=== PATIENT | male | born 1960 | race African-American/Black ===

== ENCOUNTER 2023-02-03 11:19 | Inpatient (IN) | payer OTHER ==
[~2023-02-03] VITALS: Ht 180.3 cm; Wt 87.8 kg
[2023-02-03] MEDS ORDERED: HYDROGEN PEROXIDE 118 ML SOLUTION ONE (12:04)
[2023-02-03] MEDS ORDERED: BACITRACIN 0.9 GM PACKET OINTMENT TP ONE (13:30)
[2023-02-03 13:56] LABS: COVID AG,FIA SOURCE NASOPHARYNGEAL
[2023-02-03 14:04] LABS: ALANINE AMINOTRANSFERASE 19 U/L (12-78); ALBUMIN 1.8 g/dL (3.4-5.0); ALKALINE PHOSPHATASE 166 U/L (46-116); ANION GAP 6 mmol/L (8-16); ASPARTATE AMINOTRANSFERASE 19 U/L (15-37); BILIRUBIN,TOTAL 0.6 mg/dL (0.1-1.0); CALCIUM, TOTAL 8.7 mg/dL (8.8-10.5); CARBON DIOXIDE 26 mmol/L (22-29); CHLORIDE 106 mmol/L (98-107); CREATININE 1.07 mg/dL (0.60-1.30); GLOMERULAR FILTR. RATE CALC > 60 mL/min (>60); GLUCOSE,RANDOM 155 mg/dL (70-110); LIPASE 35 U/L (73-393); SODIUM SERUM 138 mmol/L (136-145); TOTAL PROTEIN, SERUM 8.8 g/dL (6.4-8.2); UREA NITROGEN, BLOOD 13 mg/dL (7-18)
[2023-02-03 14:07] LABS: LACTIC ACID 0.9 mmol/L (0.4-2.0)
[2023-02-03] MEDS ORDERED: BACITRACIN 28 GM OINTMENT TP ONE (14:15)
[2023-02-03] MEDS ORDERED: POTASSIUM CHLORIDE 10% 40 MEQ/30 ML LIQUID UDCUP PO ONE (14:30)
[2023-02-03] MEDS ORDERED: CefTRIAXone 1 GM/DEXTROSE 50 ML IV ONE (14:30)
[2023-02-03 14:46] LABS: BASOPHILS % (AUTO) 0.2 % (0.0-2.0); EOSINOPHILS % (AUTO) 0.7 % (1.0-6.0); HEMATOCRIT 25.9 % (41-53); HEMOGLOBIN 7.6 g/dL (13.5-17.5); LYMPHOCYTES # (AUTO) 0.4 K/uL (1.0-4.8); MEAN CORPUSCULAR HEMOGLOBIN 21.1 pg (26.0-34.0); MEAN CORPUSCULAR HGB CONC 29.4 G/dL (31.0-37.0); MEAN CORPUSCULAR VOLUME 72 fL (80-100); MONOCYTES # (AUTO) 0.5 K/uL (0.1-1.0); MONOCYTES % (AUTO) 6.6 % (2.0-9.0); NEUTROPHILS # (AUTO) 6.4 K/uL (1.8-7.7); PLATELET COUNT (AUTO) 413 K/uL (150-450); RED BLOOD CELL COUNT(AUTO) 3.61 MIL/uL (4.50-5.90); RED CELL DISTRIBUTION WIDTH 18.1 % (11.5-14.5)
[2023-02-03 14:47] LABS: NEUTROPHILS % (AUTO) 86.5 % (40.0-70.0)
[2023-02-03 15:13] LABS: INFLUENZA TYPE A NEGATIVE FOR TYPE A (NEGATIVE); INFLUENZA TYPE B NEGATIVE FOR TYPE B (NEGATIVE)
[2023-02-03] MEDS ORDERED: *CLINICAL-LEVOFLOXACIN IVPB DOSING CLINICAL ONE (15:30)
[2023-02-03] MEDS ORDERED: ZOLPIDEM TARTRATE 5 MG TABLET PO PRN (15:30)
[2023-02-03] MEDS ORDERED: MAGNESIUM HYDROXIDE SUSPENSION 30 ML UDCUP PO PRN (15:30)
[2023-02-03] MEDS ORDERED: ACETAMINOPHEN 325 MG TABLET PO PRN (15:30)
[2023-02-03] MEDS ORDERED: BISACODYL 10 MG RECTAL RECTAL SUPPOSITORY PR PRN (15:30)
[2023-02-03] MEDS ORDERED: ONDANSETRON HCL 4 MG/2 ML VIAL IVP PRN (15:30)
[2023-02-03] MEDS ORDERED: MORPHINE SULFATE 2 MG/ML SYRINGE IVP PRN (15:30)
[2023-02-03] MEDS: LEVOFLOXACIN 750 MG/D5% WATER 150 ML IV SCH (16:25)
[2023-02-03] MEDS: HEPARIN SODIUM,PORCINE 5,000 UNITS/ML VIAL SQ SCH ×2 (16:30→23:05)
[2023-02-03] MEDS ORDERED: DIPHENOXYLATE/ATROP 2.5-0.025 MG TABLET PO ONE (18:15)
[2023-02-03] MEDS: DOCUSATE SODIUM 100 MG CAPSULE PO SCH (20:08)
[2023-02-03 21:43] LABS: BASOPHILS % (AUTO) 0.5 % (0.0-2.0); HEMOGLOBIN 7.7 g/dL (13.5-17.5); LYMPHOCYTES # (AUTO) 0.4 K/uL (1.0-4.8); LYMPHOCYTES % (AUTO) 5.5 % (22.0-44.0); MEAN CORPUSCULAR HEMOGLOBIN 21.3 pg (26.0-34.0); MEAN CORPUSCULAR HGB CONC 29.6 G/dL (31.0-37.0); MEAN CORPUSCULAR VOLUME 72 fL (80-100); MONOCYTES # (AUTO) 0.6 K/uL (0.1-1.0); MONOCYTES % (AUTO) 7.6 % (2.0-9.0); NEUTROPHILS # (AUTO) 6.6 K/uL (1.8-7.7); NEUTROPHILS % (AUTO) 85.4 % (40.0-70.0); PLATELET COUNT (AUTO) 398 K/uL (150-450); RED BLOOD CELL COUNT(AUTO) 3.61 MIL/uL (4.50-5.90); RED CELL DISTRIBUTION WIDTH 17.8 % (11.5-14.5)
[2023-02-04] VITALS (14 sets, daily range): BP systolic 128–151; BP diastolic 78–112
[2023-02-04] MEDS: HEPARIN SODIUM,PORCINE 5,000 UNITS/ML VIAL SQ SCH ×2 (07:13→16:21)
[2023-02-04 08:00] LABS: BASOPHILS % (AUTO) 0.7 % (0.0-2.0); EOSINOPHILS % (AUTO) 1.7 % (1.0-6.0); HEMATOCRIT 21.8 % (41-53); LYMPHOCYTES # (AUTO) 0.6 K/uL (1.0-4.8); LYMPHOCYTES % (AUTO) 10.8 % (22.0-44.0); MEAN CORPUSCULAR HEMOGLOBIN 21.6 pg (26.0-34.0); MEAN CORPUSCULAR HGB CONC 30.2 G/dL (31.0-37.0); MEAN CORPUSCULAR VOLUME 72 fL (80-100); MONOCYTES # (AUTO) 0.6 K/uL (0.1-1.0); MONOCYTES % (AUTO) 10.3 % (2.0-9.0); NEUTROPHILS # (AUTO) 4.4 K/uL (1.8-7.7); NEUTROPHILS % (AUTO) 76.5 % (40.0-70.0); PLATELET COUNT (AUTO) 318 K/uL (150-450); RED BLOOD CELL COUNT(AUTO) 3.05 MIL/uL (4.50-5.90); RED CELL DISTRIBUTION WIDTH 18.2 % (11.5-14.5)
[2023-02-04 08:06] LABS: HIV 1-2 SCREEN 4TH GEN W/RFLX Non Reactive (Non Reactive)
[2023-02-04 08:18] LABS: HEMOGLOBIN 6.6 g/dL (13.5-17.5)
[2023-02-04 08:24] LABS: ANION GAP 6 mmol/L (8-16); CALCIUM, TOTAL 8.5 mg/dL (8.8-10.5); CARBON DIOXIDE 24 mmol/L (22-29); CHLORIDE 107 mmol/L (98-107); CREATININE 1.12 mg/dL (0.60-1.30); GLOMERULAR FILTR. RATE CALC > 60 mL/min (>60); GLUCOSE,RANDOM 89 mg/dL (70-110); POTASSIUM 3.6 mmol/L (3.5-5.1); SODIUM SERUM 137 mmol/L (136-145); UREA NITROGEN, BLOOD 12 mg/dL (7-18)
[2023-02-04] MEDS: DOCUSATE SODIUM 100 MG CAPSULE PO SCH ×2 (09:00→21:00)
[2023-02-04] MEDS ORDERED: PANTOPRAZOLE SODIUM 40 MG DR TABLET PO SCH (09:00)
[2023-02-04 16:04] LABS: C.DIFF GDH ANTIGEN, Stool Negative (Negative); C.DIFF TOXINS A&B, Stool Negative (Negative)
[2023-02-04] MEDS: LEVOFLOXACIN 750 MG/D5% WATER 150 ML IV SCH (16:38)
[2023-02-04 16:49] LABS: HEMATOCRIT 24.4 % (41-53); HEMOGLOBIN 7.4 g/dL (13.5-17.5)
[2023-02-04] MEDS: HYDROCODONE/ACETAMINOPHEN 5-325 MG TABLET PO PRN (21:06)
[2023-02-04] MEDS ORDERED: HALOPERIDOL LACTATE 5 MG/ML VIAL IM ONE (22:30)
[2023-02-04] MEDS ORDERED: DiphenhydrAMINE HCL 50 MG/ML VIAL IM ONE (22:30)
[2023-02-04] MEDS ORDERED: LORazepam 2 MG/ML VIAL IM ONE (22:30)
[2023-02-05] VITALS (11 sets, daily range): BP systolic 142–157; BP diastolic 77–100
[2023-02-05 06:58] LABS: BASOPHILS % (AUTO) 0.6 % (0.0-2.0); EOSINOPHILS % (AUTO) 2.1 % (1.0-6.0); HEMATOCRIT 21.1 % (41-53); LYMPHOCYTES # (AUTO) 0.7 K/uL (1.0-4.8); LYMPHOCYTES % (AUTO) 14.7 % (22.0-44.0); MEAN CORPUSCULAR HEMOGLOBIN 22.6 pg (26.0-34.0); MEAN CORPUSCULAR HGB CONC 31.2 G/dL (31.0-37.0); MEAN CORPUSCULAR VOLUME 73 fL (80-100); MONOCYTES # (AUTO) 0.6 K/uL (0.1-1.0); MONOCYTES % (AUTO) 12.6 % (2.0-9.0); NEUTROPHILS # (AUTO) 3.3 K/uL (1.8-7.7); PLATELET COUNT (AUTO) 261 K/uL (150-450); RED BLOOD CELL COUNT(AUTO) 2.91 MIL/uL (4.50-5.90); RED CELL DISTRIBUTION WIDTH 19.6 % (11.5-14.5)
[2023-02-05 07:13] LABS: ANION GAP 7 mmol/L (8-16); CALCIUM, TOTAL 8.5 mg/dL (8.8-10.5); CARBON DIOXIDE 23 mmol/L (22-29); CHLORIDE 105 mmol/L (98-107); CREATININE 1.17 mg/dL (0.60-1.30); GLOMERULAR FILTR. RATE CALC > 60 mL/min (>60); GLUCOSE,RANDOM 108 mg/dL (70-110); POTASSIUM 3.5 mmol/L (3.5-5.1); SODIUM SERUM 135 mmol/L (136-145); UREA NITROGEN, BLOOD 11 mg/dL (7-18)
[2023-02-05 07:15] LABS: HEMOGLOBIN 6.6 g/dL (13.5-17.5)
[2023-02-05] MEDS: HEPARIN SODIUM,PORCINE 5,000 UNITS/ML VIAL SQ SCH ×3 (08:00→16:00)
[2023-02-05] MEDS: DOCUSATE SODIUM 100 MG CAPSULE PO SCH ×2 (08:17→20:49)
[2023-02-05] MEDS ORDERED: SODIUM CHLORIDE 0.9% 500 ML IV ONE (08:31)
[2023-02-05 13:13] LABS: FERRITIN 68 ng/mL (26-388)
[2023-02-05] MEDS: PANTOPRAZOLE SODIUM 40 MG/VIAL IVP SCH ×2 (13:15→20:45)
[2023-02-05] MEDS: LEVOFLOXACIN 750 MG/D5% WATER 150 ML IV SCH (16:36)
[2023-02-05] MEDS: HYDROCODONE/ACETAMINOPHEN 5-325 MG TABLET PO PRN (20:46)
[2023-02-05 22:38] LABS: APPEARANCE,URINE HAZY (CLEAR); BILIRUBIN,URINE NEGATIVE (NEGATIVE); GLUCOSE, URINE (UA) NEGATIVE (NEGATIVE); KETONES,URINE NEGATIVE (NEGATIVE); LEUKOCYTE ESTERASE ,URINE NEGATIVE (NEGATIVE); NITRATE,URINE NEGATIVE (NEGATIVE); OCCULT BLOOD,URINE SMALL (NEGATIVE); PROTEIN,URINE 100-200,SEE CONFIRM mg/dL (NEGATIVE); SPECIFIC GRAVITIY, URINE 1.021 (1.003-1.030)
[2023-02-05 22:45] LABS: AMPHET/METH SCREEN,URINE NEGATIVE (NEGATIVE); BARBITURATE SCREEN, URINE NEGATIVE (NEGATIVE); BENZODIAZEPINES SCREEN,URINE NEGATIVE (NEGATIVE); CANNABINOID SCREEN,URINE NEGATIVE (NEGATIVE); COCAINE SCREEN,URINE NEGATIVE (NEGATIVE); METHADONE SCREEN, URINE NEGATIVE (NEGATIVE); OPIATE SCREEN,URINE POSITIVE (NEGATIVE); PHENCYCLIDINE SCREEN,URINE NEGATIVE (NEGATIVE)
[2023-02-05 22:47] LABS: SULFOSALICYLIC ACID,URINE 2+ (Negative)
[2023-02-05 22:48] LABS: BACTERIA,URINE Few /HPF (None Seen); RBC,URINE 0-2 /HPF (0-2); SQUAMOUS EPITHELIAL CELL,UR Few /LPF (None Seen); WBC,URINE None Seen /HPF (0-5)
[2023-02-06 04:49] VITALS: BP 151/94
[2023-02-06] MEDS: HEPARIN SODIUM,PORCINE 5,000 UNITS/ML VIAL SQ SCH ×3 (08:18→16:12)
[2023-02-06 08:21] VITALS: BP 144/88
[2023-02-06] MEDS: PANTOPRAZOLE SODIUM 40 MG/VIAL IVP SCH ×2 (08:21→20:30)
[2023-02-06] MEDS: DOCUSATE SODIUM 100 MG CAPSULE PO SCH ×2 (08:26→20:30)
[2023-02-06 09:03] LABS: BASOPHILS % (AUTO) 0.7 % (0.0-2.0); EOSINOPHILS % (AUTO) 0.8 % (1.0-6.0); HEMATOCRIT 26.5 % (41-53); HEMOGLOBIN 8.2 g/dL (13.5-17.5); LYMPHOCYTES # (AUTO) 0.9 K/uL (1.0-4.8); LYMPHOCYTES % (AUTO) 17.7 % (22.0-44.0); MEAN CORPUSCULAR HEMOGLOBIN 22.6 pg (26.0-34.0); MEAN CORPUSCULAR VOLUME 73 fL (80-100); MONOCYTES # (AUTO) 0.5 K/uL (0.1-1.0); MONOCYTES % (AUTO) 10.5 % (2.0-9.0); NEUTROPHILS # (AUTO) 3.6 K/uL (1.8-7.7); NEUTROPHILS % (AUTO) 70.3 % (40.0-70.0); PLATELET COUNT (AUTO) 295 K/uL (150-450); RED BLOOD CELL COUNT(AUTO) 3.64 MIL/uL (4.50-5.90); RED CELL DISTRIBUTION WIDTH 19.5 % (11.5-14.5)
[2023-02-06 09:06] LABS: ANION GAP 7 mmol/L (8-16); CALCIUM, TOTAL 8.6 mg/dL (8.8-10.5); CARBON DIOXIDE 24 mmol/L (22-29); CHLORIDE 101 mmol/L (98-107); CREATININE 1.26 mg/dL (0.60-1.30); GLOMERULAR FILTR. RATE CALC > 60 mL/min (>60); GLUCOSE,RANDOM 160 mg/dL (70-110); POTASSIUM 4.4 mmol/L (3.5-5.1); SODIUM SERUM 132 mmol/L (136-145); UREA NITROGEN, BLOOD 12 mg/dL (7-18)
[2023-02-06 09:20] LABS: % IRON SATURATION 15.3 % (30-44)
[2023-02-06] MEDS ORDERED: LOPERAMIDE HCL 2 MG CAPSULE PO PRN (09:45)
[2023-02-06] MEDS: MICONAZOLE NITRATE 2% 142 GM CREAM [BAZA] TP SCH (12:22)
[2023-02-06] MEDS: FERROUS SULFATE 325 MG EC TABLET PO SCH ×2 (12:42→18:17)
[2023-02-06 16:04] VITALS: BP 148/94
[2023-02-06] MEDS: LEVOFLOXACIN 750 MG/D5% WATER 150 ML IV SCH (16:13)
[2023-02-06 19:32] VITALS: BP 135/84
[2023-02-06 23:30] VITALS: BP 137/80
[2023-02-07 04:19] VITALS: BP 141/87
[2023-02-07] MEDS: HEPARIN SODIUM,PORCINE 5,000 UNITS/ML VIAL SQ SCH ×5 (08:00→23:40)
[2023-02-07 08:09] VITALS: BP 148/91
[2023-02-07] MEDS: FERROUS SULFATE 325 MG EC TABLET PO SCH ×3 (08:27→16:13)
[2023-02-07] MEDS: PANTOPRAZOLE SODIUM 40 MG/VIAL IVP SCH ×3 (09:00→20:02)
[2023-02-07] MEDS: DOCUSATE SODIUM 100 MG CAPSULE PO SCH ×2 (09:54→19:59)
[2023-02-07] MEDS: MICONAZOLE NITRATE 2% 142 GM CREAM [BAZA] TP SCH (09:54)
[2023-02-07 13:47] LABS: COVID AG,FIA SOURCE NASAL SWAB
[2023-02-07 15:36] VITALS: BP 142/99
[2023-02-07] MEDS: LEVOFLOXACIN 750 MG/D5% WATER 150 ML IV SCH (16:00)
[2023-02-07 19:24] VITALS: BP 149/97
== END 2023-02-07 23:42 | DRG 193 ==
LOC: EMS 11:25 → 6N 02-04 06:34
PROVIDERS: ADMIT Internal Medicine; ATTEND Internal Medicine
PROC: 30233N1 Transfusion of Nonautologous Red Blood Cells into Peripheral Vein, Percutaneous Approach (ICD-10-PCS; principal; 2023-02-04)
DX: J18.9 Pneumonia, unspecified organism (principal); E43 Unspecified severe protein-calorie malnutrition; G93.41 Metabolic encephalopathy; M86.8X7 Other osteomyelitis, ankle and foot; L03.115 Cellulitis of right lower limb; K56.7 Ileus, unspecified; E87.6 Hypokalemia; F25.9 Schizoaffective disorder, unspecified; B87.89 Myiasis of other sites; Z20.822 Contact with and (suspected) exposure to COVID-19; I87.8 Other specified disorders of veins; L97.519 Non-pressure chronic ulcer of other part of right foot with unspecified severity; L97.529 Non-pressure chronic ulcer of other part of left foot with unspecified severity; D64.9 Anemia, unspecified; Z68.27 Body mass index [BMI] 27.0-27.9, adult
CPT/HCPCS: 70450; 71045; 71250; 72192; 74150; 80048; 80053; 80307; 81001; 81002; 82271; 82728; 83540; 83550; 83605; 83690; 83735; 83880; 84484; 85014; 85018; 85025; 86850; 86900; 86901; 86923; 87040; 87324; 87389; 87449; 87804; 93005; 93925; 99285; C9113; G0480; J0696; J1200; J1630; J1644; J1956; J2060; J2270; J2405; J7040; P9016; 36415-L1; 36415-TC

== ENCOUNTER 2023-02-07 16:37 | Inpatient (IN) | payer MEDICARE, MEDICAID ==
[~2023-02-07] VITALS: Ht 185.4 cm; Wt 96.2 kg
[2023-02-08 00:11] VITALS: BP 150/100; PULSE 89; RESP 18; TEMP 97.7
[2023-02-08] MEDS ORDERED: MAGNESIUM HYDROXIDE SUSPENSION 30 ML UDCUP PO PRN (06:45)
[2023-02-08] MEDS ORDERED: CloNIDine HCL 0.1 MG TABLET PO PRN (06:45)
[2023-02-08] MEDS ORDERED: PETROLATUM,WHITE 28 GM JELLY TP PRN (06:45)
[2023-02-08] MEDS ORDERED: MAG HYDROX/AL HYDROX/SIMETH ES 30 ML SUSPENSION UDCUP PO PRN (06:45)
[2023-02-08] MEDS ORDERED: ALBUTEROL SULFATE HFA 90 MCG/PUFF 8 GM INHALER IH PRN (06:45)
[2023-02-08] MEDS ORDERED: IBUPROFEN 400 MG TABLET PO PRN (06:45)
[2023-02-08] MEDS ORDERED: ONDANSETRON HCL 4 MG TABLET PO PRN (06:45)
[2023-02-08] MEDS ORDERED: ACETAMINOPHEN 325 MG TABLET PO PRN (06:45)
[2023-02-08] MEDS ORDERED: NICOTINE 14 MG/24 HOUR PATCH TD PRN (06:45)
[2023-02-08] MEDS ORDERED: DOCUSATE SODIUM 100 MG CAPSULE PO PRN (06:45)
[2023-02-08] MEDS ORDERED: GuaiFENesin/D-METHORPHAN [SUGAR-FREE] 200-20MG/10 ML SYRUP UDCUP PO PRN (06:45)
[2023-02-08 08:40] VITALS: BP 140/90; PULSE 81; RESP 17; TEMP 97.7
[2023-02-08] MEDS: LEVOFLOXACIN 750 MG TABLET PO SCH (09:13)
[2023-02-08] MEDS: CLINDAMYCIN HCL 300 MG CAPSULE PO SCH ×3 (09:13→23:31)
[2023-02-08 12:28] VITALS: TEMP 98.3
[2023-02-08 16:10] VITALS: BP 130/82; PULSE 81; RESP 17; TEMP 97.8
[2023-02-08 20:22] VITALS: BP 145/89; PULSE 89; RESP 17; TEMP 97.2
[2023-02-08] MEDS: RisperiDONE 0.5 MG TABLET PO SCH (20:35)
[2023-02-09] VITALS (7 sets, daily range): BP systolic 144–156; BP diastolic 91–98; PULSE 84–89; RESP 17–18; TEMP 96.7–97.7
[2023-02-09] MEDS: RisperiDONE 0.5 MG TABLET PO SCH ×2 (08:26→20:35)
[2023-02-09] MEDS: CITALOPRAM HYDROBROMIDE 10 MG TABLET PO SCH (08:26)
[2023-02-09] MEDS: LEVOFLOXACIN 750 MG TABLET PO SCH (08:26)
[2023-02-09] MEDS: CLINDAMYCIN HCL 300 MG CAPSULE PO SCH ×3 (08:26→23:08)
[2023-02-10] MEDS: CITALOPRAM HYDROBROMIDE 10 MG TABLET PO SCH (08:29)
[2023-02-10] MEDS: CLINDAMYCIN HCL 300 MG CAPSULE PO SCH ×3 (08:29→23:34)
[2023-02-10] MEDS: RisperiDONE 0.5 MG TABLET PO SCH ×2 (08:29→20:52)
[2023-02-10] MEDS: LEVOFLOXACIN 750 MG TABLET PO SCH (08:29)
[2023-02-10 08:45] VITALS: BP 129/76; PULSE 79; RESP 18; TEMP 97.8
[2023-02-10 12:00] VITALS: RESP 16; TEMP 97.7
[2023-02-10] MEDS: MUPIROCIN CALCIUM 2% 22 GM OINTMENT NASAL SCH (16:14)
[2023-02-10 17:07] VITALS: BP 157/86; PULSE 84; RESP 18; TEMP 98.1
[2023-02-10 22:00] VITALS: BP 156/94; PULSE 90; RESP 17; TEMP 98.1
[2023-02-11 00:01] VITALS: RESP 18
[2023-02-11 04:14] VITALS: RESP 18
[2023-02-11] MEDS: CITALOPRAM HYDROBROMIDE 10 MG TABLET PO SCH (09:30)
[2023-02-11] MEDS: CLINDAMYCIN HCL 300 MG CAPSULE PO SCH ×2 (09:30→16:36)
[2023-02-11] MEDS: MUPIROCIN CALCIUM 2% 22 GM OINTMENT NASAL SCH ×2 (09:30→16:56)
[2023-02-11] MEDS: LEVOFLOXACIN 750 MG TABLET PO SCH (09:30)
[2023-02-11] MEDS: RisperiDONE 0.5 MG TABLET PO SCH ×2 (09:30→21:05)
[2023-02-11 10:17] VITALS: BP 144/85; PULSE 86; RESP 18; TEMP 97.7
[2023-02-11 12:54] VITALS: RESP 18; TEMP 97.8
[2023-02-11 16:23] VITALS: BP 140/79; PULSE 91; RESP 17; TEMP 97.2
[2023-02-11 20:10] VITALS: BP 132/77; PULSE 68; RESP 18; TEMP 98.1
[2023-02-11] MEDS: ZOLPIDEM TARTRATE 10 MG TABLET PO PRN (21:05)
[2023-02-12 00:16] VITALS: RESP 18
[2023-02-12] MEDS: CLINDAMYCIN HCL 300 MG CAPSULE PO SCH ×4 (00:21→23:26)
[2023-02-12 04:12] VITALS: RESP 18
[2023-02-12 08:48] VITALS: BP 153/87; PULSE 82; RESP 18; TEMP 97.9
[2023-02-12] MEDS: LEVOFLOXACIN 750 MG TABLET PO SCH (10:27)
[2023-02-12] MEDS: RisperiDONE 0.5 MG TABLET PO SCH ×2 (10:27→20:20)
[2023-02-12] MEDS: CITALOPRAM HYDROBROMIDE 10 MG TABLET PO SCH (10:27)
[2023-02-12] MEDS: MUPIROCIN CALCIUM 2% 22 GM OINTMENT NASAL SCH ×2 (10:28→17:00)
[2023-02-12 12:11] VITALS: TEMP 98
[2023-02-12] MEDS: ZINC SULFATE 220 MG CAPSULE PO SCH (16:03)
[2023-02-12] MEDS: MULTIVITAMINS WITH MINERALS, THERAPEUTIC TABLET PO SCH (16:05)
[2023-02-12 16:09] VITALS: BP 131/77; PULSE 98; RESP 17; TEMP 97.8
[2023-02-13 03:01] VITALS: RESP 18
[2023-02-13 07:04] LABS: COVID AG,FIA SOURCE NASAL SWAB
[2023-02-13 07:05] VITALS: RESP 18
[2023-02-13] MEDS: CLINDAMYCIN HCL 300 MG CAPSULE PO SCH ×2 (08:17→16:07)
[2023-02-13] MEDS: MULTIVITAMINS WITH MINERALS, THERAPEUTIC TABLET PO SCH (08:17)
[2023-02-13] MEDS: ZINC SULFATE 220 MG CAPSULE PO SCH (08:18)
[2023-02-13] MEDS: CITALOPRAM HYDROBROMIDE 10 MG TABLET PO SCH (08:18)
[2023-02-13] MEDS: MUPIROCIN CALCIUM 2% 22 GM OINTMENT NASAL SCH ×2 (08:18→16:07)
[2023-02-13] MEDS: LEVOFLOXACIN 750 MG TABLET PO SCH (08:18)
[2023-02-13] MEDS: RisperiDONE 0.5 MG TABLET PO SCH (08:18)
[2023-02-13 12:00] VITALS: RESP 18; TEMP 97.2
[2023-02-13 17:02] VITALS: BP 146/82; PULSE 95; RESP 18; TEMP 98.7
[2023-02-13] MEDS: HALOPERIDOL 5 MG TABLET PO PRN (19:30)
[2023-02-13] MEDS: LORazepam 2 MG TABLET PO PRN (19:30)
[2023-02-13 20:47] VITALS: BP 144/86; PULSE 102; RESP 18; TEMP 98.1
[2023-02-13] MEDS: DONEPEZIL HCL 5 MG TABLET PO SCH (21:40)
[2023-02-13] MEDS: ZOLPIDEM TARTRATE 10 MG TABLET PO PRN (21:40)
[2023-02-13] MEDS: MEMANTINE HCL 5 MG TABLET PO SCH (21:41)
[2023-02-13] MEDS: RisperiDONE 2 MG TABLET PO SCH (21:41)
[2023-02-14 04:17] VITALS: RESP 18
[2023-02-14 08:38] VITALS: BP 146/86; PULSE 77; RESP 18; TEMP 97
[2023-02-14] MEDS: MUPIROCIN CALCIUM 2% 22 GM OINTMENT NASAL SCH ×2 (08:42→16:20)
[2023-02-14] MEDS: CITALOPRAM HYDROBROMIDE 10 MG TABLET PO SCH (08:43)
[2023-02-14] MEDS: LEVOFLOXACIN 750 MG TABLET PO SCH (08:43)
[2023-02-14] MEDS: ZINC SULFATE 220 MG CAPSULE PO SCH (08:43)
[2023-02-14] MEDS: CLINDAMYCIN HCL 300 MG CAPSULE PO SCH ×3 (08:43→16:20)
[2023-02-14] MEDS: RisperiDONE 2 MG TABLET PO SCH ×2 (08:44→21:07)
[2023-02-14] MEDS: MULTIVITAMINS WITH MINERALS, THERAPEUTIC TABLET PO SCH (08:44)
[2023-02-14 12:13] VITALS: TEMP 97.6
[2023-02-14 16:00] VITALS: BP 140/79; PULSE 76; RESP 18; TEMP 98
[2023-02-14] MEDS: DONEPEZIL HCL 5 MG TABLET PO SCH (21:07)
[2023-02-14] MEDS: MEMANTINE HCL 5 MG TABLET PO SCH (21:07)
[2023-02-14 21:49] VITALS: BP 136/90; PULSE 74; RESP 18; TEMP 97.4
[2023-02-15] MEDS: CLINDAMYCIN HCL 300 MG CAPSULE PO SCH ×3 (00:13→16:22)
[2023-02-15 00:23] VITALS: RESP 17
[2023-02-15 04:21] VITALS: RESP 18
[2023-02-15] MEDS: MULTIVITAMINS WITH MINERALS, THERAPEUTIC TABLET PO SCH (08:35)
[2023-02-15] MEDS: CITALOPRAM HYDROBROMIDE 10 MG TABLET PO SCH (08:35)
[2023-02-15] MEDS: ZINC SULFATE 220 MG CAPSULE PO SCH (08:36)
[2023-02-15] MEDS: LEVOFLOXACIN 750 MG TABLET PO SCH (08:36)
[2023-02-15] MEDS: MUPIROCIN CALCIUM 2% 22 GM OINTMENT NASAL SCH ×2 (08:36→16:22)
[2023-02-15] MEDS: RisperiDONE 2 MG TABLET PO SCH (08:36)
[2023-02-15 09:30] VITALS: BP 146/85; PULSE 93; RESP 18; TEMP 98
[2023-02-15 12:09] VITALS: TEMP 97.6
[2023-02-15 16:15] VITALS: BP 145/90; PULSE 83; RESP 16; TEMP 97.9
[2023-02-15 20:25] VITALS: BP 140/90; PULSE 85; RESP 17; TEMP 97.8
[2023-02-15] MEDS: MEMANTINE HCL 5 MG TABLET PO SCH (21:06)
[2023-02-15] MEDS: RisperiDONE 1 MG TABLET PO SCH (21:06)
[2023-02-15] MEDS: DONEPEZIL HCL 5 MG TABLET PO SCH (21:06)
[2023-02-16] MEDS: CLINDAMYCIN HCL 300 MG CAPSULE PO SCH ×3 (00:03→17:36)
[2023-02-16 00:09] VITALS: RESP 18
[2023-02-16 04:53] VITALS: RESP 18
[2023-02-16] MEDS: LEVOFLOXACIN 750 MG TABLET PO SCH (08:24)
[2023-02-16] MEDS: CITALOPRAM HYDROBROMIDE 10 MG TABLET PO SCH (08:24)
[2023-02-16] MEDS: ZINC SULFATE 220 MG CAPSULE PO SCH (08:24)
[2023-02-16] MEDS: MULTIVITAMINS WITH MINERALS, THERAPEUTIC TABLET PO SCH (08:26)
[2023-02-16] MEDS: RisperiDONE 1 MG TABLET PO SCH ×2 (08:26→20:58)
[2023-02-16 08:41] VITALS: BP 155/97; PULSE 101; RESP 17; TEMP 97.2
[2023-02-16 13:16] VITALS: TEMP 97.5
[2023-02-16 16:04] VITALS: BP 158/92; PULSE 102; RESP 18; TEMP 97.7
[2023-02-16] MEDS: MEMANTINE HCL 5 MG TABLET PO SCH (20:58)
[2023-02-16] MEDS: DONEPEZIL HCL 5 MG TABLET PO SCH (20:58)
[2023-02-16 21:57] VITALS: BP 130/80; PULSE 80; RESP 18; TEMP 98
[2023-02-17] MEDS: CLINDAMYCIN HCL 300 MG CAPSULE PO SCH ×4 (00:07→23:40)
[2023-02-17 01:30] VITALS: RESP 18
[2023-02-17 04:38] VITALS: RESP 17
[2023-02-17] MEDS: RisperiDONE 1 MG TABLET PO SCH ×2 (08:24→20:53)
[2023-02-17] MEDS: ZINC SULFATE 220 MG CAPSULE PO SCH (08:24)
[2023-02-17] MEDS: CITALOPRAM HYDROBROMIDE 10 MG TABLET PO SCH (08:24)
[2023-02-17] MEDS: ASCORBIC ACID 500 MG TABLET PO SCH (08:24)
[2023-02-17] MEDS: LEVOFLOXACIN 750 MG TABLET PO SCH (08:24)
[2023-02-17] MEDS: MULTIVITAMINS WITH MINERALS, THERAPEUTIC TABLET PO SCH (08:24)
[2023-02-17 08:44] VITALS: BP 152/93; PULSE 97; RESP 18; TEMP 96.9
[2023-02-17 12:43] VITALS: TEMP 97.1
[2023-02-17 16:28] VITALS: BP 144/91; PULSE 89; RESP 17; TEMP 97.8
[2023-02-17] MEDS: DONEPEZIL HCL 5 MG TABLET PO SCH (20:53)
[2023-02-17] MEDS: MEMANTINE HCL 5 MG TABLET PO SCH (20:53)
[2023-02-17 21:03] VITALS: BP 145/82; PULSE 93; RESP 18; TEMP 97
[2023-02-18] VITALS: RESP 18
[2023-02-18 04:10] VITALS: RESP 18
[2023-02-18] MEDS: ASCORBIC ACID 500 MG TABLET PO SCH (08:17)
[2023-02-18] MEDS: LEVOFLOXACIN 750 MG TABLET PO SCH (08:17)
[2023-02-18] MEDS: CITALOPRAM HYDROBROMIDE 10 MG TABLET PO SCH (08:17)
[2023-02-18] MEDS: ZINC SULFATE 220 MG CAPSULE PO SCH (08:17)
[2023-02-18] MEDS: CLINDAMYCIN HCL 300 MG CAPSULE PO SCH (08:17)
[2023-02-18] MEDS: RisperiDONE 1 MG TABLET PO SCH ×2 (08:19→21:18)
[2023-02-18] MEDS: MULTIVITAMINS WITH MINERALS, THERAPEUTIC TABLET PO SCH (08:19)
[2023-02-18 09:40] VITALS: BP 140/78; PULSE 87; RESP 18; TEMP 97.5
[2023-02-18 12:50] VITALS: RESP 18; TEMP 97.6
[2023-02-18 16:00] VITALS: BP 148/92; PULSE 89; RESP 19; TEMP 97.4
[2023-02-18] MEDS: MEMANTINE HCL 5 MG TABLET PO SCH (21:18)
[2023-02-18] MEDS: DONEPEZIL HCL 5 MG TABLET PO SCH (21:18)
[2023-02-18 23:32] VITALS: RESP 18
[2023-02-19 01:12] VITALS: RESP 17
[2023-02-19 04:51] VITALS: RESP 18
[2023-02-19 07:57] LABS: COVID AG,FIA SOURCE NASAL SWAB
[2023-02-19] MEDS: CITALOPRAM HYDROBROMIDE 10 MG TABLET PO SCH (08:01)
[2023-02-19] MEDS: ASCORBIC ACID 500 MG TABLET PO SCH (08:01)
[2023-02-19] MEDS: ZINC SULFATE 220 MG CAPSULE PO SCH (08:01)
[2023-02-19] MEDS: MULTIVITAMINS WITH MINERALS, THERAPEUTIC TABLET PO SCH (08:02)
[2023-02-19] MEDS: RisperiDONE 1 MG TABLET PO SCH ×2 (08:02→20:50)
[2023-02-19 09:12] VITALS: BP 149/88; PULSE 94; RESP 17; TEMP 97.1
[2023-02-19 12:14] VITALS: TEMP 96.9
[2023-02-19] MEDS: MUPIROCIN CALCIUM 2% 22 GM OINTMENT NASAL SCH (16:09)
[2023-02-19 17:20] VITALS: BP 153/92; PULSE 89; RESP 17; TEMP 97.6
[2023-02-19] MEDS: MEMANTINE HCL 5 MG TABLET PO SCH (20:49)
[2023-02-19] MEDS: DONEPEZIL HCL 5 MG TABLET PO SCH (20:49)
[2023-02-19 22:12] VITALS: BP 140/85; PULSE 85; RESP 18; TEMP 98
[2023-02-20 00:36] VITALS: RESP 18
[2023-02-20 04:55] VITALS: RESP 18
[2023-02-20] MEDS: ASCORBIC ACID 500 MG TABLET PO SCH (08:27)
[2023-02-20] MEDS: ZINC SULFATE 220 MG CAPSULE PO SCH (08:27)
[2023-02-20] MEDS: CITALOPRAM HYDROBROMIDE 10 MG TABLET PO SCH (08:27)
[2023-02-20] MEDS: MUPIROCIN CALCIUM 2% 22 GM OINTMENT NASAL SCH ×2 (08:27→16:15)
[2023-02-20] MEDS: RisperiDONE 1 MG TABLET PO SCH ×2 (08:28→21:13)
[2023-02-20] MEDS: MULTIVITAMINS WITH MINERALS, THERAPEUTIC TABLET PO SCH (08:29)
[2023-02-20 09:25] VITALS: BP 120/72; PULSE 81; RESP 17; TEMP 97.9
[2023-02-20 12:28] VITALS: RESP 18; TEMP 97.8
[2023-02-20 16:00] VITALS: BP 146/90; PULSE 89; TEMP 97.2
[2023-02-20] MEDS: MEMANTINE HCL 5 MG TABLET PO SCH (21:13)
[2023-02-20] MEDS: DONEPEZIL HCL 5 MG TABLET PO SCH (21:13)
[2023-02-20 22:45] VITALS: BP 166/94; PULSE 91; RESP 18; TEMP 97.2
[2023-02-21] VITALS: RESP 19
[2023-02-21 08:00] VITALS: BP 142/82; PULSE 80; RESP 20; TEMP 97.1
[2023-02-21] MEDS: RisperiDONE 1 MG TABLET PO SCH ×2 (08:34→20:11)
[2023-02-21] MEDS: MULTIVITAMINS WITH MINERALS, THERAPEUTIC TABLET PO SCH (08:34)
[2023-02-21] MEDS: ZINC SULFATE 220 MG CAPSULE PO SCH (08:34)
[2023-02-21] MEDS: CITALOPRAM HYDROBROMIDE 10 MG TABLET PO SCH (08:35)
[2023-02-21] MEDS: ASCORBIC ACID 500 MG TABLET PO SCH (08:35)
[2023-02-21] MEDS: MUPIROCIN CALCIUM 2% 22 GM OINTMENT NASAL SCH ×2 (08:35→16:52)
[2023-02-21 12:00] VITALS: TEMP 98.4
[2023-02-21 16:52] VITALS: BP 148/86; PULSE 84; RESP 20; TEMP 98
[2023-02-21] MEDS: MEMANTINE HCL 5 MG TABLET PO SCH (20:11)
[2023-02-21] MEDS: DONEPEZIL HCL 5 MG TABLET PO SCH (20:11)
[2023-02-21 22:16] VITALS: BP 131/80; PULSE 90; RESP 20; TEMP 97.9
[2023-02-22] MEDS: RisperiDONE 1 MG TABLET PO SCH ×2 (08:23→20:23)
[2023-02-22] MEDS: MUPIROCIN CALCIUM 2% 22 GM OINTMENT NASAL SCH ×2 (08:24→16:31)
[2023-02-22] MEDS: CITALOPRAM HYDROBROMIDE 10 MG TABLET PO SCH (08:24)
[2023-02-22] MEDS: ASCORBIC ACID 500 MG TABLET PO SCH (08:24)
[2023-02-22] MEDS: MULTIVITAMINS WITH MINERALS, THERAPEUTIC TABLET PO SCH (08:24)
[2023-02-22 09:26] VITALS: BP 151/83; PULSE 89; RESP 18; TEMP 97.6
[2023-02-22 13:29] VITALS: RESP 18; TEMP 97.6
[2023-02-22 16:43] VITALS: RESP 18; TEMP 97.8
[2023-02-22] MEDS: DONEPEZIL HCL 5 MG TABLET PO SCH (20:22)
[2023-02-22] MEDS: MEMANTINE HCL 5 MG TABLET PO SCH (20:23)
[2023-02-22 21:07] VITALS: RESP 17
[2023-02-23 00:08] VITALS: RESP 18
[2023-02-23 04:45] VITALS: RESP 17
[2023-02-23 09:00] VITALS: BP 152/90; PULSE 86; RESP 18; TEMP 97
[2023-02-23] MEDS: CITALOPRAM HYDROBROMIDE 10 MG TABLET PO SCH (10:53)
[2023-02-23] MEDS: MULTIVITAMINS WITH MINERALS, THERAPEUTIC TABLET PO SCH (10:53)
[2023-02-23] MEDS: RisperiDONE 1 MG TABLET PO SCH ×2 (10:53→21:39)
[2023-02-23] MEDS: MUPIROCIN CALCIUM 2% 22 GM OINTMENT NASAL SCH ×2 (10:54→17:11)
[2023-02-23] MEDS: ASCORBIC ACID 500 MG TABLET PO SCH (10:54)
[2023-02-23 12:00] VITALS: TEMP 97.6
[2023-02-23 16:12] VITALS: BP 147/93; PULSE 72; RESP 18; TEMP 97.6; TEMP 97.8
[2023-02-23 20:30] VITALS: BP 138/77; PULSE 70; RESP 18; TEMP 98
[2023-02-23] MEDS: MEMANTINE HCL 5 MG TABLET PO SCH (21:38)
[2023-02-23] MEDS: DONEPEZIL HCL 5 MG TABLET PO SCH (21:39)
[2023-02-24 00:55] VITALS: RESP 17
[2023-02-24 05:02] VITALS: RESP 17
[2023-02-24] MEDS: CITALOPRAM HYDROBROMIDE 10 MG TABLET PO SCH (08:25)
[2023-02-24] MEDS: ASCORBIC ACID 500 MG TABLET PO SCH (08:25)
[2023-02-24] MEDS: RisperiDONE 1 MG TABLET PO SCH ×2 (08:25→20:15)
[2023-02-24] MEDS: MULTIVITAMINS WITH MINERALS, THERAPEUTIC TABLET PO SCH (08:25)
[2023-02-24] MEDS: MUPIROCIN CALCIUM 2% 22 GM OINTMENT NASAL SCH (08:26)
[2023-02-24 08:45] VITALS: BP 168/96; PULSE 87; RESP 18; TEMP 98
[2023-02-24 13:11] VITALS: TEMP 97.6
[2023-02-24 16:31] VITALS: BP 146/86; PULSE 87; RESP 18; TEMP 97.7
[2023-02-24] MEDS: DONEPEZIL HCL 5 MG TABLET PO SCH (20:15)
[2023-02-24] MEDS: MEMANTINE HCL 5 MG TABLET PO SCH (20:15)
[2023-02-24] MEDS: LORazepam 2 MG TABLET PO PRN (20:30)
[2023-02-24] MEDS: ZOLPIDEM TARTRATE 10 MG TABLET PO PRN (21:42)
[2023-02-24 21:44] VITALS: BP 156/94; PULSE 97; RESP 18; TEMP 97.1
[2023-02-25 00:29] VITALS: RESP 18
[2023-02-25 04:23] VITALS: RESP 18
[2023-02-25] MEDS: CITALOPRAM HYDROBROMIDE 10 MG TABLET PO SCH (08:48)
[2023-02-25] MEDS: MULTIVITAMINS WITH MINERALS, THERAPEUTIC TABLET PO SCH (08:48)
[2023-02-25] MEDS: MENTHOL/ZINC OXIDE 113 GM OINTMENT TP SCH ×2 (08:48→21:33)
[2023-02-25] MEDS: ASCORBIC ACID 500 MG TABLET PO SCH (08:48)
[2023-02-25] MEDS: RisperiDONE 1 MG TABLET PO SCH ×2 (08:52→21:35)
[2023-02-25 09:30] VITALS: BP 157/95; PULSE 78; RESP 17; TEMP 96.8
[2023-02-25 12:43] VITALS: TEMP 98
[2023-02-25] MEDS: PETROLATUM,WHITE 28 GM JELLY TP SCH (13:05)
[2023-02-25 16:55] VITALS: BP 143/88; PULSE 79; RESP 18; TEMP 97.9
[2023-02-25] MEDS: LORazepam 2 MG TABLET PO PRN (20:09)
[2023-02-25] MEDS: HALOPERIDOL 5 MG TABLET PO PRN (20:09)
[2023-02-25 20:12] VITALS: BP 136/71; PULSE 80; RESP 18; TEMP 97.4
[2023-02-25] MEDS: MEMANTINE HCL 5 MG TABLET PO SCH (21:33)
[2023-02-25] MEDS: ZOLPIDEM TARTRATE 10 MG TABLET PO PRN (21:35)
[2023-02-25] MEDS: DONEPEZIL HCL 5 MG TABLET PO SCH (21:35)
[2023-02-26 00:08] VITALS: RESP 18
[2023-02-26] MEDS: LOPERAMIDE HCL 2 MG CAPSULE PO PRN (03:44)
[2023-02-26 04:21] VITALS: RESP 18
[2023-02-26 06:48] LABS: COVID AG,FIA SOURCE NASOPHARYNGEAL
[2023-02-26] MEDS: MULTIVITAMINS WITH MINERALS, THERAPEUTIC TABLET PO SCH (08:22)
[2023-02-26] MEDS: CITALOPRAM HYDROBROMIDE 10 MG TABLET PO SCH (08:22)
[2023-02-26] MEDS: ASCORBIC ACID 500 MG TABLET PO SCH (08:22)
[2023-02-26] MEDS: PETROLATUM,WHITE 28 GM JELLY TP SCH (08:23)
[2023-02-26] MEDS: RisperiDONE 1 MG TABLET PO SCH ×2 (08:23→20:19)
[2023-02-26] MEDS: MENTHOL/ZINC OXIDE 113 GM OINTMENT TP SCH ×2 (08:23→20:19)
[2023-02-26 10:42] VITALS: BP 146/88; PULSE 84; RESP 17; TEMP 97.9
[2023-02-26 12:40] VITALS: TEMP 98
[2023-02-26 16:43] VITALS: BP 142/86; PULSE 80; RESP 18; TEMP 97.7
[2023-02-26] MEDS: MEMANTINE HCL 5 MG TABLET PO SCH (20:19)
[2023-02-26] MEDS: DONEPEZIL HCL 5 MG TABLET PO SCH (20:19)
[2023-02-26 20:47] VITALS: BP 147/79; PULSE 74; RESP 18; TEMP 97.2
[2023-02-27 04:58] VITALS: RESP 18
[2023-02-27] MEDS: MENTHOL/ZINC OXIDE 113 GM OINTMENT TP SCH ×2 (08:17→20:55)
[2023-02-27] MEDS: CITALOPRAM HYDROBROMIDE 10 MG TABLET PO SCH (08:17)
[2023-02-27] MEDS: RisperiDONE 1 MG TABLET PO SCH ×2 (08:17→20:56)
[2023-02-27] MEDS: ASCORBIC ACID 500 MG TABLET PO SCH (08:17)
[2023-02-27] MEDS: MULTIVITAMINS WITH MINERALS, THERAPEUTIC TABLET PO SCH (08:17)
[2023-02-27] MEDS: PETROLATUM,WHITE 28 GM JELLY TP SCH (08:18)
[2023-02-27 08:50] VITALS: BP 159/85; PULSE 89; RESP 18; TEMP 97.1
[2023-02-27 12:44] VITALS: RESP 17; TEMP 97.6
[2023-02-27 16:26] VITALS: BP 147/80; PULSE 89; RESP 18; TEMP 97
[2023-02-27] MEDS: LORazepam 2 MG TABLET PO PRN (19:45)
[2023-02-27 20:30] VITALS: BP 136/79; PULSE 92; RESP 18; TEMP 97.2
[2023-02-27] MEDS: DONEPEZIL HCL 5 MG TABLET PO SCH (20:56)
[2023-02-27] MEDS: ZOLPIDEM TARTRATE 10 MG TABLET PO PRN (20:56)
[2023-02-27] MEDS: MEMANTINE HCL 5 MG TABLET PO SCH (20:56)
[2023-02-27] MEDS: LOPERAMIDE HCL 2 MG CAPSULE PO PRN (20:57)
[2023-02-28 00:10] VITALS: RESP 18
[2023-02-28 04:15] VITALS: RESP 18
[2023-02-28 09:55] VITALS: BP 145/93; PULSE 75; RESP 18; TEMP 96.8
[2023-02-28] MEDS: MULTIVITAMINS WITH MINERALS, THERAPEUTIC TABLET PO SCH (10:54)
[2023-02-28] MEDS: CITALOPRAM HYDROBROMIDE 10 MG TABLET PO SCH (10:54)
[2023-02-28] MEDS: RisperiDONE 1 MG TABLET PO SCH ×2 (10:54→20:58)
[2023-02-28] MEDS: ASCORBIC ACID 500 MG TABLET PO SCH (10:54)
[2023-02-28] MEDS: MENTHOL/ZINC OXIDE 113 GM OINTMENT TP SCH ×2 (10:55→21:14)
[2023-02-28] MEDS: PETROLATUM,WHITE 28 GM JELLY TP SCH (10:56)
[2023-02-28 15:53] VITALS: RESP 18
[2023-02-28 16:00] VITALS: BP 142/87; PULSE 79; RESP 17; TEMP 97
[2023-02-28 20:43] VITALS: BP 137/75; PULSE 85; RESP 18; TEMP 97.1
[2023-02-28] MEDS: MEMANTINE HCL 5 MG TABLET PO SCH (20:58)
[2023-02-28] MEDS: DONEPEZIL HCL 5 MG TABLET PO SCH (20:58)
[2023-03-01 00:19] VITALS: RESP 17
[2023-03-01 04:10] VITALS: RESP 18
[2023-03-01 08:30] VITALS: BP 142/85; PULSE 85; RESP 17; TEMP 97.8
[2023-03-01] MEDS: MENTHOL/ZINC OXIDE 113 GM OINTMENT TP SCH ×2 (09:07→20:37)
[2023-03-01] MEDS: PETROLATUM,WHITE 28 GM JELLY TP SCH (09:07)
[2023-03-01] MEDS: ASCORBIC ACID 500 MG TABLET PO SCH (09:07)
[2023-03-01] MEDS: CITALOPRAM HYDROBROMIDE 10 MG TABLET PO SCH (09:08)
[2023-03-01] MEDS: MULTIVITAMINS WITH MINERALS, THERAPEUTIC TABLET PO SCH (09:09)
[2023-03-01] MEDS: RisperiDONE 1 MG TABLET PO SCH ×2 (09:10→20:33)
[2023-03-01 12:30] VITALS: TEMP 97.4
[2023-03-01] MEDS: LOPERAMIDE HCL 2 MG CAPSULE PO PRN (14:40)
[2023-03-01 17:02] VITALS: BP 137/81; PULSE 93; RESP 17; TEMP 97.6
[2023-03-01] MEDS: DONEPEZIL HCL 5 MG TABLET PO SCH (20:33)
[2023-03-01] MEDS: MEMANTINE HCL 5 MG TABLET PO SCH (20:33)
[2023-03-01 21:19] VITALS: BP 133/81; PULSE 89; RESP 18; TEMP 98.1
[2023-03-02 00:38] VITALS: RESP 17
[2023-03-02 04:55] VITALS: RESP 18
[2023-03-02] MEDS: CITALOPRAM HYDROBROMIDE 10 MG TABLET PO SCH (08:12)
[2023-03-02] MEDS: RisperiDONE 1 MG TABLET PO SCH ×2 (08:12→20:34)
[2023-03-02] MEDS: MULTIVITAMINS WITH MINERALS, THERAPEUTIC TABLET PO SCH (08:12)
[2023-03-02] MEDS: ASCORBIC ACID 500 MG TABLET PO SCH (08:12)
[2023-03-02] MEDS: MENTHOL/ZINC OXIDE 113 GM OINTMENT TP SCH ×2 (08:13→20:42)
[2023-03-02] MEDS: PETROLATUM,WHITE 28 GM JELLY TP SCH (08:13)
[2023-03-02 10:27] VITALS: BP 156/87; PULSE 80; RESP 16; TEMP 97.2
[2023-03-02 12:22] VITALS: RESP 18; TEMP 97.6
[2023-03-02 16:03] VITALS: BP 149/87; PULSE 89; RESP 16; TEMP 97.1
[2023-03-02] MEDS: MEMANTINE HCL 5 MG TABLET PO SCH (20:34)
[2023-03-02] MEDS: DONEPEZIL HCL 5 MG TABLET PO SCH (20:34)
[2023-03-02 23:25] VITALS: BP 155/97; PULSE 82; RESP 18; TEMP 97.2
[2023-03-03] MEDS: RisperiDONE 1 MG TABLET PO SCH ×2 (08:27→21:17)
[2023-03-03] MEDS: ASCORBIC ACID 500 MG TABLET PO SCH (08:27)
[2023-03-03] MEDS: MULTIVITAMINS WITH MINERALS, THERAPEUTIC TABLET PO SCH (08:27)
[2023-03-03] MEDS: CITALOPRAM HYDROBROMIDE 10 MG TABLET PO SCH (08:27)
[2023-03-03] MEDS: PETROLATUM,WHITE 28 GM JELLY TP SCH (08:28)
[2023-03-03] MEDS: MENTHOL/ZINC OXIDE 113 GM OINTMENT TP SCH ×2 (08:28→21:16)
[2023-03-03 12:41] VITALS: BP 151/91; PULSE 82; RESP 18; TEMP 96.9
[2023-03-03 16:18] VITALS: BP 127/75; PULSE 91; RESP 23; TEMP 97.1
[2023-03-03 16:19] VITALS: BP 127/75; PULSE 91; RESP 18; TEMP 97.6
[2023-03-03] MEDS: MEMANTINE HCL 5 MG TABLET PO SCH (21:17)
[2023-03-03] MEDS: DONEPEZIL HCL 5 MG TABLET PO SCH (21:17)
[2023-03-03 23:20] VITALS: BP 147/93; PULSE 92; RESP 17; TEMP 97.2
[2023-03-04] MEDS: CITALOPRAM HYDROBROMIDE 10 MG TABLET PO SCH (08:52)
[2023-03-04] MEDS: MENTHOL/ZINC OXIDE 113 GM OINTMENT TP SCH ×2 (08:52→20:15)
[2023-03-04] MEDS: ASCORBIC ACID 500 MG TABLET PO SCH (08:53)
[2023-03-04] MEDS: MULTIVITAMINS WITH MINERALS, THERAPEUTIC TABLET PO SCH (08:53)
[2023-03-04] MEDS: PETROLATUM,WHITE 28 GM JELLY TP SCH (08:53)
[2023-03-04] MEDS: RisperiDONE 1 MG TABLET PO SCH ×2 (08:53→20:15)
[2023-03-04 09:35] VITALS: BP 97/67; PULSE 78; RESP 18; TEMP 97
[2023-03-04 14:22] VITALS: TEMP 97.5
[2023-03-04 16:56] VITALS: BP 155/90; PULSE 85; RESP 18; TEMP 97.5
[2023-03-04] MEDS: LORazepam 2 MG TABLET PO PRN (19:55)
[2023-03-04] MEDS: DONEPEZIL HCL 5 MG TABLET PO SCH (20:15)
[2023-03-04] MEDS: MEMANTINE HCL 5 MG TABLET PO SCH (20:15)
[2023-03-04] MEDS: ZOLPIDEM TARTRATE 10 MG TABLET PO PRN (22:07)
[2023-03-04] MEDS: LOPERAMIDE HCL 2 MG CAPSULE PO PRN (22:15)
[2023-03-04 22:50] VITALS: BP 133/81; PULSE 89; RESP 18; TEMP 97.2
[2023-03-05 00:25] VITALS: RESP 18
[2023-03-05 04:36] VITALS: RESP 18
[2023-03-05 07:50] LABS: COVID AG,FIA SOURCE NASAL SWAB
[2023-03-05 08:00] VITALS: BP 157/98; PULSE 78; RESP 18; TEMP 97.1
[2023-03-05] MEDS: CITALOPRAM HYDROBROMIDE 10 MG TABLET PO SCH (09:13)
[2023-03-05] MEDS: MULTIVITAMINS WITH MINERALS, THERAPEUTIC TABLET PO SCH (09:13)
[2023-03-05] MEDS: ASCORBIC ACID 500 MG TABLET PO SCH (09:13)
[2023-03-05] MEDS: ZINC SULFATE 220 MG CAPSULE PO SCH (09:14)
[2023-03-05] MEDS: PETROLATUM,WHITE 28 GM JELLY TP SCH (09:14)
[2023-03-05] MEDS: RisperiDONE 1 MG TABLET PO SCH ×2 (09:14→21:03)
[2023-03-05] MEDS: MENTHOL/ZINC OXIDE 113 GM OINTMENT TP SCH ×2 (09:14→20:45)
[2023-03-05 12:00] VITALS: RESP 16; TEMP 97.6
[2023-03-05 16:00] VITALS: BP 133/78; PULSE 90; RESP 18; TEMP 97
[2023-03-05] MEDS: DONEPEZIL HCL 5 MG TABLET PO SCH (21:03)
[2023-03-05] MEDS: MEMANTINE HCL 5 MG TABLET PO SCH (21:03)
[2023-03-05 21:59] VITALS: BP 154/87; PULSE 96; RESP 18; TEMP 97.9
[2023-03-06 05:42] VITALS: RESP 18
[2023-03-06 08:00] VITALS: BP 153/80; PULSE 94; RESP 17; TEMP 97.1
[2023-03-06] MEDS: CITALOPRAM HYDROBROMIDE 10 MG TABLET PO SCH (09:22)
[2023-03-06] MEDS: ZINC SULFATE 220 MG CAPSULE PO SCH (09:22)
[2023-03-06] MEDS: MENTHOL/ZINC OXIDE 113 GM OINTMENT TP SCH ×2 (09:23→21:05)
[2023-03-06] MEDS: PETROLATUM,WHITE 28 GM JELLY TP SCH (09:23)
[2023-03-06] MEDS: ASCORBIC ACID 500 MG TABLET PO SCH (09:23)
[2023-03-06] MEDS: RisperiDONE 1 MG TABLET PO SCH ×2 (09:24→20:56)
[2023-03-06] MEDS: MULTIVITAMINS WITH MINERALS, THERAPEUTIC TABLET PO SCH (09:24)
[2023-03-06 17:24] VITALS: BP 138/88; PULSE 87; RESP 18; TEMP 97.2
[2023-03-06] MEDS: DONEPEZIL HCL 5 MG TABLET PO SCH (20:56)
[2023-03-06] MEDS: MEMANTINE HCL 5 MG TABLET PO SCH (20:56)
[2023-03-06 21:49] VITALS: RESP 18
[2023-03-07 00:33] VITALS: RESP 18
[2023-03-07 05:14] VITALS: RESP 18
[2023-03-07] MEDS: MENTHOL/ZINC OXIDE 113 GM OINTMENT TP SCH ×2 (09:01→20:57)
[2023-03-07] MEDS: ZINC SULFATE 220 MG CAPSULE PO SCH (09:01)
[2023-03-07] MEDS: MULTIVITAMINS WITH MINERALS, THERAPEUTIC TABLET PO SCH (09:01)
[2023-03-07] MEDS: CITALOPRAM HYDROBROMIDE 10 MG TABLET PO SCH (09:01)
[2023-03-07] MEDS: RisperiDONE 1 MG TABLET PO SCH ×2 (09:02→20:56)
[2023-03-07] MEDS: ASCORBIC ACID 500 MG TABLET PO SCH (09:02)
[2023-03-07] MEDS: PETROLATUM,WHITE 28 GM JELLY TP SCH (09:02)
[2023-03-07 09:26] VITALS: BP 156/94; PULSE 85; RESP 18; TEMP 97.5
[2023-03-07 13:20] VITALS: TEMP 97.6
[2023-03-07 16:13] VITALS: BP 121/80; PULSE 78; RESP 17; TEMP 97.9
[2023-03-07 20:51] VITALS: BP 140/91; PULSE 88; RESP 18; TEMP 97.1
[2023-03-07] MEDS: DONEPEZIL HCL 5 MG TABLET PO SCH (20:56)
[2023-03-07] MEDS: MEMANTINE HCL 5 MG TABLET PO SCH (20:57)
[2023-03-08 00:06] VITALS: RESP 18
[2023-03-08] MEDS: ZINC SULFATE 220 MG CAPSULE PO SCH (09:22)
[2023-03-08] MEDS: MULTIVITAMINS WITH MINERALS, THERAPEUTIC TABLET PO SCH (09:22)
[2023-03-08] MEDS: ASCORBIC ACID 500 MG TABLET PO SCH (09:22)
[2023-03-08] MEDS: MENTHOL/ZINC OXIDE 113 GM OINTMENT TP SCH ×2 (09:23→20:49)
[2023-03-08] MEDS: CITALOPRAM HYDROBROMIDE 10 MG TABLET PO SCH (09:23)
[2023-03-08] MEDS: PETROLATUM,WHITE 28 GM JELLY TP SCH (09:23)
[2023-03-08] MEDS: RisperiDONE 1 MG TABLET PO SCH ×2 (09:23→20:50)
[2023-03-08 09:38] VITALS: BP 139/87; PULSE 84; RESP 18; TEMP 98.1
[2023-03-08 13:09] VITALS: TEMP 97
[2023-03-08 16:42] VITALS: BP 118/75; PULSE 92; RESP 18; TEMP 97.4
[2023-03-08] MEDS: DONEPEZIL HCL 5 MG TABLET PO SCH (20:50)
[2023-03-08] MEDS: MEMANTINE HCL 5 MG TABLET PO SCH (20:50)
[2023-03-08 21:52] VITALS: BP 136/85; PULSE 68; RESP 18; TEMP 97
[2023-03-09] MEDS: MENTHOL/ZINC OXIDE 113 GM OINTMENT TP SCH ×2 (08:17→21:07)
[2023-03-09] MEDS: RisperiDONE 1 MG TABLET PO SCH ×2 (08:18→21:07)
[2023-03-09] MEDS: ZINC SULFATE 220 MG CAPSULE PO SCH (08:18)
[2023-03-09] MEDS: ASCORBIC ACID 500 MG TABLET PO SCH (08:18)
[2023-03-09] MEDS: CITALOPRAM HYDROBROMIDE 10 MG TABLET PO SCH (08:18)
[2023-03-09] MEDS: MULTIVITAMINS WITH MINERALS, THERAPEUTIC TABLET PO SCH (08:18)
[2023-03-09] MEDS: PETROLATUM,WHITE 28 GM JELLY TP SCH (08:24)
[2023-03-09 09:28] VITALS: BP 142/87; PULSE 92; RESP 18; TEMP 97.1
[2023-03-09 12:08] VITALS: TEMP 97.2
[2023-03-09 17:50] VITALS: BP 118/74; PULSE 95; RESP 18; TEMP 98.1
[2023-03-09 20:05] VITALS: BP 117/71; PULSE 102; RESP 18; TEMP 97.9
[2023-03-09] MEDS: MEMANTINE HCL 5 MG TABLET PO SCH (21:07)
[2023-03-09] MEDS: DONEPEZIL HCL 5 MG TABLET PO SCH (21:07)
[2023-03-10 02:32] VITALS: RESP 17
[2023-03-10 04:41] VITALS: RESP 18
[2023-03-10] MEDS: CITALOPRAM HYDROBROMIDE 10 MG TABLET PO SCH (08:13)
[2023-03-10] MEDS: RisperiDONE 1 MG TABLET PO SCH ×2 (08:13→20:48)
[2023-03-10] MEDS: ZINC SULFATE 220 MG CAPSULE PO SCH (08:13)
[2023-03-10] MEDS: ASCORBIC ACID 500 MG TABLET PO SCH (08:13)
[2023-03-10] MEDS: MULTIVITAMINS WITH MINERALS, THERAPEUTIC TABLET PO SCH (08:13)
[2023-03-10] MEDS: MENTHOL/ZINC OXIDE 113 GM OINTMENT TP SCH ×2 (08:15→20:48)
[2023-03-10] MEDS: PETROLATUM,WHITE 28 GM JELLY TP SCH (08:15)
[2023-03-10 09:25] VITALS: BP 152/92; PULSE 94; RESP 19; TEMP 97.2
[2023-03-10 13:12] VITALS: TEMP 96.8
[2023-03-10] MEDS: MEMANTINE HCL 5 MG TABLET PO SCH (20:48)
[2023-03-10] MEDS: DONEPEZIL HCL 5 MG TABLET PO SCH (20:48)
[2023-03-10 22:53] VITALS: BP 139/84; PULSE 77; RESP 18; TEMP 97.4
[2023-03-11] MEDS: MENTHOL/ZINC OXIDE 113 GM OINTMENT TP SCH ×2 (08:36→21:00)
[2023-03-11] MEDS: ASCORBIC ACID 500 MG TABLET PO SCH (08:36)
[2023-03-11] MEDS: RisperiDONE 1 MG TABLET PO SCH ×2 (08:37→20:59)
[2023-03-11] MEDS: MULTIVITAMINS WITH MINERALS, THERAPEUTIC TABLET PO SCH (08:37)
[2023-03-11] MEDS: PETROLATUM,WHITE 28 GM JELLY TP SCH (08:38)
[2023-03-11] MEDS: ZINC SULFATE 220 MG CAPSULE PO SCH (08:38)
[2023-03-11] MEDS: CITALOPRAM HYDROBROMIDE 10 MG TABLET PO SCH (08:38)
[2023-03-11 09:29] VITALS: BP 131/86; PULSE 86; RESP 18; TEMP 97
[2023-03-11] MEDS: DONEPEZIL HCL 5 MG TABLET PO SCH (20:59)
[2023-03-11 21:12] VITALS: BP 122/74; PULSE 72; RESP 17; TEMP 97.8
[2023-03-11] MEDS: MEMANTINE HCL 5 MG TABLET PO SCH (22:07)
[2023-03-12] MEDS: ASCORBIC ACID 500 MG TABLET PO SCH (08:14)
[2023-03-12] MEDS: CITALOPRAM HYDROBROMIDE 10 MG TABLET PO SCH (08:14)
[2023-03-12] MEDS: MENTHOL/ZINC OXIDE 113 GM OINTMENT TP SCH ×2 (08:14→20:53)
[2023-03-12] MEDS: ZINC SULFATE 220 MG CAPSULE PO SCH (08:14)
[2023-03-12] MEDS: PETROLATUM,WHITE 28 GM JELLY TP SCH (08:15)
[2023-03-12] MEDS: MULTIVITAMINS WITH MINERALS, THERAPEUTIC TABLET PO SCH (08:16)
[2023-03-12] MEDS: RisperiDONE 1 MG TABLET PO SCH ×2 (08:16→20:54)
[2023-03-12 08:46] VITALS: BP 144/98; PULSE 92; RESP 18; TEMP 97.7
[2023-03-12] MEDS: DONEPEZIL HCL 5 MG TABLET PO SCH (20:54)
[2023-03-12] MEDS: MEMANTINE HCL 5 MG TABLET PO SCH (20:54)
[2023-03-12 21:02] VITALS: BP 124/78; PULSE 95; RESP 17; TEMP 97.8
[2023-03-13] MEDS: CITALOPRAM HYDROBROMIDE 10 MG TABLET PO SCH (08:16)
[2023-03-13] MEDS: RisperiDONE 1 MG TABLET PO SCH ×2 (08:16→20:29)
[2023-03-13] MEDS: ZINC SULFATE 220 MG CAPSULE PO SCH (08:16)
[2023-03-13] MEDS: MULTIVITAMINS WITH MINERALS, THERAPEUTIC TABLET PO SCH (08:16)
[2023-03-13] MEDS: ASCORBIC ACID 500 MG TABLET PO SCH (08:16)
[2023-03-13] MEDS: MENTHOL/ZINC OXIDE 113 GM OINTMENT TP SCH ×2 (08:17→20:00)
[2023-03-13] MEDS: PETROLATUM,WHITE 28 GM JELLY TP SCH (08:17)
[2023-03-13 09:59] VITALS: BP 141/78; PULSE 85; RESP 18; TEMP 97.5
[2023-03-13] MEDS: HALOPERIDOL 5 MG TABLET PO PRN ×2 (10:06→16:39)
[2023-03-13] MEDS: LORazepam 2 MG TABLET PO PRN (16:39)
[2023-03-13] MEDS: MEMANTINE HCL 5 MG TABLET PO SCH (20:29)
[2023-03-13] MEDS: DONEPEZIL HCL 5 MG TABLET PO SCH (20:29)
[2023-03-13 21:02] VITALS: BP 134/74; PULSE 82; RESP 17; TEMP 97.6
[2023-03-14 08:30] VITALS: BP 147/79; PULSE 97; RESP 18; TEMP 97.2
[2023-03-14] MEDS: CITALOPRAM HYDROBROMIDE 10 MG TABLET PO SCH (09:12)
[2023-03-14] MEDS: MENTHOL/ZINC OXIDE 113 GM OINTMENT TP SCH ×2 (09:12→20:21)
[2023-03-14] MEDS: ASCORBIC ACID 500 MG TABLET PO SCH (09:12)
[2023-03-14] MEDS: ZINC SULFATE 220 MG CAPSULE PO SCH (09:12)
[2023-03-14] MEDS: MULTIVITAMINS WITH MINERALS, THERAPEUTIC TABLET PO SCH (09:12)
[2023-03-14] MEDS: PETROLATUM,WHITE 28 GM JELLY TP SCH (09:13)
[2023-03-14] MEDS: RisperiDONE 2 MG TABLET PO SCH ×2 (09:13→20:21)
[2023-03-14] MEDS: MEMANTINE HCL 5 MG TABLET PO SCH (20:21)
[2023-03-14] MEDS: DONEPEZIL HCL 5 MG TABLET PO SCH (20:21)
[2023-03-14 22:32] VITALS: BP 124/71; PULSE 90; RESP 18; TEMP 97.3
[2023-03-15] MEDS: CITALOPRAM HYDROBROMIDE 10 MG TABLET PO SCH (08:05)
[2023-03-15] MEDS: MENTHOL/ZINC OXIDE 113 GM OINTMENT TP SCH ×2 (08:05→20:09)
[2023-03-15] MEDS: RisperiDONE 2 MG TABLET PO SCH ×2 (08:06→20:09)
[2023-03-15] MEDS: MULTIVITAMINS WITH MINERALS, THERAPEUTIC TABLET PO SCH (08:06)
[2023-03-15] MEDS: ASCORBIC ACID 500 MG TABLET PO SCH (08:06)
[2023-03-15] MEDS: PETROLATUM,WHITE 28 GM JELLY TP SCH (08:07)
[2023-03-15 08:55] VITALS: BP 157/94; PULSE 100; RESP 18; TEMP 97.6
[2023-03-15] MEDS: MEMANTINE HCL 5 MG TABLET PO SCH (20:09)
[2023-03-15] MEDS: DONEPEZIL HCL 5 MG TABLET PO SCH (20:09)
[2023-03-15 20:44] VITALS: BP 120/80; PULSE 90; RESP 19; TEMP 97.8
[2023-03-16] MEDS: RisperiDONE 2 MG TABLET PO SCH ×2 (08:32→20:48)
[2023-03-16] MEDS: ASCORBIC ACID 500 MG TABLET PO SCH (08:32)
[2023-03-16] MEDS: CITALOPRAM HYDROBROMIDE 10 MG TABLET PO SCH (08:32)
[2023-03-16] MEDS: MENTHOL/ZINC OXIDE 113 GM OINTMENT TP SCH ×2 (08:32→20:48)
[2023-03-16] MEDS: MULTIVITAMINS WITH MINERALS, THERAPEUTIC TABLET PO SCH (08:32)
[2023-03-16] MEDS: PETROLATUM,WHITE 28 GM JELLY TP SCH (08:33)
[2023-03-16 09:01] VITALS: BP 126/91; PULSE 92; RESP 18; TEMP 97.3
[2023-03-16] MEDS: MEMANTINE HCL 5 MG TABLET PO SCH (20:48)
[2023-03-16] MEDS: DONEPEZIL HCL 5 MG TABLET PO SCH (20:48)
[2023-03-16 21:43] VITALS: BP 126/72; PULSE 96; RESP 18; TEMP 98.2
[2023-03-17 08:20] VITALS: BP 152/94; PULSE 97; RESP 18; TEMP 98.1
[2023-03-17] MEDS: MENTHOL/ZINC OXIDE 113 GM OINTMENT TP SCH ×2 (08:26→20:28)
[2023-03-17] MEDS: MULTIVITAMINS WITH MINERALS, THERAPEUTIC TABLET PO SCH (08:27)
[2023-03-17] MEDS: ASCORBIC ACID 500 MG TABLET PO SCH (08:27)
[2023-03-17] MEDS: CITALOPRAM HYDROBROMIDE 10 MG TABLET PO SCH (08:27)
[2023-03-17] MEDS: RisperiDONE 2 MG TABLET PO SCH ×2 (08:27→20:28)
[2023-03-17] MEDS: PETROLATUM,WHITE 28 GM JELLY TP SCH (08:29)
[2023-03-17] MEDS: DONEPEZIL HCL 5 MG TABLET PO SCH (20:28)
[2023-03-17] MEDS: MEMANTINE HCL 5 MG TABLET PO SCH (20:28)
[2023-03-18] MEDS: MENTHOL/ZINC OXIDE 113 GM OINTMENT TP SCH ×2 (08:39→20:41)
[2023-03-18] MEDS: RisperiDONE 2 MG TABLET PO SCH ×2 (08:39→20:40)
[2023-03-18] MEDS: ASCORBIC ACID 500 MG TABLET PO SCH (08:39)
[2023-03-18] MEDS: CITALOPRAM HYDROBROMIDE 10 MG TABLET PO SCH (08:39)
[2023-03-18] MEDS: MULTIVITAMINS WITH MINERALS, THERAPEUTIC TABLET PO SCH (08:39)
[2023-03-18] MEDS: PETROLATUM,WHITE 28 GM JELLY TP SCH (08:40)
[2023-03-18 09:50] VITALS: BP 151/91; PULSE 89; RESP 17; TEMP 97.6
[2023-03-18] MEDS: MEMANTINE HCL 5 MG TABLET PO SCH (20:40)
[2023-03-18] MEDS: DONEPEZIL HCL 5 MG TABLET PO SCH (20:40)
[2023-03-18 21:14] VITALS: RESP 18
[2023-03-19] MEDS: MULTIVITAMINS WITH MINERALS, THERAPEUTIC TABLET PO SCH (08:42)
[2023-03-19] MEDS: MENTHOL/ZINC OXIDE 113 GM OINTMENT TP SCH ×2 (08:42→20:47)
[2023-03-19] MEDS: ASCORBIC ACID 500 MG TABLET PO SCH (08:42)
[2023-03-19] MEDS: RisperiDONE 2 MG TABLET PO SCH ×2 (08:42→22:26)
[2023-03-19] MEDS: CITALOPRAM HYDROBROMIDE 10 MG TABLET PO SCH (08:43)
[2023-03-19] MEDS: PETROLATUM,WHITE 28 GM JELLY TP SCH (08:43)
[2023-03-19 09:35] VITALS: BP 138/84; PULSE 87; RESP 18; TEMP 97.6
[2023-03-19 20:22] VITALS: BP 158/90; PULSE 104; RESP 20; TEMP 97.8
[2023-03-19] MEDS: MEMANTINE HCL 5 MG TABLET PO SCH (22:26)
[2023-03-19] MEDS: DONEPEZIL HCL 5 MG TABLET PO SCH (22:26)
[2023-03-20 08:46] VITALS: BP 134/89; PULSE 79; RESP 17; TEMP 98.1
[2023-03-20] MEDS: MULTIVITAMINS WITH MINERALS, THERAPEUTIC TABLET PO SCH (09:18)
[2023-03-20] MEDS: PETROLATUM,WHITE 28 GM JELLY TP SCH (09:19)
[2023-03-20] MEDS: CITALOPRAM HYDROBROMIDE 10 MG TABLET PO SCH (09:19)
[2023-03-20] MEDS: MENTHOL/ZINC OXIDE 113 GM OINTMENT TP SCH ×2 (09:20→20:48)
[2023-03-20] MEDS: ASCORBIC ACID 500 MG TABLET PO SCH (09:21)
[2023-03-20] MEDS: RisperiDONE 2 MG TABLET PO SCH ×2 (09:22→20:46)
[2023-03-20] MEDS: MEMANTINE HCL 5 MG TABLET PO SCH (20:46)
[2023-03-20] MEDS: DONEPEZIL HCL 5 MG TABLET PO SCH (20:46)
[2023-03-20 23:55] VITALS: BP 139/83; PULSE 90; RESP 18; TEMP 97.6
[2023-03-21] MEDS: RisperiDONE 2 MG TABLET PO SCH ×2 (08:38→20:06)
[2023-03-21] MEDS: CITALOPRAM HYDROBROMIDE 10 MG TABLET PO SCH (08:38)
[2023-03-21] MEDS: MULTIVITAMINS WITH MINERALS, THERAPEUTIC TABLET PO SCH (08:38)
[2023-03-21] MEDS: ASCORBIC ACID 500 MG TABLET PO SCH (08:39)
[2023-03-21] MEDS: PETROLATUM,WHITE 28 GM JELLY TP SCH (08:39)
[2023-03-21] MEDS: MENTHOL/ZINC OXIDE 113 GM OINTMENT TP SCH ×2 (08:39→20:05)
[2023-03-21 12:41] VITALS: BP 146/90; PULSE 87; RESP 18; TEMP 97
[2023-03-21] MEDS: DONEPEZIL HCL 5 MG TABLET PO SCH (20:05)
[2023-03-21] MEDS: MEMANTINE HCL 5 MG TABLET PO SCH (20:05)
[2023-03-21 22:14] VITALS: BP 130/77; PULSE 83; RESP 18; TEMP 97.4
[2023-03-22] MEDS: MENTHOL/ZINC OXIDE 113 GM OINTMENT TP SCH ×2 (08:19→20:06)
[2023-03-22] MEDS: MULTIVITAMINS WITH MINERALS, THERAPEUTIC TABLET PO SCH (08:19)
[2023-03-22] MEDS: ASCORBIC ACID 500 MG TABLET PO SCH (08:20)
[2023-03-22] MEDS: PETROLATUM,WHITE 28 GM JELLY TP SCH (08:20)
[2023-03-22] MEDS: RisperiDONE 2 MG TABLET PO SCH ×2 (08:20→20:06)
[2023-03-22] MEDS: CITALOPRAM HYDROBROMIDE 10 MG TABLET PO SCH (08:20)
[2023-03-22 12:06] VITALS: BP 162/95; PULSE 87; RESP 16; TEMP 98.8
[2023-03-22] MEDS: MEMANTINE HCL 5 MG TABLET PO SCH (20:06)
[2023-03-22] MEDS: DONEPEZIL HCL 5 MG TABLET PO SCH (20:06)
[2023-03-22 22:49] VITALS: RESP 18
[2023-03-23 09:14] VITALS: BP 128/94; PULSE 84; RESP 18; TEMP 97.3
[2023-03-23] MEDS: CITALOPRAM HYDROBROMIDE 10 MG TABLET PO SCH (10:46)
[2023-03-23] MEDS: ASCORBIC ACID 500 MG TABLET PO SCH (10:47)
[2023-03-23] MEDS: MULTIVITAMINS WITH MINERALS, THERAPEUTIC TABLET PO SCH (10:48)
[2023-03-23] MEDS: RisperiDONE 2 MG TABLET PO SCH ×2 (10:48→20:06)
[2023-03-23] MEDS: PETROLATUM,WHITE 28 GM JELLY TP SCH (10:49)
[2023-03-23] MEDS: MENTHOL/ZINC OXIDE 113 GM OINTMENT TP SCH ×2 (10:49→20:06)
[2023-03-23] MEDS: MEMANTINE HCL 5 MG TABLET PO SCH (20:06)
[2023-03-23] MEDS: DONEPEZIL HCL 5 MG TABLET PO SCH (20:06)
[2023-03-23 21:38] VITALS: BP 113/62; PULSE 87; RESP 17; TEMP 98.2
[2023-03-24 08:00] VITALS: BP 135/75; PULSE 75; RESP 17; TEMP 97.8
[2023-03-24] MEDS: ASCORBIC ACID 500 MG TABLET PO SCH (08:17)
[2023-03-24] MEDS: MULTIVITAMINS WITH MINERALS, THERAPEUTIC TABLET PO SCH (08:17)
[2023-03-24] MEDS: RisperiDONE 2 MG TABLET PO SCH ×2 (08:17→20:39)
[2023-03-24] MEDS: CITALOPRAM HYDROBROMIDE 10 MG TABLET PO SCH (08:17)
[2023-03-24] MEDS: MENTHOL/ZINC OXIDE 113 GM OINTMENT TP SCH ×2 (08:17→20:28)
[2023-03-24] MEDS: PETROLATUM,WHITE 28 GM JELLY TP SCH (08:17)
[2023-03-24] MEDS: DONEPEZIL HCL 5 MG TABLET PO SCH (20:39)
[2023-03-24] MEDS: MEMANTINE HCL 5 MG TABLET PO SCH (20:39)
[2023-03-24 21:00] VITALS: BP 140/84; PULSE 87; RESP 18; TEMP 97.7
[2023-03-25] MEDS: MULTIVITAMINS WITH MINERALS, THERAPEUTIC TABLET PO SCH (08:17)
[2023-03-25] MEDS: MENTHOL/ZINC OXIDE 113 GM OINTMENT TP SCH ×2 (08:17→21:25)
[2023-03-25] MEDS: ASCORBIC ACID 500 MG TABLET PO SCH (08:17)
[2023-03-25] MEDS: RisperiDONE 2 MG TABLET PO SCH ×2 (08:17→21:25)
[2023-03-25] MEDS: CITALOPRAM HYDROBROMIDE 10 MG TABLET PO SCH (08:17)
[2023-03-25] MEDS: PETROLATUM,WHITE 28 GM JELLY TP SCH (08:18)
[2023-03-25 08:26] VITALS: BP 154/88; PULSE 86; RESP 18; TEMP 97.8
[2023-03-25] MEDS: MUPIROCIN CALCIUM 2% 22 GM OINTMENT TP SCH (16:40)
[2023-03-25] MEDS: LORazepam 2 MG TABLET PO PRN (19:35)
[2023-03-25] MEDS: LOPERAMIDE HCL 2 MG CAPSULE PO PRN (21:25)
[2023-03-25] MEDS: DONEPEZIL HCL 5 MG TABLET PO SCH (21:25)
[2023-03-25] MEDS: MEMANTINE HCL 5 MG TABLET PO SCH (21:25)
[2023-03-25 21:36] VITALS: BP 129/77; PULSE 91; RESP 18; TEMP 97.8
[2023-03-26] MEDS: MENTHOL/ZINC OXIDE 113 GM OINTMENT TP SCH ×2 (08:20→20:35)
[2023-03-26] MEDS: CITALOPRAM HYDROBROMIDE 10 MG TABLET PO SCH (08:20)
[2023-03-26] MEDS: ASCORBIC ACID 500 MG TABLET PO SCH (08:21)
[2023-03-26] MEDS: MUPIROCIN CALCIUM 2% 22 GM OINTMENT TP SCH ×2 (08:21→16:01)
[2023-03-26] MEDS: RisperiDONE 2 MG TABLET PO SCH ×2 (08:22→20:36)
[2023-03-26] MEDS: MULTIVITAMINS WITH MINERALS, THERAPEUTIC TABLET PO SCH (08:22)
[2023-03-26] MEDS: PETROLATUM,WHITE 28 GM JELLY TP SCH (08:23)
[2023-03-26 09:00] VITALS: BP 135/100; PULSE 87; RESP 18; TEMP 97.9
[2023-03-26 20:30] VITALS: RESP 18
[2023-03-26] MEDS: DONEPEZIL HCL 5 MG TABLET PO SCH (20:36)
[2023-03-26] MEDS: MEMANTINE HCL 5 MG TABLET PO SCH (20:36)
[2023-03-27] MEDS: MUPIROCIN CALCIUM 2% 22 GM OINTMENT TP SCH ×2 (08:05→18:14)
[2023-03-27] MEDS: MENTHOL/ZINC OXIDE 113 GM OINTMENT TP SCH ×2 (08:05→20:05)
[2023-03-27] MEDS: CITALOPRAM HYDROBROMIDE 10 MG TABLET PO SCH (08:06)
[2023-03-27] MEDS: RisperiDONE 2 MG TABLET PO SCH ×2 (08:06→20:05)
[2023-03-27] MEDS: ASCORBIC ACID 500 MG TABLET PO SCH (08:06)
[2023-03-27] MEDS: PETROLATUM,WHITE 28 GM JELLY TP SCH (08:06)
[2023-03-27] MEDS: MULTIVITAMINS WITH MINERALS, THERAPEUTIC TABLET PO SCH (08:06)
[2023-03-27 09:06] VITALS: BP 141/89; PULSE 90; RESP 19; TEMP 98
[2023-03-27] MEDS: MEMANTINE HCL 5 MG TABLET PO SCH (20:05)
[2023-03-27] MEDS: DONEPEZIL HCL 5 MG TABLET PO SCH (20:05)
[2023-03-27] MEDS: LOPERAMIDE HCL 2 MG CAPSULE PO PRN (20:05)
[2023-03-27] MEDS: LORazepam 2 MG TABLET PO PRN (22:02)
[2023-03-27 22:55] VITALS: BP 143/90; PULSE 89; RESP 17; TEMP 98
[2023-03-28] MEDS: RisperiDONE 2 MG TABLET PO SCH ×2 (09:18→21:15)
[2023-03-28] MEDS: MUPIROCIN CALCIUM 2% 22 GM OINTMENT TP SCH ×2 (09:18→16:12)
[2023-03-28] MEDS: MENTHOL/ZINC OXIDE 113 GM OINTMENT TP SCH ×2 (09:18→21:15)
[2023-03-28] MEDS: CITALOPRAM HYDROBROMIDE 10 MG TABLET PO SCH (09:18)
[2023-03-28] MEDS: PETROLATUM,WHITE 28 GM JELLY TP SCH (09:18)
[2023-03-28] MEDS: MULTIVITAMINS WITH MINERALS, THERAPEUTIC TABLET PO SCH (09:18)
[2023-03-28] MEDS: ASCORBIC ACID 500 MG TABLET PO SCH (09:19)
[2023-03-28 11:00] VITALS: BP 132/85; PULSE 100; RESP 18; TEMP 97.1
[2023-03-28] MEDS: DONEPEZIL HCL 5 MG TABLET PO SCH (21:15)
[2023-03-28] MEDS: MEMANTINE HCL 5 MG TABLET PO SCH (21:15)
[2023-03-28 21:56] VITALS: RESP 17; TEMP 97.8
[2023-03-29] MEDS: CITALOPRAM HYDROBROMIDE 10 MG TABLET PO SCH (08:34)
[2023-03-29] MEDS: ASCORBIC ACID 500 MG TABLET PO SCH (08:34)
[2023-03-29] MEDS: RisperiDONE 2 MG TABLET PO SCH ×2 (08:34→21:07)
[2023-03-29] MEDS: MUPIROCIN CALCIUM 2% 22 GM OINTMENT TP SCH ×2 (08:35→16:20)
[2023-03-29] MEDS: MENTHOL/ZINC OXIDE 113 GM OINTMENT TP SCH ×2 (08:35→21:07)
[2023-03-29] MEDS: MULTIVITAMINS WITH MINERALS, THERAPEUTIC TABLET PO SCH (08:35)
[2023-03-29] MEDS: PETROLATUM,WHITE 28 GM JELLY TP SCH (08:35)
[2023-03-29 10:19] VITALS: BP 145/91; PULSE 81; RESP 18; TEMP 97.8
[2023-03-29] MEDS: MEMANTINE HCL 5 MG TABLET PO SCH (21:07)
[2023-03-29] MEDS: DONEPEZIL HCL 5 MG TABLET PO SCH (21:07)
[2023-03-29 22:11] VITALS: BP 136/86; PULSE 92; RESP 18; TEMP 97.1
[2023-03-30 08:00] VITALS: BP 129/81; PULSE 85; RESP 18; TEMP 96.7
[2023-03-30] MEDS: RisperiDONE 2 MG TABLET PO SCH ×2 (09:24→20:17)
[2023-03-30] MEDS: MULTIVITAMINS WITH MINERALS, THERAPEUTIC TABLET PO SCH (09:24)
[2023-03-30] MEDS: ASCORBIC ACID 500 MG TABLET PO SCH (09:25)
[2023-03-30] MEDS: CITALOPRAM HYDROBROMIDE 10 MG TABLET PO SCH (09:25)
[2023-03-30] MEDS: PETROLATUM,WHITE 28 GM JELLY TP SCH (09:51)
[2023-03-30] MEDS: MUPIROCIN CALCIUM 2% 22 GM OINTMENT TP SCH (09:51)
[2023-03-30] MEDS: MENTHOL/ZINC OXIDE 113 GM OINTMENT TP SCH ×2 (09:51→20:17)
[2023-03-30] MEDS: MEMANTINE HCL 5 MG TABLET PO SCH (20:17)
[2023-03-30] MEDS: DONEPEZIL HCL 5 MG TABLET PO SCH (20:17)
[2023-03-30 22:13] VITALS: BP 107/64; PULSE 80; RESP 17; TEMP 97.3
[2023-03-31] MEDS: CITALOPRAM HYDROBROMIDE 10 MG TABLET PO SCH (09:15)
[2023-03-31] MEDS: ASCORBIC ACID 500 MG TABLET PO SCH (09:15)
[2023-03-31] MEDS: MULTIVITAMINS WITH MINERALS, THERAPEUTIC TABLET PO SCH (09:15)
[2023-03-31] MEDS: PETROLATUM,WHITE 28 GM JELLY TP SCH (09:15)
[2023-03-31] MEDS: RisperiDONE 2 MG TABLET PO SCH ×2 (09:15→20:17)
[2023-03-31] MEDS: MENTHOL/ZINC OXIDE 113 GM OINTMENT TP SCH ×2 (09:17→20:20)
[2023-03-31 09:39] VITALS: BP 151/91; PULSE 85; RESP 18; TEMP 96.8
[2023-03-31] MEDS: DONEPEZIL HCL 5 MG TABLET PO SCH (20:17)
[2023-03-31] MEDS: MEMANTINE HCL 5 MG TABLET PO SCH (20:17)
[2023-03-31 21:27] VITALS: BP 123/77; PULSE 92; RESP 18; TEMP 97.3
[2023-04-01 07:33] LABS: ALBUMIN 3.1 g/dL (3.4-5.0); BILIRUBIN,TOTAL 0.3 mg/dL (0.1-1.0); CALCIUM, TOTAL 9.2 mg/dL (8.8-10.5); CREATININE 1.52 mg/dL (0.60-1.30); TOTAL PROTEIN, SERUM 9.1 g/dL (6.4-8.2)
[2023-04-01 07:56] LABS: POTASSIUM 6.5 mmol/L (3.5-5.1)
[2023-04-01] MEDS: ASCORBIC ACID 500 MG TABLET PO SCH (08:06)
[2023-04-01] MEDS: PETROLATUM,WHITE 28 GM JELLY TP SCH (08:06)
[2023-04-01] MEDS: MENTHOL/ZINC OXIDE 113 GM OINTMENT TP SCH ×2 (08:06→20:42)
[2023-04-01] MEDS: MULTIVITAMINS WITH MINERALS, THERAPEUTIC TABLET PO SCH (08:06)
[2023-04-01] MEDS: CITALOPRAM HYDROBROMIDE 10 MG TABLET PO SCH (08:06)
[2023-04-01] MEDS: RisperiDONE 2 MG TABLET PO SCH ×2 (08:06→20:42)
[2023-04-01] MEDS ORDERED: SODIUM POLYSTYRENE SULFONATE 15 GM/60 ML SUSPENSION BOTTLE PO ONE (08:15)
[2023-04-01 09:44] VITALS: BP 126/82; PULSE 83; RESP 19; TEMP 96.7
[2023-04-01] MEDS: MEMANTINE HCL 5 MG TABLET PO SCH (20:42)
[2023-04-01] MEDS: DONEPEZIL HCL 5 MG TABLET PO SCH (20:42)
[2023-04-01 20:47] VITALS: BP 116/73; PULSE 91; RESP 17; TEMP 97.6
[2023-04-02] MEDS: RisperiDONE 2 MG TABLET PO SCH ×2 (08:19→20:37)
[2023-04-02] MEDS: MULTIVITAMINS WITH MINERALS, THERAPEUTIC TABLET PO SCH (08:19)
[2023-04-02] MEDS: ASCORBIC ACID 500 MG TABLET PO SCH (08:19)
[2023-04-02] MEDS: CITALOPRAM HYDROBROMIDE 10 MG TABLET PO SCH (08:19)
[2023-04-02] MEDS: PETROLATUM,WHITE 28 GM JELLY TP SCH (08:20)
[2023-04-02] MEDS: MENTHOL/ZINC OXIDE 113 GM OINTMENT TP SCH ×2 (08:20→20:41)
[2023-04-02 09:11] VITALS: BP 142/91; PULSE 84; RESP 19; TEMP 97.7
[2023-04-02] MEDS ORDERED: SODIUM POLYSTYRENE SULFONATE 15 GM/60 ML SUSPENSION BOTTLE PO ONE (13:45)
[2023-04-02] MEDS: LOPERAMIDE HCL 2 MG CAPSULE PO PRN (20:37)
[2023-04-02] MEDS: LORazepam 2 MG TABLET PO PRN (20:37)
[2023-04-02] MEDS: MEMANTINE HCL 5 MG TABLET PO SCH (20:37)
[2023-04-02] MEDS: DONEPEZIL HCL 5 MG TABLET PO SCH (20:37)
[2023-04-02 21:08] VITALS: BP 135/69; PULSE 88; RESP 18; TEMP 97.8
[2023-04-03 08:00] VITALS: BP 138/84; PULSE 81; RESP 18; TEMP 96.2
[2023-04-03] MEDS: MENTHOL/ZINC OXIDE 113 GM OINTMENT TP SCH ×2 (08:07→20:50)
[2023-04-03] MEDS: CITALOPRAM HYDROBROMIDE 10 MG TABLET PO SCH (08:07)
[2023-04-03] MEDS: ASCORBIC ACID 500 MG TABLET PO SCH (08:08)
[2023-04-03] MEDS: RisperiDONE 2 MG TABLET PO SCH ×2 (08:09→20:50)
[2023-04-03] MEDS: MULTIVITAMINS WITH MINERALS, THERAPEUTIC TABLET PO SCH (08:09)
[2023-04-03 08:59] LABS: CREATININE 1.52 mg/dL (0.60-1.30); POTASSIUM 5.1 mmol/L (3.5-5.1)
[2023-04-03] MEDS: PETROLATUM,WHITE 28 GM JELLY TP SCH (10:58)
[2023-04-03 20:34] VITALS: BP 128/73; PULSE 80; RESP 18; TEMP 97.1
[2023-04-03] MEDS: DONEPEZIL HCL 5 MG TABLET PO SCH (20:50)
[2023-04-03] MEDS: MEMANTINE HCL 5 MG TABLET PO SCH (20:50)
[2023-04-04 09:24] VITALS: BP 143/93; PULSE 92; RESP 17; TEMP 97.7
[2023-04-04] MEDS: MULTIVITAMINS WITH MINERALS, THERAPEUTIC TABLET PO SCH (09:30)
[2023-04-04] MEDS: RisperiDONE 2 MG TABLET PO SCH ×2 (09:30→20:42)
[2023-04-04] MEDS: ASCORBIC ACID 500 MG TABLET PO SCH (09:31)
[2023-04-04] MEDS: CITALOPRAM HYDROBROMIDE 10 MG TABLET PO SCH (09:31)
[2023-04-04] MEDS: MENTHOL/ZINC OXIDE 113 GM OINTMENT TP SCH ×2 (09:32→20:42)
[2023-04-04] MEDS: PETROLATUM,WHITE 28 GM JELLY TP SCH (09:32)
[2023-04-04] MEDS: MEMANTINE HCL 5 MG TABLET PO SCH (20:42)
[2023-04-04] MEDS: DONEPEZIL HCL 5 MG TABLET PO SCH (20:42)
[2023-04-04 21:36] VITALS: BP 148/84; PULSE 87; RESP 18; TEMP 97.2
[2023-04-05 08:05] VITALS: BP 145/94; PULSE 78; RESP 17; TEMP 97.7
[2023-04-05] MEDS: MENTHOL/ZINC OXIDE 113 GM OINTMENT TP SCH ×2 (08:34→20:21)
[2023-04-05] MEDS: ASCORBIC ACID 500 MG TABLET PO SCH (08:34)
[2023-04-05] MEDS: MULTIVITAMINS WITH MINERALS, THERAPEUTIC TABLET PO SCH (08:34)
[2023-04-05] MEDS: PETROLATUM,WHITE 28 GM JELLY TP SCH (08:34)
[2023-04-05] MEDS: CITALOPRAM HYDROBROMIDE 10 MG TABLET PO SCH (08:34)
[2023-04-05] MEDS: RisperiDONE 2 MG TABLET PO SCH ×2 (08:34→20:20)
[2023-04-05] MEDS: MUPIROCIN CALCIUM 2% 22 GM OINTMENT NASAL SCH (16:09)
[2023-04-05] MEDS: MEMANTINE HCL 5 MG TABLET PO SCH (20:20)
[2023-04-05] MEDS: DONEPEZIL HCL 5 MG TABLET PO SCH (20:20)
[2023-04-05 21:48] VITALS: BP 130/86; PULSE 85; RESP 18; TEMP 97.2
[2023-04-06] MEDS: MULTIVITAMINS WITH MINERALS, THERAPEUTIC TABLET PO SCH (08:01)
[2023-04-06] MEDS: CITALOPRAM HYDROBROMIDE 10 MG TABLET PO SCH (08:01)
[2023-04-06] MEDS: MENTHOL/ZINC OXIDE 113 GM OINTMENT TP SCH ×2 (08:01→21:00)
[2023-04-06] MEDS: MUPIROCIN CALCIUM 2% 22 GM OINTMENT NASAL SCH ×2 (08:01→16:42)
[2023-04-06] MEDS: ASCORBIC ACID 500 MG TABLET PO SCH (08:01)
[2023-04-06] MEDS: RisperiDONE 2 MG TABLET PO SCH ×2 (08:01→21:00)
[2023-04-06] MEDS: PETROLATUM,WHITE 28 GM JELLY TP SCH (08:02)
[2023-04-06 10:17] VITALS: BP 140/92; PULSE 88; RESP 17; TEMP 96.7
[2023-04-06] MEDS: MEMANTINE HCL 5 MG TABLET PO SCH (21:00)
[2023-04-06] MEDS: DONEPEZIL HCL 5 MG TABLET PO SCH (21:00)
[2023-04-06 21:44] VITALS: RESP 18
[2023-04-07] MEDS: RisperiDONE 2 MG TABLET PO SCH ×2 (08:40→21:09)
[2023-04-07] MEDS: MULTIVITAMINS WITH MINERALS, THERAPEUTIC TABLET PO SCH (08:40)
[2023-04-07] MEDS: CITALOPRAM HYDROBROMIDE 10 MG TABLET PO SCH (08:40)
[2023-04-07] MEDS: MENTHOL/ZINC OXIDE 113 GM OINTMENT TP SCH ×2 (08:40→21:09)
[2023-04-07] MEDS: ASCORBIC ACID 500 MG TABLET PO SCH (08:40)
[2023-04-07] MEDS: MUPIROCIN CALCIUM 2% 22 GM OINTMENT NASAL SCH ×2 (08:41→17:17)
[2023-04-07] MEDS: PETROLATUM,WHITE 28 GM JELLY TP SCH (08:43)
[2023-04-07 09:39] VITALS: BP 156/99; PULSE 88; RESP 19; TEMP 97.3
[2023-04-07] MEDS: MEMANTINE HCL 5 MG TABLET PO SCH (21:09)
[2023-04-07] MEDS: DONEPEZIL HCL 5 MG TABLET PO SCH (21:10)
[2023-04-07] MEDS: ZOLPIDEM TARTRATE 10 MG TABLET PO PRN (21:10)
[2023-04-07 22:58] VITALS: BP 136/90; PULSE 85; RESP 18; TEMP 97.9
[2023-04-08] MEDS: MULTIVITAMINS WITH MINERALS, THERAPEUTIC TABLET PO SCH (09:16)
[2023-04-08] MEDS: ASCORBIC ACID 500 MG TABLET PO SCH (09:17)
[2023-04-08] MEDS: CITALOPRAM HYDROBROMIDE 10 MG TABLET PO SCH (09:17)
[2023-04-08] MEDS: PETROLATUM,WHITE 28 GM JELLY TP SCH (09:17)
[2023-04-08] MEDS: MUPIROCIN CALCIUM 2% 22 GM OINTMENT NASAL SCH ×2 (09:17→16:06)
[2023-04-08] MEDS: RisperiDONE 2 MG TABLET PO SCH ×2 (09:18→20:49)
[2023-04-08] MEDS: MENTHOL/ZINC OXIDE 113 GM OINTMENT TP SCH ×2 (09:31→20:48)
[2023-04-08 10:02] VITALS: BP 152/90; PULSE 84; RESP 18; TEMP 96.8
[2023-04-08] MEDS: ZOLPIDEM TARTRATE 10 MG TABLET PO PRN (20:49)
[2023-04-08] MEDS: DONEPEZIL HCL 5 MG TABLET PO SCH (20:49)
[2023-04-08] MEDS: MEMANTINE HCL 5 MG TABLET PO SCH (20:49)
[2023-04-08 21:44] VITALS: RESP 17
[2023-04-09] MEDS: RisperiDONE 2 MG TABLET PO SCH ×2 (09:15→21:11)
[2023-04-09] MEDS: MUPIROCIN CALCIUM 2% 22 GM OINTMENT NASAL SCH ×2 (09:15→17:06)
[2023-04-09] MEDS: MENTHOL/ZINC OXIDE 113 GM OINTMENT TP SCH ×2 (09:15→21:09)
[2023-04-09] MEDS: ASCORBIC ACID 500 MG TABLET PO SCH (09:15)
[2023-04-09] MEDS: CITALOPRAM HYDROBROMIDE 10 MG TABLET PO SCH (09:15)
[2023-04-09] MEDS: MULTIVITAMINS WITH MINERALS, THERAPEUTIC TABLET PO SCH (09:15)
[2023-04-09] MEDS: PETROLATUM,WHITE 28 GM JELLY TP SCH (09:16)
[2023-04-09 09:22] VITALS: BP 160/99; PULSE 93; RESP 18; TEMP 97
[2023-04-09] MEDS: DONEPEZIL HCL 5 MG TABLET PO SCH (21:10)
[2023-04-09] MEDS: MEMANTINE HCL 5 MG TABLET PO SCH (21:10)
[2023-04-09] MEDS: ZOLPIDEM TARTRATE 10 MG TABLET PO PRN (21:11)
[2023-04-10 00:45] VITALS: BP 138/73; PULSE 89; RESP 18; TEMP 98
[2023-04-10 08:08] VITALS: BP 138/94; PULSE 87; RESP 17; TEMP 97.4
[2023-04-10] MEDS: RisperiDONE 2 MG TABLET PO SCH ×2 (08:45→21:20)
[2023-04-10] MEDS: MULTIVITAMINS WITH MINERALS, THERAPEUTIC TABLET PO SCH (08:45)
[2023-04-10] MEDS: CITALOPRAM HYDROBROMIDE 10 MG TABLET PO SCH (08:46)
[2023-04-10] MEDS: MENTHOL/ZINC OXIDE 113 GM OINTMENT TP SCH ×2 (08:46→21:19)
[2023-04-10] MEDS: PETROLATUM,WHITE 28 GM JELLY TP SCH (08:46)
[2023-04-10] MEDS: MUPIROCIN CALCIUM 2% 22 GM OINTMENT NASAL SCH (08:46)
[2023-04-10] MEDS: ASCORBIC ACID 500 MG TABLET PO SCH (08:46)
[2023-04-10 20:48] VITALS: BP 135/78; PULSE 89; RESP 18; TEMP 97.7
[2023-04-10] MEDS: MEMANTINE HCL 5 MG TABLET PO SCH (21:19)
[2023-04-10] MEDS: ZOLPIDEM TARTRATE 10 MG TABLET PO PRN (21:20)
[2023-04-10] MEDS: DONEPEZIL HCL 5 MG TABLET PO SCH (21:20)
[2023-04-11] MEDS: CITALOPRAM HYDROBROMIDE 10 MG TABLET PO SCH (08:38)
[2023-04-11] MEDS: ASCORBIC ACID 500 MG TABLET PO SCH (08:38)
[2023-04-11] MEDS: MULTIVITAMINS WITH MINERALS, THERAPEUTIC TABLET PO SCH (08:38)
[2023-04-11] MEDS: RisperiDONE 2 MG TABLET PO SCH ×2 (08:38→20:36)
[2023-04-11] MEDS: PETROLATUM,WHITE 28 GM JELLY TP SCH (08:38)
[2023-04-11] MEDS: MENTHOL/ZINC OXIDE 113 GM OINTMENT TP SCH ×2 (08:38→20:35)
[2023-04-11 10:10] VITALS: BP 145/86; PULSE 88; TEMP 97.3
[2023-04-11] MEDS: DONEPEZIL HCL 5 MG TABLET PO SCH (20:36)
[2023-04-11] MEDS: MEMANTINE HCL 5 MG TABLET PO SCH (20:36)
[2023-04-11 20:40] VITALS: BP 116/73; PULSE 84; RESP 18; TEMP 97.5
[2023-04-12] MEDS: MULTIVITAMINS WITH MINERALS, THERAPEUTIC TABLET PO SCH (08:39)
[2023-04-12] MEDS: PETROLATUM,WHITE 28 GM JELLY TP SCH (08:39)
[2023-04-12] MEDS: RisperiDONE 2 MG TABLET PO SCH ×2 (08:40→20:21)
[2023-04-12] MEDS: MENTHOL/ZINC OXIDE 113 GM OINTMENT TP SCH ×2 (08:40→20:22)
[2023-04-12] MEDS: CITALOPRAM HYDROBROMIDE 10 MG TABLET PO SCH (08:40)
[2023-04-12] MEDS: ASCORBIC ACID 500 MG TABLET PO SCH (08:40)
[2023-04-12 09:10] VITALS: BP 147/92; PULSE 79; RESP 18; TEMP 97.3
[2023-04-12] MEDS: MEMANTINE HCL 5 MG TABLET PO SCH (20:21)
[2023-04-12] MEDS: DONEPEZIL HCL 5 MG TABLET PO SCH (20:21)
[2023-04-12 20:39] VITALS: BP 138/73; PULSE 88; RESP 18; TEMP 97.3
[2023-04-13] MEDS: CITALOPRAM HYDROBROMIDE 10 MG TABLET PO SCH (08:49)
[2023-04-13] MEDS: ASCORBIC ACID 500 MG TABLET PO SCH (08:49)
[2023-04-13] MEDS: PETROLATUM,WHITE 28 GM JELLY TP SCH (08:49)
[2023-04-13] MEDS: RisperiDONE 2 MG TABLET PO SCH ×2 (08:49→21:37)
[2023-04-13] MEDS: MULTIVITAMINS WITH MINERALS, THERAPEUTIC TABLET PO SCH (08:49)
[2023-04-13] MEDS: MENTHOL/ZINC OXIDE 113 GM OINTMENT TP SCH ×2 (08:50→21:37)
[2023-04-13 10:24] VITALS: BP 131/83; PULSE 84; RESP 19; TEMP 97.4
[2023-04-13 20:38] VITALS: BP 115/71; PULSE 85; RESP 19; TEMP 97.9
[2023-04-13] MEDS: DONEPEZIL HCL 5 MG TABLET PO SCH (21:37)
[2023-04-13] MEDS: MEMANTINE HCL 5 MG TABLET PO SCH (21:37)
[2023-04-14] MEDS: MENTHOL/ZINC OXIDE 113 GM OINTMENT TP SCH ×2 (08:20→20:44)
[2023-04-14] MEDS: RisperiDONE 2 MG TABLET PO SCH ×2 (08:20→20:44)
[2023-04-14] MEDS: PETROLATUM,WHITE 28 GM JELLY TP SCH (08:20)
[2023-04-14] MEDS: CITALOPRAM HYDROBROMIDE 10 MG TABLET PO SCH (08:20)
[2023-04-14] MEDS: ASCORBIC ACID 500 MG TABLET PO SCH (08:20)
[2023-04-14] MEDS: MULTIVITAMINS WITH MINERALS, THERAPEUTIC TABLET PO SCH (08:20)
[2023-04-14 08:54] VITALS: BP 129/83; PULSE 75; RESP 17; TEMP 97.3
[2023-04-14] MEDS: ZOLPIDEM TARTRATE 10 MG TABLET PO PRN (20:45)
[2023-04-14] MEDS: MEMANTINE HCL 5 MG TABLET PO SCH (20:45)
[2023-04-14] MEDS: DONEPEZIL HCL 5 MG TABLET PO SCH (20:45)
[2023-04-14 20:53] VITALS: BP 126/78; PULSE 80; RESP 19; TEMP 97.8
[2023-04-15] MEDS: CITALOPRAM HYDROBROMIDE 10 MG TABLET PO SCH (08:40)
[2023-04-15] MEDS: ASCORBIC ACID 500 MG TABLET PO SCH (08:40)
[2023-04-15] MEDS: RisperiDONE 2 MG TABLET PO SCH ×2 (08:41→21:05)
[2023-04-15] MEDS: MULTIVITAMINS WITH MINERALS, THERAPEUTIC TABLET PO SCH (08:41)
[2023-04-15] MEDS: MENTHOL/ZINC OXIDE 113 GM OINTMENT TP SCH ×2 (08:41→21:04)
[2023-04-15] MEDS: PETROLATUM,WHITE 28 GM JELLY TP SCH (08:42)
[2023-04-15 09:31] VITALS: BP 151/103; PULSE 78; RESP 18; TEMP 98.1
[2023-04-15] MEDS: MUPIROCIN CALCIUM 2% 22 GM OINTMENT NASAL SCH (17:31)
[2023-04-15 20:32] VITALS: BP 134/75; PULSE 92; RESP 19; TEMP 97.4
[2023-04-15] MEDS: MEMANTINE HCL 5 MG TABLET PO SCH (21:05)
[2023-04-15] MEDS: ZOLPIDEM TARTRATE 10 MG TABLET PO PRN (21:05)
[2023-04-15] MEDS: DONEPEZIL HCL 5 MG TABLET PO SCH (21:05)
[2023-04-16 09:09] VITALS: BP 148/93; PULSE 81; RESP 18; TEMP 97.5
[2023-04-16] MEDS: MUPIROCIN CALCIUM 2% 22 GM OINTMENT NASAL SCH ×2 (09:12→16:33)
[2023-04-16] MEDS: MULTIVITAMINS WITH MINERALS, THERAPEUTIC TABLET PO SCH (09:13)
[2023-04-16] MEDS: ASCORBIC ACID 500 MG TABLET PO SCH (09:13)
[2023-04-16] MEDS: CITALOPRAM HYDROBROMIDE 10 MG TABLET PO SCH (09:13)
[2023-04-16] MEDS: PETROLATUM,WHITE 28 GM JELLY TP SCH (09:13)
[2023-04-16] MEDS: MENTHOL/ZINC OXIDE 113 GM OINTMENT TP SCH ×2 (09:13→20:15)
[2023-04-16] MEDS: RisperiDONE 2 MG TABLET PO SCH ×2 (09:13→20:14)
[2023-04-16] MEDS: MEMANTINE HCL 5 MG TABLET PO SCH (20:14)
[2023-04-16] MEDS: DONEPEZIL HCL 5 MG TABLET PO SCH (20:14)
[2023-04-16 20:59] VITALS: BP 118/71; PULSE 92; RESP 18; TEMP 97.1
[2023-04-17 08:40] VITALS: BP 160/103; PULSE 81; RESP 18; TEMP 97.1
[2023-04-17] MEDS: MENTHOL/ZINC OXIDE 113 GM OINTMENT TP SCH ×2 (08:43→21:25)
[2023-04-17] MEDS: MUPIROCIN CALCIUM 2% 22 GM OINTMENT NASAL SCH ×2 (08:45→16:37)
[2023-04-17] MEDS: CITALOPRAM HYDROBROMIDE 10 MG TABLET PO SCH (08:45)
[2023-04-17] MEDS: RisperiDONE 2 MG TABLET PO SCH ×2 (08:45→21:25)
[2023-04-17] MEDS: MULTIVITAMINS WITH MINERALS, THERAPEUTIC TABLET PO SCH (08:45)
[2023-04-17] MEDS: PETROLATUM,WHITE 28 GM JELLY TP SCH (08:46)
[2023-04-17] MEDS: ASCORBIC ACID 500 MG TABLET PO SCH (08:47)
[2023-04-17 20:17] VITALS: BP 134/76; PULSE 92; RESP 18; TEMP 98.1
[2023-04-17] MEDS: MEMANTINE HCL 5 MG TABLET PO SCH (21:25)
[2023-04-17] MEDS: DONEPEZIL HCL 5 MG TABLET PO SCH (21:25)
[2023-04-18 09:27] VITALS: BP 152/94; PULSE 81; RESP 18; TEMP 98
[2023-04-18] MEDS: ASCORBIC ACID 500 MG TABLET PO SCH (09:34)
[2023-04-18] MEDS: CITALOPRAM HYDROBROMIDE 10 MG TABLET PO SCH (09:34)
[2023-04-18] MEDS: RisperiDONE 2 MG TABLET PO SCH ×2 (09:34→20:28)
[2023-04-18] MEDS: MULTIVITAMINS WITH MINERALS, THERAPEUTIC TABLET PO SCH (09:34)
[2023-04-18] MEDS: PETROLATUM,WHITE 28 GM JELLY TP SCH (09:34)
[2023-04-18] MEDS: MUPIROCIN CALCIUM 2% 22 GM OINTMENT NASAL SCH ×2 (09:35→17:28)
[2023-04-18] MEDS: MENTHOL/ZINC OXIDE 113 GM OINTMENT TP SCH ×2 (09:40→20:29)
[2023-04-18] MEDS: DONEPEZIL HCL 5 MG TABLET PO SCH (20:28)
[2023-04-18] MEDS: MEMANTINE HCL 5 MG TABLET PO SCH (20:28)
[2023-04-18 21:59] VITALS: BP 139/73; PULSE 89; RESP 17; TEMP 97
[2023-04-19 08:40] VITALS: BP 143/99; PULSE 83; RESP 18; TEMP 97.6
[2023-04-19] MEDS: ASCORBIC ACID 500 MG TABLET PO SCH (10:34)
[2023-04-19] MEDS: RisperiDONE 2 MG TABLET PO SCH ×2 (10:34→20:52)
[2023-04-19] MEDS: CITALOPRAM HYDROBROMIDE 10 MG TABLET PO SCH (10:34)
[2023-04-19] MEDS: MULTIVITAMINS WITH MINERALS, THERAPEUTIC TABLET PO SCH (10:34)
[2023-04-19] MEDS: PETROLATUM,WHITE 28 GM JELLY TP SCH (10:35)
[2023-04-19] MEDS: MUPIROCIN CALCIUM 2% 22 GM OINTMENT NASAL SCH ×2 (10:35→16:11)
[2023-04-19] MEDS: MENTHOL/ZINC OXIDE 113 GM OINTMENT TP SCH ×2 (10:35→20:52)
[2023-04-19 20:19] VITALS: BP 131/72; PULSE 87; RESP 18; TEMP 97.4
[2023-04-19] MEDS: DONEPEZIL HCL 5 MG TABLET PO SCH (20:51)
[2023-04-19] MEDS: MEMANTINE HCL 5 MG TABLET PO SCH (20:51)
[2023-04-20] MEDS: PETROLATUM,WHITE 28 GM JELLY TP SCH (08:18)
[2023-04-20] MEDS: CITALOPRAM HYDROBROMIDE 10 MG TABLET PO SCH (08:18)
[2023-04-20] MEDS: MENTHOL/ZINC OXIDE 113 GM OINTMENT TP SCH ×2 (08:18→21:05)
[2023-04-20] MEDS: ASCORBIC ACID 500 MG TABLET PO SCH (08:18)
[2023-04-20] MEDS: MUPIROCIN CALCIUM 2% 22 GM OINTMENT NASAL SCH (08:18)
[2023-04-20] MEDS: RisperiDONE 2 MG TABLET PO SCH ×2 (08:18→21:05)
[2023-04-20] MEDS: MULTIVITAMINS WITH MINERALS, THERAPEUTIC TABLET PO SCH (08:19)
[2023-04-20 08:48] VITALS: BP 142/86; PULSE 83; RESP 18; TEMP 97.8
[2023-04-20] MEDS: DONEPEZIL HCL 5 MG TABLET PO SCH (21:05)
[2023-04-20] MEDS: MEMANTINE HCL 5 MG TABLET PO SCH (21:05)
[2023-04-20 21:32] VITALS: BP 120/71; PULSE 87; RESP 18; TEMP 97.8
[2023-04-21] MEDS: MENTHOL/ZINC OXIDE 113 GM OINTMENT TP SCH ×2 (08:36→20:00)
[2023-04-21] MEDS: CITALOPRAM HYDROBROMIDE 10 MG TABLET PO SCH (08:36)
[2023-04-21] MEDS: PETROLATUM,WHITE 28 GM JELLY TP SCH (08:36)
[2023-04-21] MEDS: ASCORBIC ACID 500 MG TABLET PO SCH (08:36)
[2023-04-21] MEDS: MULTIVITAMINS WITH MINERALS, THERAPEUTIC TABLET PO SCH (08:36)
[2023-04-21] MEDS: RisperiDONE 2 MG TABLET PO SCH ×2 (08:36→20:55)
[2023-04-21 09:34] VITALS: BP 141/91; PULSE 77; RESP 18; TEMP 97.9
[2023-04-21] MEDS: DONEPEZIL HCL 5 MG TABLET PO SCH (20:55)
[2023-04-21] MEDS: MEMANTINE HCL 5 MG TABLET PO SCH (20:55)
[2023-04-21 23:28] VITALS: BP 101/74; PULSE 76; RESP 18; TEMP 97.1
[2023-04-22] MEDS: RisperiDONE 2 MG TABLET PO SCH ×2 (09:08→20:47)
[2023-04-22] MEDS: PETROLATUM,WHITE 28 GM JELLY TP SCH (09:08)
[2023-04-22] MEDS: MENTHOL/ZINC OXIDE 113 GM OINTMENT TP SCH ×2 (09:08→20:48)
[2023-04-22] MEDS: MULTIVITAMINS WITH MINERALS, THERAPEUTIC TABLET PO SCH (09:08)
[2023-04-22] MEDS: CITALOPRAM HYDROBROMIDE 10 MG TABLET PO SCH (09:08)
[2023-04-22] MEDS: ASCORBIC ACID 500 MG TABLET PO SCH (09:08)
[2023-04-22 09:58] VITALS: BP 97/62; PULSE 87; RESP 18; TEMP 97.6
[2023-04-22] MEDS: MEMANTINE HCL 5 MG TABLET PO SCH (20:47)
[2023-04-22] MEDS: DONEPEZIL HCL 5 MG TABLET PO SCH (20:47)
[2023-04-22 22:41] VITALS: BP 146/81; PULSE 86; RESP 18; TEMP 98
[2023-04-23 09:07] VITALS: BP 139/76; PULSE 72; RESP 18; TEMP 98
[2023-04-23] MEDS: RisperiDONE 2 MG TABLET PO SCH ×2 (09:14→20:43)
[2023-04-23] MEDS: MENTHOL/ZINC OXIDE 113 GM OINTMENT TP SCH ×2 (09:14→20:43)
[2023-04-23] MEDS: MULTIVITAMINS WITH MINERALS, THERAPEUTIC TABLET PO SCH (09:14)
[2023-04-23] MEDS: PETROLATUM,WHITE 28 GM JELLY TP SCH (09:14)
[2023-04-23] MEDS: CITALOPRAM HYDROBROMIDE 10 MG TABLET PO SCH (09:59)
[2023-04-23] MEDS: ASCORBIC ACID 500 MG TABLET PO SCH (09:59)
[2023-04-23] MEDS: DONEPEZIL HCL 5 MG TABLET PO SCH (20:43)
[2023-04-23] MEDS: MEMANTINE HCL 5 MG TABLET PO SCH (20:43)
[2023-04-23 22:20] VITALS: BP 125/80; PULSE 93; RESP 19; TEMP 98.2
[2023-04-24 08:00] VITALS: BP 143/89; PULSE 83; RESP 18; TEMP 96.6
[2023-04-24] MEDS: MENTHOL/ZINC OXIDE 113 GM OINTMENT TP SCH ×2 (08:37→21:09)
[2023-04-24] MEDS: RisperiDONE 2 MG TABLET PO SCH ×2 (08:37→21:08)
[2023-04-24] MEDS: MULTIVITAMINS WITH MINERALS, THERAPEUTIC TABLET PO SCH (08:37)
[2023-04-24] MEDS: ASCORBIC ACID 500 MG TABLET PO SCH (08:37)
[2023-04-24] MEDS: CITALOPRAM HYDROBROMIDE 10 MG TABLET PO SCH (08:37)
[2023-04-24] MEDS: PETROLATUM,WHITE 28 GM JELLY TP SCH (08:38)
[2023-04-24 20:24] VITALS: BP 127/76; PULSE 85; RESP 18; TEMP 98.2
[2023-04-24] MEDS: MEMANTINE HCL 5 MG TABLET PO SCH (21:08)
[2023-04-24] MEDS: DONEPEZIL HCL 5 MG TABLET PO SCH (21:08)
[2023-04-25] MEDS: MENTHOL/ZINC OXIDE 113 GM OINTMENT TP SCH ×2 (08:17→21:03)
[2023-04-25] MEDS: ASCORBIC ACID 500 MG TABLET PO SCH (08:27)
[2023-04-25] MEDS: CITALOPRAM HYDROBROMIDE 10 MG TABLET PO SCH (08:27)
[2023-04-25] MEDS: PETROLATUM,WHITE 28 GM JELLY TP SCH (08:27)
[2023-04-25] MEDS: RisperiDONE 2 MG TABLET PO SCH ×2 (08:27→21:03)
[2023-04-25] MEDS: MULTIVITAMINS WITH MINERALS, THERAPEUTIC TABLET PO SCH (08:27)
[2023-04-25 09:12] VITALS: BP 144/89; PULSE 90; RESP 18; TEMP 97.7
[2023-04-25] MEDS: MUPIROCIN CALCIUM 2% 22 GM OINTMENT TP SCH (16:30)
[2023-04-25 20:57] VITALS: BP 139/93; PULSE 89; RESP 19; TEMP 97.9
[2023-04-25] MEDS: DONEPEZIL HCL 5 MG TABLET PO SCH (21:03)
[2023-04-25] MEDS: MEMANTINE HCL 5 MG TABLET PO SCH (21:03)
[2023-04-26] MEDS: MULTIVITAMINS WITH MINERALS, THERAPEUTIC TABLET PO SCH (08:14)
[2023-04-26] MEDS: MENTHOL/ZINC OXIDE 113 GM OINTMENT TP SCH ×2 (08:14→20:21)
[2023-04-26] MEDS: PETROLATUM,WHITE 28 GM JELLY TP SCH (08:15)
[2023-04-26] MEDS: CITALOPRAM HYDROBROMIDE 10 MG TABLET PO SCH (08:15)
[2023-04-26] MEDS: MUPIROCIN CALCIUM 2% 22 GM OINTMENT TP SCH ×2 (08:15→16:25)
[2023-04-26] MEDS: ASCORBIC ACID 500 MG TABLET PO SCH (08:15)
[2023-04-26] MEDS: RisperiDONE 2 MG TABLET PO SCH ×2 (08:15→20:21)
[2023-04-26 08:35] VITALS: BP 157/91; PULSE 92; RESP 18; TEMP 97
[2023-04-26 09:28] VITALS: BP 157/91; PULSE 92; RESP 18; TEMP 96
[2023-04-26] MEDS: MEMANTINE HCL 5 MG TABLET PO SCH (20:21)
[2023-04-26] MEDS: DONEPEZIL HCL 5 MG TABLET PO SCH (20:21)
[2023-04-26 21:04] VITALS: BP 140/80; PULSE 84; RESP 18; TEMP 97.4
[2023-04-27] MEDS: MENTHOL/ZINC OXIDE 113 GM OINTMENT TP SCH ×2 (08:09→20:55)
[2023-04-27] MEDS: PETROLATUM,WHITE 28 GM JELLY TP SCH (08:09)
[2023-04-27] MEDS: RisperiDONE 2 MG TABLET PO SCH ×2 (08:09→20:55)
[2023-04-27] MEDS: ASCORBIC ACID 500 MG TABLET PO SCH (08:09)
[2023-04-27] MEDS: MULTIVITAMINS WITH MINERALS, THERAPEUTIC TABLET PO SCH (08:09)
[2023-04-27] MEDS: MUPIROCIN CALCIUM 2% 22 GM OINTMENT TP SCH ×2 (08:09→16:25)
[2023-04-27] MEDS: CITALOPRAM HYDROBROMIDE 10 MG TABLET PO SCH (08:09)
[2023-04-27 08:36] VITALS: BP 167/72; PULSE 86; RESP 18; TEMP 98
[2023-04-27] MEDS: DONEPEZIL HCL 5 MG TABLET PO SCH (20:55)
[2023-04-27] MEDS: MEMANTINE HCL 5 MG TABLET PO SCH (20:55)
[2023-04-27 21:57] VITALS: BP 137/79; PULSE 83; RESP 18; TEMP 98
[2023-04-28] MEDS: CITALOPRAM HYDROBROMIDE 10 MG TABLET PO SCH (08:17)
[2023-04-28] MEDS: MENTHOL/ZINC OXIDE 113 GM OINTMENT TP SCH ×2 (08:17→20:41)
[2023-04-28] MEDS: MULTIVITAMINS WITH MINERALS, THERAPEUTIC TABLET PO SCH (08:17)
[2023-04-28] MEDS: ASCORBIC ACID 500 MG TABLET PO SCH (08:17)
[2023-04-28] MEDS: PETROLATUM,WHITE 28 GM JELLY TP SCH (08:17)
[2023-04-28] MEDS: RisperiDONE 2 MG TABLET PO SCH ×2 (08:17→20:42)
[2023-04-28] MEDS: MUPIROCIN CALCIUM 2% 22 GM OINTMENT TP SCH ×2 (08:17→16:17)
[2023-04-28 10:00] VITALS: BP 143/93; PULSE 88; RESP 16; TEMP 97.8
[2023-04-28] MEDS: MEMANTINE HCL 5 MG TABLET PO SCH (20:42)
[2023-04-28] MEDS: DONEPEZIL HCL 5 MG TABLET PO SCH (20:42)
[2023-04-28 20:44] VITALS: BP 142/79; PULSE 83; RESP 18; TEMP 97.7
[2023-04-29] MEDS: MULTIVITAMINS WITH MINERALS, THERAPEUTIC TABLET PO SCH (08:43)
[2023-04-29] MEDS: MENTHOL/ZINC OXIDE 113 GM OINTMENT TP SCH ×2 (08:43→20:44)
[2023-04-29] MEDS: MUPIROCIN CALCIUM 2% 22 GM OINTMENT TP SCH ×2 (08:44→16:21)
[2023-04-29] MEDS: CITALOPRAM HYDROBROMIDE 10 MG TABLET PO SCH (08:44)
[2023-04-29] MEDS: RisperiDONE 2 MG TABLET PO SCH ×2 (08:44→20:44)
[2023-04-29] MEDS: ASCORBIC ACID 500 MG TABLET PO SCH (08:44)
[2023-04-29] MEDS: PETROLATUM,WHITE 28 GM JELLY TP SCH (08:45)
[2023-04-29 10:04] VITALS: BP 147/89; PULSE 78; RESP 18; TEMP 97.4
[2023-04-29] MEDS: DONEPEZIL HCL 5 MG TABLET PO SCH (20:44)
[2023-04-29] MEDS: MEMANTINE HCL 5 MG TABLET PO SCH (20:44)
[2023-04-29 21:12] VITALS: BP 143/72; PULSE 91; RESP 18; TEMP 97.8
[2023-04-30 09:01] VITALS: BP 164/96; PULSE 82; RESP 18; TEMP 97.6
[2023-04-30] MEDS: RisperiDONE 2 MG TABLET PO SCH ×2 (09:01→20:09)
[2023-04-30] MEDS: MULTIVITAMINS WITH MINERALS, THERAPEUTIC TABLET PO SCH (09:01)
[2023-04-30] MEDS: CITALOPRAM HYDROBROMIDE 10 MG TABLET PO SCH (09:01)
[2023-04-30] MEDS: MENTHOL/ZINC OXIDE 113 GM OINTMENT TP SCH ×2 (09:01→20:10)
[2023-04-30] MEDS: ASCORBIC ACID 500 MG TABLET PO SCH (09:01)
[2023-04-30] MEDS: PETROLATUM,WHITE 28 GM JELLY TP SCH (09:02)
[2023-04-30] MEDS: MUPIROCIN CALCIUM 2% 22 GM OINTMENT TP SCH (09:02)
[2023-04-30] MEDS: DONEPEZIL HCL 5 MG TABLET PO SCH (20:09)
[2023-04-30] MEDS: MEMANTINE HCL 5 MG TABLET PO SCH (20:10)
[2023-04-30 20:20] VITALS: BP 147/80; PULSE 85; RESP 18; TEMP 98.2
[2023-05-01] MEDS: CITALOPRAM HYDROBROMIDE 10 MG TABLET PO SCH (08:53)
[2023-05-01] MEDS: RisperiDONE 2 MG TABLET PO SCH ×2 (08:53→20:53)
[2023-05-01] MEDS: MENTHOL/ZINC OXIDE 113 GM OINTMENT TP SCH ×2 (08:53→20:52)
[2023-05-01] MEDS: MULTIVITAMINS WITH MINERALS, THERAPEUTIC TABLET PO SCH (08:53)
[2023-05-01] MEDS: ASCORBIC ACID 500 MG TABLET PO SCH (08:54)
[2023-05-01] MEDS: PETROLATUM,WHITE 28 GM JELLY TP SCH (08:54)
[2023-05-01 09:53] VITALS: BP 147/86; PULSE 87; RESP 18; TEMP 97.8
[2023-05-01] MEDS: DONEPEZIL HCL 5 MG TABLET PO SCH (20:53)
[2023-05-01] MEDS: MEMANTINE HCL 5 MG TABLET PO SCH (20:53)
[2023-05-01 21:28] VITALS: BP 148/90; PULSE 75; RESP 18; TEMP 97.5
[2023-05-02] MEDS: CITALOPRAM HYDROBROMIDE 10 MG TABLET PO SCH (08:49)
[2023-05-02] MEDS: RisperiDONE 2 MG TABLET PO SCH ×2 (08:49→20:23)
[2023-05-02] MEDS: MENTHOL/ZINC OXIDE 113 GM OINTMENT TP SCH ×2 (08:49→20:23)
[2023-05-02] MEDS: PETROLATUM,WHITE 28 GM JELLY TP SCH (08:49)
[2023-05-02] MEDS: MULTIVITAMINS WITH MINERALS, THERAPEUTIC TABLET PO SCH (08:49)
[2023-05-02] MEDS: ASCORBIC ACID 500 MG TABLET PO SCH (08:49)
[2023-05-02 09:17] VITALS: BP 157/94; PULSE 81; RESP 18; TEMP 97.6
[2023-05-02] MEDS: MEMANTINE HCL 5 MG TABLET PO SCH (20:23)
[2023-05-02] MEDS: DONEPEZIL HCL 5 MG TABLET PO SCH (20:23)
[2023-05-02 20:59] VITALS: BP 142/81; PULSE 79; RESP 18; TEMP 97.6
[2023-05-03] MEDS: MULTIVITAMINS WITH MINERALS, THERAPEUTIC TABLET PO SCH (08:52)
[2023-05-03] MEDS: RisperiDONE 2 MG TABLET PO SCH ×2 (08:52→20:25)
[2023-05-03] MEDS: ASCORBIC ACID 500 MG TABLET PO SCH (08:53)
[2023-05-03] MEDS: CITALOPRAM HYDROBROMIDE 10 MG TABLET PO SCH (08:53)
[2023-05-03 09:04] VITALS: BP 149/92; PULSE 86; RESP 18; TEMP 97.6
[2023-05-03] MEDS: PETROLATUM,WHITE 28 GM JELLY TP SCH (11:31)
[2023-05-03] MEDS: MENTHOL/ZINC OXIDE 113 GM OINTMENT TP SCH ×2 (11:31→20:25)
[2023-05-03 20:15] VITALS: BP 124/76; PULSE 72; RESP 18; TEMP 98.1
[2023-05-03] MEDS: MEMANTINE HCL 5 MG TABLET PO SCH (20:24)
[2023-05-03] MEDS: DONEPEZIL HCL 5 MG TABLET PO SCH (20:25)
[2023-05-04] MEDS: ASCORBIC ACID 500 MG TABLET PO SCH (08:17)
[2023-05-04] MEDS: CITALOPRAM HYDROBROMIDE 10 MG TABLET PO SCH (08:17)
[2023-05-04] MEDS: MENTHOL/ZINC OXIDE 113 GM OINTMENT TP SCH ×2 (08:17→20:30)
[2023-05-04] MEDS: PETROLATUM,WHITE 28 GM JELLY TP SCH (08:17)
[2023-05-04] MEDS: RisperiDONE 3 MG TABLET PO SCH ×2 (08:17→20:31)
[2023-05-04] MEDS: MULTIVITAMINS WITH MINERALS, THERAPEUTIC TABLET PO SCH (08:17)
[2023-05-04 09:10] VITALS: BP 141/90; PULSE 90; RESP 18; TEMP 97.4
[2023-05-04] MEDS: DONEPEZIL HCL 5 MG TABLET PO SCH (20:30)
[2023-05-04] MEDS: MEMANTINE HCL 5 MG TABLET PO SCH (20:30)
[2023-05-04 20:58] VITALS: BP 144/76; PULSE 81; RESP 18; TEMP 97.3
[2023-05-05] MEDS: MENTHOL/ZINC OXIDE 113 GM OINTMENT TP SCH ×2 (08:12→20:38)
[2023-05-05] MEDS: RisperiDONE 3 MG TABLET PO SCH ×2 (08:13→20:52)
[2023-05-05] MEDS: PETROLATUM,WHITE 28 GM JELLY TP SCH (08:13)
[2023-05-05] MEDS: MULTIVITAMINS WITH MINERALS, THERAPEUTIC TABLET PO SCH (08:13)
[2023-05-05] MEDS: CITALOPRAM HYDROBROMIDE 10 MG TABLET PO SCH (08:13)
[2023-05-05] MEDS: ASCORBIC ACID 500 MG TABLET PO SCH (08:13)
[2023-05-05 09:32] VITALS: BP 142/88; PULSE 87; RESP 18; TEMP 97.4
[2023-05-05 20:19] VITALS: BP 132/76; PULSE 82; RESP 18; TEMP 97.2
[2023-05-05] MEDS: DONEPEZIL HCL 5 MG TABLET PO SCH (20:52)
[2023-05-05] MEDS: MEMANTINE HCL 5 MG TABLET PO SCH (20:52)
[2023-05-06] MEDS: RisperiDONE 3 MG TABLET PO SCH ×2 (08:30→20:53)
[2023-05-06] MEDS: CITALOPRAM HYDROBROMIDE 10 MG TABLET PO SCH (08:30)
[2023-05-06] MEDS: ASCORBIC ACID 500 MG TABLET PO SCH (08:30)
[2023-05-06] MEDS: PETROLATUM,WHITE 28 GM JELLY TP SCH (08:30)
[2023-05-06] MEDS: MENTHOL/ZINC OXIDE 113 GM OINTMENT TP SCH ×2 (08:30→20:53)
[2023-05-06] MEDS: MULTIVITAMINS WITH MINERALS, THERAPEUTIC TABLET PO SCH (08:30)
[2023-05-06 08:55] VITALS: BP 157/95; PULSE 86; RESP 19; TEMP 97.7
[2023-05-06] MEDS: DONEPEZIL HCL 5 MG TABLET PO SCH (20:53)
[2023-05-06] MEDS: MEMANTINE HCL 5 MG TABLET PO SCH (20:53)
[2023-05-06 21:24] VITALS: BP 140/79; PULSE 92; RESP 18; TEMP 97.7
[2023-05-07] MEDS: MENTHOL/ZINC OXIDE 113 GM OINTMENT TP SCH ×2 (08:02→20:46)
[2023-05-07] MEDS: ASCORBIC ACID 500 MG TABLET PO SCH (08:08)
[2023-05-07] MEDS: MULTIVITAMINS WITH MINERALS, THERAPEUTIC TABLET PO SCH (08:08)
[2023-05-07] MEDS: RisperiDONE 3 MG TABLET PO SCH ×2 (08:08→21:01)
[2023-05-07] MEDS: CITALOPRAM HYDROBROMIDE 10 MG TABLET PO SCH (08:08)
[2023-05-07] MEDS: PETROLATUM,WHITE 28 GM JELLY TP SCH (08:08)
[2023-05-07 10:14] VITALS: BP 130/99; PULSE 81; RESP 18; TEMP 97.9
[2023-05-07] MEDS: MEMANTINE HCL 5 MG TABLET PO SCH (21:01)
[2023-05-07] MEDS: DONEPEZIL HCL 5 MG TABLET PO SCH (21:01)
[2023-05-07 21:37] VITALS: BP 138/79; PULSE 88; RESP 18; TEMP 98.1
[2023-05-08] MEDS: ASCORBIC ACID 500 MG TABLET PO SCH (08:26)
[2023-05-08] MEDS: MENTHOL/ZINC OXIDE 113 GM OINTMENT TP SCH ×2 (08:26→20:30)
[2023-05-08] MEDS: CITALOPRAM HYDROBROMIDE 10 MG TABLET PO SCH (08:26)
[2023-05-08] MEDS: PETROLATUM,WHITE 28 GM JELLY TP SCH (08:27)
[2023-05-08] MEDS: RisperiDONE 3 MG TABLET PO SCH ×2 (08:28→21:29)
[2023-05-08] MEDS: MULTIVITAMINS WITH MINERALS, THERAPEUTIC TABLET PO SCH (08:28)
[2023-05-08 09:08] VITALS: BP 144/98; PULSE 80; RESP 17; TEMP 97.5
[2023-05-08] MEDS: MEMANTINE HCL 5 MG TABLET PO SCH (21:29)
[2023-05-08] MEDS: DONEPEZIL HCL 5 MG TABLET PO SCH (21:29)
[2023-05-08 22:51] VITALS: BP 157/94; PULSE 90; RESP 18; TEMP 97.5
[2023-05-09 08:13] LABS: HEMOGLOBIN A1C 6.5 % (3.8-5.6)
[2023-05-09 08:15] LABS: CHOL/HDL RATIO 4.7 (4.2-7.3)
[2023-05-09] MEDS: RisperiDONE 3 MG TABLET PO SCH ×2 (09:22→21:35)
[2023-05-09] MEDS: MULTIVITAMINS WITH MINERALS, THERAPEUTIC TABLET PO SCH (09:22)
[2023-05-09] MEDS: ASCORBIC ACID 500 MG TABLET PO SCH (09:23)
[2023-05-09] MEDS: CITALOPRAM HYDROBROMIDE 10 MG TABLET PO SCH (09:23)
[2023-05-09] MEDS: MENTHOL/ZINC OXIDE 113 GM OINTMENT TP SCH ×2 (09:23→21:35)
[2023-05-09] MEDS: PETROLATUM,WHITE 28 GM JELLY TP SCH (09:24)
[2023-05-09 09:25] VITALS: BP 138/82; PULSE 93; RESP 18; TEMP 97.2
[2023-05-09] MEDS: MEMANTINE HCL 5 MG TABLET PO SCH (21:35)
[2023-05-09] MEDS: DONEPEZIL HCL 5 MG TABLET PO SCH (21:35)
[2023-05-09 22:34] VITALS: BP 131/70; PULSE 84; RESP 18; TEMP 96.6
[2023-05-10] MEDS: MULTIVITAMINS WITH MINERALS, THERAPEUTIC TABLET PO SCH (09:06)
[2023-05-10] MEDS: ASCORBIC ACID 500 MG TABLET PO SCH (09:06)
[2023-05-10] MEDS: RisperiDONE 3 MG TABLET PO SCH ×2 (09:06→21:30)
[2023-05-10] MEDS: CITALOPRAM HYDROBROMIDE 10 MG TABLET PO SCH (09:06)
[2023-05-10] MEDS: PETROLATUM,WHITE 28 GM JELLY TP SCH (09:07)
[2023-05-10] MEDS: MENTHOL/ZINC OXIDE 113 GM OINTMENT TP SCH ×2 (09:07→21:30)
[2023-05-10 09:43] VITALS: BP 141/99; PULSE 83; RESP 18; TEMP 97.9
[2023-05-10 20:54] VITALS: BP 126/77; PULSE 62; RESP 18; TEMP 97.1
[2023-05-10] MEDS: MEMANTINE HCL 5 MG TABLET PO SCH (21:28)
[2023-05-10] MEDS: DONEPEZIL HCL 5 MG TABLET PO SCH (21:28)
[2023-05-11 08:00] VITALS: BP 144/90; PULSE 87; RESP 18; TEMP 96.7
[2023-05-11] MEDS: CITALOPRAM HYDROBROMIDE 10 MG TABLET PO SCH (08:23)
[2023-05-11] MEDS: MULTIVITAMINS WITH MINERALS, THERAPEUTIC TABLET PO SCH (08:23)
[2023-05-11] MEDS: ASCORBIC ACID 500 MG TABLET PO SCH (08:23)
[2023-05-11] MEDS: RisperiDONE 3 MG TABLET PO SCH ×2 (08:23→20:50)
[2023-05-11] MEDS: PETROLATUM,WHITE 28 GM JELLY TP SCH (08:25)
[2023-05-11] MEDS: MENTHOL/ZINC OXIDE 113 GM OINTMENT TP SCH ×2 (08:25→20:50)
[2023-05-11] MEDS: DONEPEZIL HCL 5 MG TABLET PO SCH (20:50)
[2023-05-11] MEDS: MEMANTINE HCL 5 MG TABLET PO SCH (20:50)
[2023-05-12] MEDS: PETROLATUM,WHITE 28 GM JELLY TP SCH (08:51)
[2023-05-12] MEDS: MULTIVITAMINS WITH MINERALS, THERAPEUTIC TABLET PO SCH (08:52)
[2023-05-12] MEDS: MENTHOL/ZINC OXIDE 113 GM OINTMENT TP SCH ×2 (08:52→20:36)
[2023-05-12] MEDS: RisperiDONE 3 MG TABLET PO SCH ×2 (08:52→20:36)
[2023-05-12] MEDS: ASCORBIC ACID 500 MG TABLET PO SCH (08:52)
[2023-05-12] MEDS: CITALOPRAM HYDROBROMIDE 10 MG TABLET PO SCH (08:52)
[2023-05-12 09:00] VITALS: BP 147/97; PULSE 83; RESP 18; TEMP 97.2
[2023-05-12] MEDS: MEMANTINE HCL 5 MG TABLET PO SCH (20:36)
[2023-05-12] MEDS: DONEPEZIL HCL 5 MG TABLET PO SCH (20:36)
[2023-05-12 22:14] VITALS: BP 142/84; PULSE 84; RESP 18; TEMP 97.7
[2023-05-13] MEDS: MENTHOL/ZINC OXIDE 113 GM OINTMENT TP SCH ×2 (08:23→20:38)
[2023-05-13] MEDS: CITALOPRAM HYDROBROMIDE 10 MG TABLET PO SCH (08:42)
[2023-05-13] MEDS: PETROLATUM,WHITE 28 GM JELLY TP SCH (08:42)
[2023-05-13] MEDS: MULTIVITAMINS WITH MINERALS, THERAPEUTIC TABLET PO SCH (08:42)
[2023-05-13] MEDS: ASCORBIC ACID 500 MG TABLET PO SCH (08:42)
[2023-05-13] MEDS: RisperiDONE 3 MG TABLET PO SCH ×2 (08:42→20:38)
[2023-05-13 08:50] VITALS: BP 149/78; PULSE 83; RESP 18; TEMP 98.1
[2023-05-13] MEDS: DONEPEZIL HCL 5 MG TABLET PO SCH (20:38)
[2023-05-13] MEDS: MEMANTINE HCL 5 MG TABLET PO SCH (20:38)
[2023-05-13 21:56] VITALS: BP 153/93; PULSE 94; RESP 18; TEMP 97.7
[2023-05-14] MEDS: MENTHOL/ZINC OXIDE 113 GM OINTMENT TP SCH ×2 (08:50→20:37)
[2023-05-14] MEDS: RisperiDONE 3 MG TABLET PO SCH ×2 (08:50→20:37)
[2023-05-14] MEDS: MULTIVITAMINS WITH MINERALS, THERAPEUTIC TABLET PO SCH (08:50)
[2023-05-14] MEDS: CITALOPRAM HYDROBROMIDE 10 MG TABLET PO SCH (08:50)
[2023-05-14] MEDS: ASCORBIC ACID 500 MG TABLET PO SCH (08:50)
[2023-05-14] MEDS: PETROLATUM,WHITE 28 GM JELLY TP SCH (08:51)
[2023-05-14 10:00] VITALS: BP 159/90; RESP 18
[2023-05-14 20:20] VITALS: BP 123/76; PULSE 82; RESP 18; TEMP 98.1
[2023-05-14] MEDS: MEMANTINE HCL 10 MG TABLET PO SCH (20:41)
[2023-05-14] MEDS: DONEPEZIL HCL 10 MG TABLET PO SCH (20:41)
[2023-05-15] MEDS: MENTHOL/ZINC OXIDE 113 GM OINTMENT TP SCH ×2 (08:36→20:41)
[2023-05-15] MEDS: MULTIVITAMINS WITH MINERALS, THERAPEUTIC TABLET PO SCH (08:37)
[2023-05-15] MEDS: PETROLATUM,WHITE 28 GM JELLY TP SCH (08:37)
[2023-05-15] MEDS: RisperiDONE 3 MG TABLET PO SCH ×2 (08:37→20:41)
[2023-05-15] MEDS: ASCORBIC ACID 500 MG TABLET PO SCH (08:37)
[2023-05-15] MEDS: CITALOPRAM HYDROBROMIDE 10 MG TABLET PO SCH (08:37)
[2023-05-15 09:18] VITALS: BP 160/93; PULSE 90; RESP 18; TEMP 97.1
[2023-05-15] MEDS: DONEPEZIL HCL 10 MG TABLET PO SCH (20:41)
[2023-05-15] MEDS: MEMANTINE HCL 10 MG TABLET PO SCH (20:41)
[2023-05-15 22:02] VITALS: BP 145/92; PULSE 83; RESP 18; TEMP 97.7
[2023-05-16] MEDS: CITALOPRAM HYDROBROMIDE 10 MG TABLET PO SCH (08:36)
[2023-05-16] MEDS: RisperiDONE 3 MG TABLET PO SCH ×2 (08:37→20:27)
[2023-05-16] MEDS: MENTHOL/ZINC OXIDE 113 GM OINTMENT TP SCH ×2 (08:37→20:27)
[2023-05-16] MEDS: ASCORBIC ACID 500 MG TABLET PO SCH (08:37)
[2023-05-16] MEDS: MULTIVITAMINS WITH MINERALS, THERAPEUTIC TABLET PO SCH (08:37)
[2023-05-16] MEDS: PETROLATUM,WHITE 28 GM JELLY TP SCH (08:37)
[2023-05-16 09:19] VITALS: BP 157/91; PULSE 89; RESP 18; TEMP 97.6
[2023-05-16] MEDS: MEMANTINE HCL 10 MG TABLET PO SCH (20:27)
[2023-05-16] MEDS: DONEPEZIL HCL 10 MG TABLET PO SCH (20:27)
[2023-05-16 23:25] VITALS: BP 154/84; PULSE 79; RESP 18; TEMP 97.4
[2023-05-17 08:30] VITALS: BP 150/94; PULSE 100; RESP 18; TEMP 97.6
[2023-05-17] MEDS: CITALOPRAM HYDROBROMIDE 10 MG TABLET PO SCH (09:23)
[2023-05-17] MEDS: MULTIVITAMINS WITH MINERALS, THERAPEUTIC TABLET PO SCH (09:23)
[2023-05-17] MEDS: RisperiDONE 3 MG TABLET PO SCH ×2 (09:23→20:29)
[2023-05-17] MEDS: ASCORBIC ACID 500 MG TABLET PO SCH (09:23)
[2023-05-17] MEDS: MENTHOL/ZINC OXIDE 113 GM OINTMENT TP SCH ×2 (09:23→20:29)
[2023-05-17] MEDS: PETROLATUM,WHITE 28 GM JELLY TP SCH (09:23)
[2023-05-17] MEDS: MEMANTINE HCL 10 MG TABLET PO SCH (20:29)
[2023-05-17] MEDS: DONEPEZIL HCL 10 MG TABLET PO SCH (20:29)
[2023-05-17 20:52] VITALS: BP 147/91; PULSE 96; RESP 18; TEMP 97.8
[2023-05-18 08:00] VITALS: BP 130/75; PULSE 88; RESP 18; TEMP 97
[2023-05-18] MEDS: ASCORBIC ACID 500 MG TABLET PO SCH (09:02)
[2023-05-18] MEDS: RisperiDONE 3 MG TABLET PO SCH ×2 (09:02→21:01)
[2023-05-18] MEDS: MULTIVITAMINS WITH MINERALS, THERAPEUTIC TABLET PO SCH (09:02)
[2023-05-18] MEDS: MENTHOL/ZINC OXIDE 113 GM OINTMENT TP SCH ×2 (09:03→21:01)
[2023-05-18] MEDS: CITALOPRAM HYDROBROMIDE 10 MG TABLET PO SCH (09:03)
[2023-05-18] MEDS: PETROLATUM,WHITE 28 GM JELLY TP SCH (09:03)
[2023-05-18] MEDS: DONEPEZIL HCL 10 MG TABLET PO SCH (21:01)
[2023-05-18] MEDS: MEMANTINE HCL 10 MG TABLET PO SCH (21:01)
[2023-05-18 23:15] VITALS: BP 131/79; PULSE 84; RESP 18; TEMP 97.4
[2023-05-19] MEDS: ASCORBIC ACID 500 MG TABLET PO SCH (08:07)
[2023-05-19] MEDS: CITALOPRAM HYDROBROMIDE 10 MG TABLET PO SCH (08:07)
[2023-05-19] MEDS: MENTHOL/ZINC OXIDE 113 GM OINTMENT TP SCH ×2 (08:07→20:25)
[2023-05-19] MEDS: RisperiDONE 3 MG TABLET PO SCH ×2 (08:08→20:25)
[2023-05-19] MEDS: MULTIVITAMINS WITH MINERALS, THERAPEUTIC TABLET PO SCH (08:08)
[2023-05-19] MEDS: PETROLATUM,WHITE 28 GM JELLY TP SCH (10:00)
[2023-05-19 11:04] VITALS: BP 127/77; PULSE 87; RESP 18; TEMP 97.2
[2023-05-19] MEDS: DONEPEZIL HCL 10 MG TABLET PO SCH (20:25)
[2023-05-19] MEDS: MEMANTINE HCL 10 MG TABLET PO SCH (20:25)
[2023-05-19 21:51] VITALS: BP 128/79; PULSE 82; RESP 18; TEMP 97.5
[2023-05-20] MEDS: MENTHOL/ZINC OXIDE 113 GM OINTMENT TP SCH ×2 (08:06→20:45)
[2023-05-20] MEDS: ASCORBIC ACID 500 MG TABLET PO SCH (08:11)
[2023-05-20] MEDS: CITALOPRAM HYDROBROMIDE 10 MG TABLET PO SCH (08:11)
[2023-05-20] MEDS: RisperiDONE 3 MG TABLET PO SCH ×2 (08:12→20:45)
[2023-05-20] MEDS: MULTIVITAMINS WITH MINERALS, THERAPEUTIC TABLET PO SCH (08:12)
[2023-05-20] MEDS: PETROLATUM,WHITE 28 GM JELLY TP SCH (08:17)
[2023-05-20 10:40] VITALS: BP 142/87; PULSE 80; RESP 18; TEMP 97.7
[2023-05-20] MEDS: DONEPEZIL HCL 10 MG TABLET PO SCH (20:45)
[2023-05-20] MEDS: MEMANTINE HCL 10 MG TABLET PO SCH (20:45)
[2023-05-20 21:54] VITALS: RESP 18
[2023-05-21] MEDS: CITALOPRAM HYDROBROMIDE 10 MG TABLET PO SCH (08:30)
[2023-05-21] MEDS: MENTHOL/ZINC OXIDE 113 GM OINTMENT TP SCH ×2 (08:30→20:46)
[2023-05-21] MEDS: PETROLATUM,WHITE 28 GM JELLY TP SCH (08:32)
[2023-05-21] MEDS: MULTIVITAMINS WITH MINERALS, THERAPEUTIC TABLET PO SCH (08:32)
[2023-05-21] MEDS: ASCORBIC ACID 500 MG TABLET PO SCH (08:32)
[2023-05-21] MEDS: RisperiDONE 3 MG TABLET PO SCH ×2 (08:32→20:46)
[2023-05-21 10:45] VITALS: BP 118/78; PULSE 97; RESP 18; TEMP 97.7
[2023-05-21] MEDS: DONEPEZIL HCL 10 MG TABLET PO SCH (20:46)
[2023-05-21] MEDS: MEMANTINE HCL 10 MG TABLET PO SCH (20:46)
[2023-05-21 22:16] VITALS: BP 145/77; PULSE 86; RESP 17; TEMP 97.6
[2023-05-22] MEDS: RisperiDONE 3 MG TABLET PO SCH ×2 (09:06→20:51)
[2023-05-22] MEDS: MENTHOL/ZINC OXIDE 113 GM OINTMENT TP SCH ×2 (09:07→20:51)
[2023-05-22] MEDS: MULTIVITAMINS WITH MINERALS, THERAPEUTIC TABLET PO SCH (09:07)
[2023-05-22] MEDS: PETROLATUM,WHITE 28 GM JELLY TP SCH (09:07)
[2023-05-22] MEDS: CITALOPRAM HYDROBROMIDE 10 MG TABLET PO SCH (09:07)
[2023-05-22] MEDS: ASCORBIC ACID 500 MG TABLET PO SCH (09:07)
[2023-05-22 09:45] VITALS: BP 152/87; PULSE 82; RESP 18; TEMP 98.6
[2023-05-22 20:25] VITALS: BP 144/84; PULSE 78; RESP 17; TEMP 97.5
[2023-05-22] MEDS: MEMANTINE HCL 10 MG TABLET PO SCH (20:51)
[2023-05-22] MEDS: DONEPEZIL HCL 10 MG TABLET PO SCH (20:51)
[2023-05-23 08:50] VITALS: BP 156/60; PULSE 83; RESP 18; TEMP 97.6
[2023-05-23] MEDS: RisperiDONE 3 MG TABLET PO SCH ×2 (09:00→20:37)
[2023-05-23] MEDS: MULTIVITAMINS WITH MINERALS, THERAPEUTIC TABLET PO SCH (09:00)
[2023-05-23] MEDS: PETROLATUM,WHITE 28 GM JELLY TP SCH (09:00)
[2023-05-23] MEDS: MENTHOL/ZINC OXIDE 113 GM OINTMENT TP SCH ×2 (09:00→20:51)
[2023-05-23] MEDS: ASCORBIC ACID 500 MG TABLET PO SCH (09:00)
[2023-05-23] MEDS: CITALOPRAM HYDROBROMIDE 10 MG TABLET PO SCH (09:00)
[2023-05-23] MEDS: DONEPEZIL HCL 10 MG TABLET PO SCH (20:37)
[2023-05-23] MEDS: MEMANTINE HCL 10 MG TABLET PO SCH (20:37)
[2023-05-23 20:46] VITALS: BP 137/89; PULSE 84; RESP 19; TEMP 97.6
[2023-05-24 08:03] VITALS: BP 128/88; PULSE 88; RESP 18; TEMP 97.2
[2023-05-24] MEDS: PETROLATUM,WHITE 28 GM JELLY TP SCH (08:50)
[2023-05-24] MEDS: MENTHOL/ZINC OXIDE 113 GM OINTMENT TP SCH ×2 (08:50→21:03)
[2023-05-24] MEDS: ASCORBIC ACID 500 MG TABLET PO SCH (08:50)
[2023-05-24] MEDS: CITALOPRAM HYDROBROMIDE 10 MG TABLET PO SCH (08:50)
[2023-05-24] MEDS: MULTIVITAMINS WITH MINERALS, THERAPEUTIC TABLET PO SCH (08:50)
[2023-05-24] MEDS: RisperiDONE 3 MG TABLET PO SCH ×2 (08:50→20:43)
[2023-05-24] MEDS: DONEPEZIL HCL 10 MG TABLET PO SCH (20:43)
[2023-05-24] MEDS: MEMANTINE HCL 10 MG TABLET PO SCH (20:43)
[2023-05-24 23:33] VITALS: BP 138/82; PULSE 71; RESP 18; TEMP 98.4
[2023-05-25] MEDS: MENTHOL/ZINC OXIDE 113 GM OINTMENT TP SCH ×2 (08:00→21:15)
[2023-05-25] MEDS: RisperiDONE 3 MG TABLET PO SCH ×2 (08:33→21:14)
[2023-05-25] MEDS: CITALOPRAM HYDROBROMIDE 10 MG TABLET PO SCH (08:33)
[2023-05-25] MEDS: ASCORBIC ACID 500 MG TABLET PO SCH (08:33)
[2023-05-25] MEDS: MULTIVITAMINS WITH MINERALS, THERAPEUTIC TABLET PO SCH (08:33)
[2023-05-25] MEDS: PETROLATUM,WHITE 28 GM JELLY TP SCH (08:34)
[2023-05-25 09:15] VITALS: BP 132/81; PULSE 87; RESP 19; TEMP 97.1
[2023-05-25 19:59] VITALS: BP 132/76; PULSE 62; RESP 18; TEMP 98.1
[2023-05-25 20:30] VITALS: BP 124/76; PULSE 76; RESP 18; TEMP 97.1
[2023-05-25] MEDS: MEMANTINE HCL 10 MG TABLET PO SCH (21:14)
[2023-05-25] MEDS: DONEPEZIL HCL 10 MG TABLET PO SCH (21:14)
[2023-05-26] MEDS: MENTHOL/ZINC OXIDE 113 GM OINTMENT TP SCH ×2 (08:00→20:20)
[2023-05-26 08:45] VITALS: BP 135/82; PULSE 101; RESP 18; TEMP 97.9
[2023-05-26] MEDS: CITALOPRAM HYDROBROMIDE 20 MG TABLET PO SCH (08:47)
[2023-05-26] MEDS: MULTIVITAMINS WITH MINERALS, THERAPEUTIC TABLET PO SCH (08:47)
[2023-05-26] MEDS: ASCORBIC ACID 500 MG TABLET PO SCH (08:47)
[2023-05-26] MEDS: RisperiDONE 3 MG TABLET PO SCH ×2 (08:47→20:20)
[2023-05-26] MEDS: PETROLATUM,WHITE 28 GM JELLY TP SCH (08:48)
[2023-05-26] MEDS: MEMANTINE HCL 10 MG TABLET PO SCH (20:20)
[2023-05-26] MEDS: DONEPEZIL HCL 10 MG TABLET PO SCH (20:20)
[2023-05-26 22:15] VITALS: BP 141/65; PULSE 81; RESP 18; TEMP 97.5
[2023-05-27] MEDS: ASCORBIC ACID 500 MG TABLET PO SCH (08:21)
[2023-05-27] MEDS: MENTHOL/ZINC OXIDE 113 GM OINTMENT TP SCH ×2 (08:21→20:17)
[2023-05-27] MEDS: PETROLATUM,WHITE 28 GM JELLY TP SCH (08:23)
[2023-05-27] MEDS: CITALOPRAM HYDROBROMIDE 20 MG TABLET PO SCH (08:23)
[2023-05-27] MEDS: MULTIVITAMINS WITH MINERALS, THERAPEUTIC TABLET PO SCH (08:23)
[2023-05-27] MEDS: RisperiDONE 3 MG TABLET PO SCH ×2 (08:23→20:17)
[2023-05-27 09:05] VITALS: BP 117/75; PULSE 93; RESP 17; TEMP 98
[2023-05-27] MEDS: MEMANTINE HCL 10 MG TABLET PO SCH (20:17)
[2023-05-27] MEDS: DONEPEZIL HCL 10 MG TABLET PO SCH (20:17)
[2023-05-27 22:08] VITALS: BP 123/76; PULSE 82; RESP 18; TEMP 97.1
[2023-05-28] MEDS: MENTHOL/ZINC OXIDE 113 GM OINTMENT TP SCH ×2 (08:31→20:57)
[2023-05-28] MEDS: PETROLATUM,WHITE 28 GM JELLY TP SCH (08:32)
[2023-05-28] MEDS: CITALOPRAM HYDROBROMIDE 20 MG TABLET PO SCH (08:32)
[2023-05-28] MEDS: RisperiDONE 3 MG TABLET PO SCH ×2 (08:32→20:57)
[2023-05-28] MEDS: MULTIVITAMINS WITH MINERALS, THERAPEUTIC TABLET PO SCH (08:32)
[2023-05-28] MEDS: ASCORBIC ACID 500 MG TABLET PO SCH (08:33)
[2023-05-28 09:36] VITALS: BP 134/84; PULSE 88; RESP 18; TEMP 97.8
[2023-05-28 20:38] VITALS: BP 139/78; PULSE 91; RESP 18; TEMP 97.6
[2023-05-28] MEDS: MEMANTINE HCL 10 MG TABLET PO SCH (20:57)
[2023-05-28] MEDS: DONEPEZIL HCL 10 MG TABLET PO SCH (20:57)
[2023-05-29] MEDS: MENTHOL/ZINC OXIDE 113 GM OINTMENT TP SCH ×2 (08:03→21:37)
[2023-05-29] MEDS: PETROLATUM,WHITE 28 GM JELLY TP SCH (08:11)
[2023-05-29] MEDS: ASCORBIC ACID 500 MG TABLET PO SCH (08:11)
[2023-05-29] MEDS: RisperiDONE 3 MG TABLET PO SCH ×2 (08:12→21:37)
[2023-05-29] MEDS: CITALOPRAM HYDROBROMIDE 20 MG TABLET PO SCH (08:12)
[2023-05-29] MEDS: MULTIVITAMINS WITH MINERALS, THERAPEUTIC TABLET PO SCH (08:12)
[2023-05-29 09:56] VITALS: BP 134/79; PULSE 86; RESP 17; TEMP 98.1
[2023-05-29] MEDS: DONEPEZIL HCL 10 MG TABLET PO SCH (21:37)
[2023-05-29] MEDS: MEMANTINE HCL 10 MG TABLET PO SCH (21:37)
[2023-05-29 22:42] VITALS: BP 153/82; PULSE 81; RESP 18; TEMP 97.5
[2023-05-30 08:12] VITALS: BP 154/78; PULSE 78; RESP 18; TEMP 97.5
[2023-05-30] MEDS: ASCORBIC ACID 500 MG TABLET PO SCH (08:30)
[2023-05-30] MEDS: PETROLATUM,WHITE 28 GM JELLY TP SCH (08:30)
[2023-05-30] MEDS: MULTIVITAMINS WITH MINERALS, THERAPEUTIC TABLET PO SCH (08:30)
[2023-05-30] MEDS: MENTHOL/ZINC OXIDE 113 GM OINTMENT TP SCH ×2 (08:30→20:49)
[2023-05-30] MEDS: RisperiDONE 3 MG TABLET PO SCH ×2 (08:30→20:49)
[2023-05-30] MEDS: CITALOPRAM HYDROBROMIDE 20 MG TABLET PO SCH (08:30)
[2023-05-30 09:49] VITALS: BP 154/84; PULSE 90; RESP 17; TEMP 97.3
[2023-05-30 20:15] VITALS: BP 154/78; PULSE 78; RESP 18; TEMP 97.5
[2023-05-30] MEDS: DONEPEZIL HCL 10 MG TABLET PO SCH (20:49)
[2023-05-30] MEDS: MEMANTINE HCL 10 MG TABLET PO SCH (20:49)
[2023-05-31] MEDS: MENTHOL/ZINC OXIDE 113 GM OINTMENT TP SCH ×2 (08:42→20:59)
[2023-05-31] MEDS: PETROLATUM,WHITE 28 GM JELLY TP SCH (08:42)
[2023-05-31] MEDS: ASCORBIC ACID 500 MG TABLET PO SCH (08:42)
[2023-05-31] MEDS: RisperiDONE 3 MG TABLET PO SCH ×2 (08:42→20:58)
[2023-05-31] MEDS: CITALOPRAM HYDROBROMIDE 20 MG TABLET PO SCH (08:42)
[2023-05-31] MEDS: MULTIVITAMINS WITH MINERALS, THERAPEUTIC TABLET PO SCH (08:42)
[2023-05-31 09:42] VITALS: BP 121/79; PULSE 91; RESP 18; TEMP 97.9
[2023-05-31] MEDS: MEMANTINE HCL 10 MG TABLET PO SCH (20:58)
[2023-05-31] MEDS: DONEPEZIL HCL 10 MG TABLET PO SCH (20:59)
[2023-05-31 23:11] VITALS: BP 147/75; PULSE 75; RESP 18; TEMP 98
[2023-06-01] MEDS: MENTHOL/ZINC OXIDE 113 GM OINTMENT TP SCH ×2 (08:22→20:54)
[2023-06-01] MEDS: MULTIVITAMINS WITH MINERALS, THERAPEUTIC TABLET PO SCH (08:22)
[2023-06-01] MEDS: ASCORBIC ACID 500 MG TABLET PO SCH (08:22)
[2023-06-01] MEDS: CITALOPRAM HYDROBROMIDE 20 MG TABLET PO SCH (08:22)
[2023-06-01] MEDS: PETROLATUM,WHITE 28 GM JELLY TP SCH (08:22)
[2023-06-01] MEDS: RisperiDONE 3 MG TABLET PO SCH ×2 (08:22→20:54)
[2023-06-01 10:59] VITALS: BP 143/96; PULSE 95; RESP 18; TEMP 97.5
[2023-06-01] MEDS ORDERED: TUBERCULIN, PURIFIED PROTEIN DERIVATIVE 5 TU/0.1 ML SYRINGE ID ONE (15:00)
[2023-06-01] MEDS: DONEPEZIL HCL 10 MG TABLET PO SCH (20:54)
[2023-06-01] MEDS: MEMANTINE HCL 10 MG TABLET PO SCH (20:54)
[2023-06-01 22:20] VITALS: BP 131/71; PULSE 77; RESP 18; TEMP 97.7
[2023-06-02 08:15] VITALS: BP 125/81; PULSE 99; RESP 17; TEMP 97.9
[2023-06-02] MEDS: MULTIVITAMINS WITH MINERALS, THERAPEUTIC TABLET PO SCH (08:20)
[2023-06-02] MEDS: ASCORBIC ACID 500 MG TABLET PO SCH (08:21)
[2023-06-02] MEDS: CITALOPRAM HYDROBROMIDE 20 MG TABLET PO SCH (08:21)
[2023-06-02] MEDS: RisperiDONE 3 MG TABLET PO SCH ×2 (08:21→20:51)
[2023-06-02] MEDS: MENTHOL/ZINC OXIDE 113 GM OINTMENT TP SCH ×2 (08:22→20:51)
[2023-06-02] MEDS: PETROLATUM,WHITE 28 GM JELLY TP SCH (08:22)
[2023-06-02 20:10] VITALS: BP 138/79; PULSE 89; RESP 18; TEMP 98.4
[2023-06-02] MEDS: DONEPEZIL HCL 10 MG TABLET PO SCH (20:51)
[2023-06-02] MEDS: MEMANTINE HCL 10 MG TABLET PO SCH (20:51)
[2023-06-03 08:00] VITALS: BP 163/86; PULSE 91; RESP 19; TEMP 97.1
[2023-06-03] MEDS: MEMANTINE HCL 10 MG TABLET PO SCH ×2 (11:06→21:12)
[2023-06-03] MEDS: CITALOPRAM HYDROBROMIDE 20 MG TABLET PO SCH (11:06)
[2023-06-03] MEDS: ASCORBIC ACID 500 MG TABLET PO SCH (11:06)
[2023-06-03] MEDS: DONEPEZIL HCL 10 MG TABLET PO SCH ×2 (11:06→21:12)
[2023-06-03] MEDS: MULTIVITAMINS WITH MINERALS, THERAPEUTIC TABLET PO SCH (11:06)
[2023-06-03] MEDS: RisperiDONE 3 MG TABLET PO SCH ×2 (11:06→21:12)
[2023-06-03] MEDS: MENTHOL/ZINC OXIDE 113 GM OINTMENT TP SCH ×2 (11:07→21:12)
[2023-06-03] MEDS: PETROLATUM,WHITE 28 GM JELLY TP SCH (11:07)
[2023-06-03 21:08] VITALS: BP 144/79; PULSE 62; RESP 18; TEMP 97.1
[2023-06-04] MEDS: CITALOPRAM HYDROBROMIDE 20 MG TABLET PO SCH (09:36)
[2023-06-04] MEDS: RisperiDONE 3 MG TABLET PO SCH ×2 (09:36→20:43)
[2023-06-04] MEDS: MENTHOL/ZINC OXIDE 113 GM OINTMENT TP SCH ×2 (09:37→20:43)
[2023-06-04] MEDS: MULTIVITAMINS WITH MINERALS, THERAPEUTIC TABLET PO SCH (09:37)
[2023-06-04] MEDS: ASCORBIC ACID 500 MG TABLET PO SCH (09:37)
[2023-06-04] MEDS: PETROLATUM,WHITE 28 GM JELLY TP SCH (09:38)
[2023-06-04 11:38] VITALS: BP 140/90; PULSE 73; RESP 17; TEMP 98
[2023-06-04 11:40] VITALS: BP 140/79; PULSE 73; RESP 17; TEMP 98
[2023-06-04] MEDS: DONEPEZIL HCL 10 MG TABLET PO SCH (20:43)
[2023-06-04] MEDS: MEMANTINE HCL 10 MG TABLET PO SCH (20:43)
[2023-06-04 22:02] VITALS: BP 140/83; PULSE 73; RESP 18; TEMP 98
[2023-06-05] MEDS: CITALOPRAM HYDROBROMIDE 20 MG TABLET PO SCH (08:25)
[2023-06-05] MEDS: ASCORBIC ACID 500 MG TABLET PO SCH (08:25)
[2023-06-05] MEDS: RisperiDONE 3 MG TABLET PO SCH ×2 (08:25→20:15)
[2023-06-05] MEDS: MULTIVITAMINS WITH MINERALS, THERAPEUTIC TABLET PO SCH (08:25)
[2023-06-05] MEDS: PETROLATUM,WHITE 28 GM JELLY TP SCH (08:26)
[2023-06-05] MEDS: MENTHOL/ZINC OXIDE 113 GM OINTMENT TP SCH ×2 (08:26→20:15)
[2023-06-05 11:04] VITALS: BP 145/94; PULSE 85; RESP 18; TEMP 97.8
[2023-06-05] MEDS: DONEPEZIL HCL 10 MG TABLET PO SCH (20:15)
[2023-06-05] MEDS: MEMANTINE HCL 10 MG TABLET PO SCH (20:15)
[2023-06-05 21:39] VITALS: BP 131/75; PULSE 83; RESP 18; TEMP 97.6
[2023-06-06 09:00] VITALS: BP 154/94; PULSE 80; RESP 17; TEMP 97.7
[2023-06-06] MEDS: MENTHOL/ZINC OXIDE 113 GM OINTMENT TP SCH ×2 (09:04→20:48)
[2023-06-06] MEDS: ASCORBIC ACID 500 MG TABLET PO SCH (09:05)
[2023-06-06] MEDS: MULTIVITAMINS WITH MINERALS, THERAPEUTIC TABLET PO SCH (09:06)
[2023-06-06] MEDS: RisperiDONE 3 MG TABLET PO SCH ×2 (09:06→20:49)
[2023-06-06] MEDS: CITALOPRAM HYDROBROMIDE 20 MG TABLET PO SCH (09:06)
[2023-06-06] MEDS: PETROLATUM,WHITE 28 GM JELLY TP SCH (09:06)
[2023-06-06 20:33] VITALS: RESP 20
[2023-06-06] MEDS: MEMANTINE HCL 10 MG TABLET PO SCH (20:48)
[2023-06-06] MEDS: DONEPEZIL HCL 10 MG TABLET PO SCH (20:49)
[2023-06-07] MEDS: MENTHOL/ZINC OXIDE 113 GM OINTMENT TP SCH ×2 (08:08→20:10)
[2023-06-07] MEDS: RisperiDONE 3 MG TABLET PO SCH ×2 (08:08→21:03)
[2023-06-07] MEDS: CITALOPRAM HYDROBROMIDE 20 MG TABLET PO SCH (08:08)
[2023-06-07] MEDS: MULTIVITAMINS WITH MINERALS, THERAPEUTIC TABLET PO SCH (08:08)
[2023-06-07] MEDS: ASCORBIC ACID 500 MG TABLET PO SCH (08:09)
[2023-06-07] MEDS: PETROLATUM,WHITE 28 GM JELLY TP SCH (08:09)
[2023-06-07 09:13] VITALS: BP 155/96; PULSE 82; RESP 18; TEMP 98
[2023-06-07 20:37] VITALS: BP 150/88; PULSE 74; RESP 18; TEMP 98.1
[2023-06-07] MEDS: DONEPEZIL HCL 10 MG TABLET PO SCH (21:03)
[2023-06-07] MEDS: MEMANTINE HCL 10 MG TABLET PO SCH (21:03)
[2023-06-08 08:13] VITALS: BP 149/95; PULSE 76; RESP 18; TEMP 97.3
[2023-06-08] MEDS: RisperiDONE 3 MG TABLET PO SCH ×2 (09:49→20:37)
[2023-06-08] MEDS: ASCORBIC ACID 500 MG TABLET PO SCH (09:49)
[2023-06-08] MEDS: MULTIVITAMINS WITH MINERALS, THERAPEUTIC TABLET PO SCH (09:49)
[2023-06-08] MEDS: MENTHOL/ZINC OXIDE 113 GM OINTMENT TP SCH ×2 (09:49→20:37)
[2023-06-08] MEDS: CITALOPRAM HYDROBROMIDE 20 MG TABLET PO SCH (09:49)
[2023-06-08] MEDS: PETROLATUM,WHITE 28 GM JELLY TP SCH (09:50)
[2023-06-08] MEDS: DONEPEZIL HCL 10 MG TABLET PO SCH (20:37)
[2023-06-08] MEDS: MEMANTINE HCL 10 MG TABLET PO SCH (20:37)
[2023-06-08 21:09] VITALS: BP 135/84; PULSE 78; RESP 16; TEMP 98.1
[2023-06-09] MEDS: MENTHOL/ZINC OXIDE 113 GM OINTMENT TP SCH ×2 (08:52→20:17)
[2023-06-09] MEDS: CITALOPRAM HYDROBROMIDE 20 MG TABLET PO SCH (08:53)
[2023-06-09] MEDS: PETROLATUM,WHITE 28 GM JELLY TP SCH (08:53)
[2023-06-09] MEDS: RisperiDONE 3 MG TABLET PO SCH ×2 (08:53→20:17)
[2023-06-09] MEDS: ASCORBIC ACID 500 MG TABLET PO SCH (08:53)
[2023-06-09] MEDS: MULTIVITAMINS WITH MINERALS, THERAPEUTIC TABLET PO SCH (08:53)
[2023-06-09 15:50] VITALS: BP 149/82; PULSE 100; RESP 16; TEMP 97.5
[2023-06-09 20:16] VITALS: BP 146/83; PULSE 93; RESP 19; TEMP 98.5
[2023-06-09] MEDS: DONEPEZIL HCL 10 MG TABLET PO SCH (20:17)
[2023-06-09] MEDS: MEMANTINE HCL 10 MG TABLET PO SCH (20:17)
[2023-06-10] MEDS: MENTHOL/ZINC OXIDE 113 GM OINTMENT TP SCH ×2 (08:16→20:04)
[2023-06-10] MEDS: ASCORBIC ACID 500 MG TABLET PO SCH (08:16)
[2023-06-10] MEDS: MULTIVITAMINS WITH MINERALS, THERAPEUTIC TABLET PO SCH (08:18)
[2023-06-10] MEDS: RisperiDONE 3 MG TABLET PO SCH (08:19)
[2023-06-10] MEDS: PETROLATUM,WHITE 28 GM JELLY TP SCH (08:19)
[2023-06-10] MEDS: CITALOPRAM HYDROBROMIDE 20 MG TABLET PO SCH (08:19)
[2023-06-10 09:45] VITALS: BP 148/78; PULSE 79; RESP 18; TEMP 98.4
[2023-06-10] MEDS: RisperiDONE 1 MG TABLET PO SCH (20:04)
[2023-06-10] MEDS: MEMANTINE HCL 10 MG TABLET PO SCH (20:04)
[2023-06-10] MEDS: DONEPEZIL HCL 10 MG TABLET PO SCH (20:04)
[2023-06-10 20:37] VITALS: BP 140/75; PULSE 80; RESP 18; TEMP 98.2
[2023-06-10 21:21] LABS: BASOPHILS % (AUTO) 0.3 % (0.0-2.0); EOSINOPHILS % (AUTO) 0.2 % (1.0-6.0); HEMATOCRIT 24.7 % (41-53); HEMOGLOBIN 8.1 g/dL (13.5-17.5); LYMPHOCYTES # (AUTO) 0.6 K/uL (1.0-4.8); LYMPHOCYTES % (AUTO) 16.4 % (22.0-44.0); MEAN CORPUSCULAR HEMOGLOBIN 29.2 pg (26.0-34.0); MEAN CORPUSCULAR HGB CONC 32.7 G/dL (31.0-37.0); MEAN CORPUSCULAR VOLUME 89 fL (80-100); MONOCYTES % (AUTO) 25.5 % (2.0-9.0); NEUTROPHILS # (AUTO) 2.2 K/uL (1.8-7.7); NEUTROPHILS % (AUTO) 57.6 % (40.0-70.0); PLATELET COUNT (AUTO) 156 K/uL (150-450); RED BLOOD CELL COUNT(AUTO) 2.77 MIL/uL (4.50-5.90); RED CELL DISTRIBUTION WIDTH 12.9 % (11.5-14.5)
[2023-06-10 21:32] LABS: CALCIUM, TOTAL 9.1 mg/dL (8.8-10.5); CREATININE 1.88 mg/dL (0.60-1.30); POTASSIUM 5.1 mmol/L (3.5-5.1)
[2023-06-10 21:38] LABS: ALBUMIN 2.7 g/dL (3.4-5.0); BILIRUBIN,TOTAL 0.3 mg/dL (0.1-1.0); TOTAL PROTEIN, SERUM 7.6 g/dL (6.4-8.2)
[2023-06-11 01:19] VITALS: TEMP 101.7
[2023-06-11 02:20] VITALS: TEMP 100
[2023-06-11 03:15] LABS: COVID AG,FIA SOURCE NASAL SWAB
[2023-06-11 06:03] VITALS: TEMP 99.9
[2023-06-11] MEDS: ASCORBIC ACID 500 MG TABLET PO SCH (10:49)
[2023-06-11] MEDS: MENTHOL/ZINC OXIDE 113 GM OINTMENT TP SCH (10:49)
[2023-06-11] MEDS: RisperiDONE 1 MG TABLET PO SCH (10:51)
[2023-06-11] MEDS: CITALOPRAM HYDROBROMIDE 20 MG TABLET PO SCH (10:51)
[2023-06-11] MEDS: PETROLATUM,WHITE 28 GM JELLY TP SCH (10:51)
[2023-06-11] MEDS: MULTIVITAMINS WITH MINERALS, THERAPEUTIC TABLET PO SCH (10:51)
== END 2023-06-11 11:26 | disposition short-term general hospital (02) | DRG 885 ==
LOC: 3EI 23:30
PROVIDERS: ADMIT Psychiatry & Neurology Psychiatry; ATTEND Psychiatry & Neurology Psychiatry
DX: F20.0 Paranoid schizophrenia (principal); E43 Unspecified severe protein-calorie malnutrition; J18.9 Pneumonia, unspecified organism; G93.41 Metabolic encephalopathy; K56.7 Ileus, unspecified; L03.116 Cellulitis of left lower limb; L03.115 Cellulitis of right lower limb; Z20.822 Contact with and (suspected) exposure to COVID-19; L97.519 Non-pressure chronic ulcer of other part of right foot with unspecified severity; L97.529 Non-pressure chronic ulcer of other part of left foot with unspecified severity; D64.9 Anemia, unspecified; E87.5 Hyperkalemia; F03.90 Unspecified dementia, unspecified severity, without behavioral disturbance, psychotic disturbance, mood disturbance, and anxiety; Z79.899 Other long term (current) drug therapy; Z68.28 Body mass index [BMI] 28.0-28.9, adult
CPT/HCPCS: 80048; 80053; 80061; 83036; 84132; 85025; 87081; 97110; 97161; 97165; 97535; Q9967

== ENCOUNTER 2023-06-11 11:41 | Inpatient (IN) | payer OTHER ==
[2023-06-11 12:35] VITALS: BP 142/60; PULSE 97; RESP 18; TEMP 97.7
[2023-06-11] MEDS ORDERED: MORPHINE SULFATE 2 MG/ML SYRINGE IVP PRN (13:15)
[2023-06-11] MEDS ORDERED: BISACODYL 10 MG RECTAL RECTAL SUPPOSITORY PR PRN (13:15)
[2023-06-11] MEDS ORDERED: SODIUM CHLORIDE 0.9% 1,000 ML IV ONE (13:15)
[2023-06-11] MEDS ORDERED: MAGNESIUM HYDROXIDE SUSPENSION 30 ML UDCUP PO PRN (13:15)
[2023-06-11] MEDS ORDERED: HYDROCODONE/ACETAMINOPHEN 5-325 MG TABLET PO PRN (13:15)
[2023-06-11] MEDS ORDERED: ONDANSETRON HCL 4 MG/2 ML VIAL IVP PRN (13:15)
[2023-06-11] MEDS: HEPARIN SODIUM,PORCINE 5,000 UNITS/ML VIAL SQ SCH ×2 (14:16→23:03)
[2023-06-11] MEDS: AZITHROMYCIN 500 MG/NS 250 ML IV SCH (14:29)
[2023-06-11 16:00] VITALS: BP 147/63; PULSE 93; RESP 19; TEMP 98.9
[2023-06-11 19:40] VITALS: BP 105/62; PULSE 89; RESP 16; TEMP 99.6
[2023-06-11] MEDS: MEMANTINE HCL 10 MG TABLET PO SCH (20:26)
[2023-06-11] MEDS: ZOLPIDEM TARTRATE 5 MG TABLET PO PRN (20:26)
[2023-06-11] MEDS: DOCUSATE SODIUM 100 MG CAPSULE PO SCH (20:26)
[2023-06-11] MEDS: RisperiDONE 1 MG TABLET PO SCH (20:26)
[2023-06-11] MEDS: DONEPEZIL HCL 10 MG TABLET PO SCH (20:27)
[2023-06-12 04:05] VITALS: BP 102/66; PULSE 76; RESP 16; TEMP 98.8
[2023-06-12 07:21] LABS: BASOPHILS % (AUTO) 0.3 % (0.0-2.0); EOSINOPHILS % (AUTO) 0.1 % (1.0-6.0); HEMATOCRIT 24.8 % (41-53); LYMPHOCYTES % (AUTO) 20.4 % (22.0-44.0); MEAN CORPUSCULAR HEMOGLOBIN 29.1 pg (26.0-34.0); MEAN CORPUSCULAR HGB CONC 32.4 G/dL (31.0-37.0); MEAN CORPUSCULAR VOLUME 90 fL (80-100); MONOCYTES # (AUTO) 0.8 K/uL (0.1-1.0); MONOCYTES % (AUTO) 17.2 % (2.0-9.0); NEUTROPHILS # (AUTO) 2.9 K/uL (1.8-7.7); PLATELET COUNT (AUTO) 164 K/uL (150-450); RED BLOOD CELL COUNT(AUTO) 2.76 MIL/uL (4.50-5.90); WHITE BLOOD COUNT (AUTO) 4.7 K/uL (4.5-11.0)
[2023-06-12 07:22] VITALS: BP 106/68; PULSE 84; RESP 18; TEMP 98.7
[2023-06-12 07:38] LABS: CALCIUM, TOTAL 8.6 mg/dL (8.8-10.5); CREATININE 1.68 mg/dL (0.60-1.30); POTASSIUM 4.7 mmol/L (3.5-5.1)
[2023-06-12] MEDS: HEPARIN SODIUM,PORCINE 5,000 UNITS/ML VIAL SQ SCH ×3 (08:35→23:15)
[2023-06-12] MEDS: PANTOPRAZOLE SODIUM 40 MG DR TABLET PO SCH (08:35)
[2023-06-12] MEDS: DOCUSATE SODIUM 100 MG CAPSULE PO SCH ×2 (08:35→20:05)
[2023-06-12] MEDS: RisperiDONE 1 MG TABLET PO SCH ×2 (08:35→20:05)
[2023-06-12] MEDS: CITALOPRAM HYDROBROMIDE 20 MG TABLET PO SCH (09:15)
[2023-06-12] MEDS: AZITHROMYCIN 500 MG/NS 250 ML IV SCH (13:23)
[2023-06-12] MEDS ORDERED: SODIUM CHLORIDE 0.9% 100 ML ONE (13:29)
[2023-06-12 15:05] VITALS: BP 124/72; PULSE 82; RESP 20; TEMP 99.1
[2023-06-12 19:35] VITALS: BP 125/77; PULSE 71; RESP 16; TEMP 99.2
[2023-06-12] MEDS: MEMANTINE HCL 10 MG TABLET PO SCH (20:05)
[2023-06-12] MEDS: DONEPEZIL HCL 10 MG TABLET PO SCH (20:05)
[2023-06-12] MEDS: ZOLPIDEM TARTRATE 5 MG TABLET PO PRN (20:05)
[2023-06-12] MEDS: ACETAMINOPHEN 325 MG TABLET PO PRN (23:15)
[2023-06-12 23:38] LABS: COVID AG,FIA SOURCE NASOPHARYNGEAL
[2023-06-12 23:46] LABS: SARS-COV2 (COVID) ANTIGEN,FIA Negative (Negative)
[2023-06-13 04:45] VITALS: BP 137/88; PULSE 72; RESP 18; TEMP 98.5
[2023-06-13 07:00] LABS: BASOPHILS % (AUTO) 0.4 % (0.0-2.0); EOSINOPHILS % (AUTO) 0.8 % (1.0-6.0); HEMATOCRIT 27.2 % (41-53); HEMOGLOBIN 8.7 g/dL (13.5-17.5); LYMPHOCYTES % (AUTO) 27.1 % (22.0-44.0); MEAN CORPUSCULAR HGB CONC 31.9 G/dL (31.0-37.0); MEAN CORPUSCULAR VOLUME 91 fL (80-100); MONOCYTES # (AUTO) 0.6 K/uL (0.1-1.0); MONOCYTES % (AUTO) 16.6 % (2.0-9.0); NEUTROPHILS % (AUTO) 55.1 % (40.0-70.0); PLATELET COUNT (AUTO) 163 K/uL (150-450); RED BLOOD CELL COUNT(AUTO) 2.99 MIL/uL (4.50-5.90); RED CELL DISTRIBUTION WIDTH 12.8 % (11.5-14.5); WHITE BLOOD COUNT (AUTO) 3.6 K/uL (4.5-11.0)
[2023-06-13 07:12] LABS: CALCIUM, TOTAL 9.1 mg/dL (8.8-10.5); CREATININE 1.49 mg/dL (0.60-1.30); POTASSIUM 4.4 mmol/L (3.5-5.1)
[2023-06-13 07:25] VITALS: BP 134/84; PULSE 74; RESP 18; TEMP 98.7
[2023-06-13] MEDS: HEPARIN SODIUM,PORCINE 5,000 UNITS/ML VIAL SQ SCH ×3 (08:24→23:42)
[2023-06-13] MEDS: DOCUSATE SODIUM 100 MG CAPSULE PO SCH ×2 (08:24→20:47)
[2023-06-13] MEDS: PANTOPRAZOLE SODIUM 40 MG DR TABLET PO SCH (08:24)
[2023-06-13] MEDS: RisperiDONE 1 MG TABLET PO SCH ×2 (08:24→20:47)
[2023-06-13] MEDS: CITALOPRAM HYDROBROMIDE 20 MG TABLET PO SCH (08:24)
[2023-06-13] MEDS ORDERED: SODIUM CHLORIDE 0.9% 1,000 ML IV ONE (09:45)
[2023-06-13] MEDS: AZITHROMYCIN 500 MG/NS 250 ML IV SCH (14:27)
[2023-06-13 15:14] VITALS: BP 128/82; PULSE 76; RESP 18; TEMP 99.2
[2023-06-13 20:12] VITALS: BP 127/73; PULSE 75; RESP 18; TEMP 100.4
[2023-06-13] MEDS: DONEPEZIL HCL 10 MG TABLET PO SCH (20:47)
[2023-06-13] MEDS: MEMANTINE HCL 10 MG TABLET PO SCH (20:47)
[2023-06-13] MEDS: ACETAMINOPHEN 325 MG TABLET PO PRN (20:48)
[2023-06-13 23:42] VITALS: BP 147/77; PULSE 71; RESP 18; TEMP 98.8
[2023-06-14 04:29] VITALS: BP 137/77; PULSE 70; RESP 19; TEMP 99.1
[2023-06-14 07:40] VITALS: BP 134/78; PULSE 74; RESP 20; TEMP 99.4
[2023-06-14 07:52] LABS: ANION GAP 5 mmol/L (8-16); CALCIUM, TOTAL 8.6 mg/dL (8.8-10.5); CARBON DIOXIDE 29 mmol/L (22-29); CHLORIDE 102 mmol/L (98-107); CREATININE 1.35 mg/dL (0.60-1.30); GLOMERULAR FILTR. RATE CALC > 60 mL/min (>60); GLUCOSE,RANDOM 196 mg/dL (70-110); POTASSIUM 4.7 mmol/L (3.5-5.1); SODIUM SERUM 135 mmol/L (136-145); UREA NITROGEN, BLOOD 32 mg/dL (7-18)
[2023-06-14 08:05] LABS: BASOPHILS % (AUTO) 0.3 % (0.0-2.0); EOSINOPHILS % (AUTO) 0.9 % (1.0-6.0); HEMATOCRIT 24.6 % (41-53); HEMOGLOBIN 8.3 g/dL (13.5-17.5); LYMPHOCYTES # (AUTO) 0.7 K/uL (1.0-4.8); LYMPHOCYTES % (AUTO) 20.3 % (22.0-44.0); MEAN CORPUSCULAR HEMOGLOBIN 30.4 pg (26.0-34.0); MEAN CORPUSCULAR HGB CONC 33.7 G/dL (31.0-37.0); MEAN CORPUSCULAR VOLUME 90 fL (80-100); MONOCYTES # (AUTO) 0.6 K/uL (0.1-1.0); MONOCYTES % (AUTO) 16.9 % (2.0-9.0); NEUTROPHILS % (AUTO) 61.6 % (40.0-70.0); PLATELET COUNT (AUTO) 161 K/uL (150-450); RED BLOOD CELL COUNT(AUTO) 2.73 MIL/uL (4.50-5.90); RED CELL DISTRIBUTION WIDTH 12.5 % (11.5-14.5); WHITE BLOOD COUNT (AUTO) 3.3 K/uL (4.5-11.0)
[2023-06-14] MEDS: DOCUSATE SODIUM 100 MG CAPSULE PO SCH ×2 (08:44→20:56)
[2023-06-14] MEDS: CITALOPRAM HYDROBROMIDE 20 MG TABLET PO SCH (08:44)
[2023-06-14] MEDS: RisperiDONE 1 MG TABLET PO SCH ×2 (08:44→20:56)
[2023-06-14] MEDS: HEPARIN SODIUM,PORCINE 5,000 UNITS/ML VIAL SQ SCH ×3 (08:44→23:35)
[2023-06-14] MEDS: PANTOPRAZOLE SODIUM 40 MG DR TABLET PO SCH (08:44)
[2023-06-14] MEDS ORDERED: SODIUM CHLORIDE 0.9% 1,000 ML IV ONE (11:45)
[2023-06-14] MEDS: AZITHROMYCIN 500 MG/NS 250 ML IV SCH (13:50)
[2023-06-14 15:34] VITALS: BP 147/85; PULSE 81; RESP 20; TEMP 98.9
[2023-06-14 19:43] VITALS: BP 146/84; PULSE 77; RESP 20; TEMP 100.4
[2023-06-14] MEDS: DONEPEZIL HCL 10 MG TABLET PO SCH (20:56)
[2023-06-14] MEDS: MEMANTINE HCL 10 MG TABLET PO SCH (20:56)
[2023-06-14] MEDS: ACETAMINOPHEN 325 MG TABLET PO PRN (20:56)
[2023-06-14] MEDS ORDERED: GuaiFENesin/D-METHORPHAN [SUGAR-FREE] 200-20MG/10 ML SYRUP UDCUP PO PRN (21:30)
[2023-06-15 03:36] VITALS: BP 127/72; PULSE 67; RESP 20; TEMP 97.9
[2023-06-15 07:17] VITALS: BP 131/77; PULSE 73; RESP 20; TEMP 98.9
[2023-06-15 07:25] LABS: HEMOGLOBIN 8.2 g/dL (13.5-17.5); MEAN CORPUSCULAR HEMOGLOBIN 29.9 pg (26.0-34.0); MEAN CORPUSCULAR HGB CONC 32.9 G/dL (31.0-37.0); MEAN CORPUSCULAR VOLUME 91 fL (80-100); PLATELET COUNT (AUTO) 164 K/uL (150-450); RED BLOOD CELL COUNT(AUTO) 2.76 MIL/uL (4.50-5.90); RED CELL DISTRIBUTION WIDTH 12.5 % (11.5-14.5); WHITE BLOOD COUNT (AUTO) 2.7 K/uL (4.5-11.0)
[2023-06-15 07:42] LABS: ANION GAP 6 mmol/L (8-16); CALCIUM, TOTAL 8.4 mg/dL (8.8-10.5); CARBON DIOXIDE 26 mmol/L (22-29); CHLORIDE 103 mmol/L (98-107); CREATININE 1.25 mg/dL (0.60-1.30); GLOMERULAR FILTR. RATE CALC > 60 mL/min (>60); GLUCOSE,RANDOM 144 mg/dL (70-110); POTASSIUM 4.5 mmol/L (3.5-5.1); SODIUM SERUM 135 mmol/L (136-145); UREA NITROGEN, BLOOD 30 mg/dL (7-18)
[2023-06-15 08:12] LABS: BAND NEUTROPHILS % (MANUAL) 9 % (0-5); LYMPHOCYTES % (MANUAL) 28 % (22-44); MONOCYTES % (MANUAL) 5 % (2-9); SEGMENTED NEUTROPHILS % 58 % (40-70); TOTAL CELLS COUNTED 100
[2023-06-15 08:13] LABS: RBC MORPHOLOGY COMMENT NORMAL RBC MORPH
[2023-06-15] MEDS: RisperiDONE 1 MG TABLET PO SCH ×2 (09:29→20:22)
[2023-06-15] MEDS: PANTOPRAZOLE SODIUM 40 MG DR TABLET PO SCH (09:29)
[2023-06-15] MEDS: CITALOPRAM HYDROBROMIDE 20 MG TABLET PO SCH (09:29)
[2023-06-15] MEDS: DOCUSATE SODIUM 100 MG CAPSULE PO SCH ×2 (09:30→20:24)
[2023-06-15] MEDS: CefTRIAXone 1 GM/DEXTROSE 50 ML IV SCH (09:30)
[2023-06-15] MEDS: HEPARIN SODIUM,PORCINE 5,000 UNITS/ML VIAL SQ SCH ×2 (09:30→15:30)
[2023-06-15] MEDS: AZITHROMYCIN 500 MG/NS 250 ML IV SCH (15:30)
[2023-06-15] MEDS ORDERED: VANCOMYCIN HCL 1.5 GM in DEXTROSE 5%-WATER 250 ML IV ONE (16:00)
[2023-06-15 16:22] VITALS: BP 128/76; PULSE 95; RESP 20; TEMP 99.7
[2023-06-15 20:00] VITALS: BP 138/77; PULSE 77; RESP 18; TEMP 100.1
[2023-06-15] MEDS: DONEPEZIL HCL 10 MG TABLET PO SCH (20:22)
[2023-06-15] MEDS: ACETAMINOPHEN 325 MG TABLET PO PRN (20:24)
[2023-06-15] MEDS: MEMANTINE HCL 10 MG TABLET PO SCH (20:24)
[2023-06-16] MEDS: HEPARIN SODIUM,PORCINE 5,000 UNITS/ML VIAL SQ SCH ×4 (00:31→23:57)
[2023-06-16 00:41] VITALS: TEMP 99
[2023-06-16] MEDS ORDERED: SODIUM CHLORIDE 0.9% 500 ML IV ONE (04:56)
[2023-06-16 05:53] VITALS: BP 128/73; PULSE 65; RESP 20; TEMP 98.8
[2023-06-16 06:51] LABS: HEMOGLOBIN 8.4 g/dL (13.5-17.5); MEAN CORPUSCULAR HEMOGLOBIN 30.2 pg (26.0-34.0); MEAN CORPUSCULAR HGB CONC 33.4 G/dL (31.0-37.0); MEAN CORPUSCULAR VOLUME 90 fL (80-100); PLATELET COUNT (AUTO) 177 K/uL (150-450); RED BLOOD CELL COUNT(AUTO) 2.78 MIL/uL (4.50-5.90); RED CELL DISTRIBUTION WIDTH 12.4 % (11.5-14.5)
[2023-06-16 07:05] LABS: ANION GAP 5 mmol/L (8-16); CALCIUM, TOTAL 8.7 mg/dL (8.8-10.5); CARBON DIOXIDE 26 mmol/L (22-29); CHLORIDE 100 mmol/L (98-107); CREATININE 1.41 mg/dL (0.60-1.30); GLOMERULAR FILTR. RATE CALC > 60 mL/min (>60); GLUCOSE,RANDOM 157 mg/dL (70-110); POTASSIUM 4.8 mmol/L (3.5-5.1); SODIUM SERUM 131 mmol/L (136-145); UREA NITROGEN, BLOOD 42 mg/dL (7-18)
[2023-06-16 08:13] LABS: BAND NEUTROPHILS % (MANUAL) 3 % (0-5); LYMPHOCYTES % (MANUAL) 32 % (22-44); MONOCYTES % (MANUAL) 7 % (2-9); SEGMENTED NEUTROPHILS % 58 % (40-70); TOTAL CELLS COUNTED 100
[2023-06-16 08:14] LABS: RBC MORPHOLOGY COMMENT NORMAL RBC MORPH
[2023-06-16] MEDS: CefTRIAXone 1 GM/DEXTROSE 50 ML IV SCH (08:39)
[2023-06-16] MEDS: PANTOPRAZOLE SODIUM 40 MG DR TABLET PO SCH (08:40)
[2023-06-16] MEDS: DOCUSATE SODIUM 100 MG CAPSULE PO SCH ×2 (08:40→20:35)
[2023-06-16] MEDS: VANCOMYCIN 1GM/WATER(PEG/NADA) 200 ML IV SCH ×2 (08:40→20:36)
[2023-06-16] MEDS: CITALOPRAM HYDROBROMIDE 20 MG TABLET PO SCH (08:44)
[2023-06-16] MEDS: RisperiDONE 1 MG TABLET PO SCH ×2 (08:44→20:35)
[2023-06-16 08:51] VITALS: BP 123/60; PULSE 67; RESP 19; TEMP 98.8
[2023-06-16] MEDS: AZITHROMYCIN 500 MG/NS 250 ML IV SCH (14:34)
[2023-06-16 16:41] VITALS: BP 119/68; PULSE 102; RESP 18; TEMP 99.5
[2023-06-16 19:25] VITALS: BP 124/77; PULSE 93; RESP 20; TEMP 99
[2023-06-16] MEDS: CLOTRIMAZOLE 1% 15 GM CREAM TP SCH (20:35)
[2023-06-16] MEDS: DONEPEZIL HCL 10 MG TABLET PO SCH (20:35)
[2023-06-16] MEDS: MEMANTINE HCL 10 MG TABLET PO SCH (20:35)
[2023-06-17 04:32] VITALS: BP 124/77; PULSE 82; RESP 18; TEMP 98.4
[2023-06-17 07:30] VITALS: BP 128/74; PULSE 84; RESP 20; TEMP 99.2
[2023-06-17 07:37] LABS: HEMATOCRIT 25.7 % (41-53); HEMOGLOBIN 8.5 g/dL (13.5-17.5); MEAN CORPUSCULAR HEMOGLOBIN 29.8 pg (26.0-34.0); MEAN CORPUSCULAR HGB CONC 33.1 G/dL (31.0-37.0); MEAN CORPUSCULAR VOLUME 90 fL (80-100); PLATELET COUNT (AUTO) 173 K/uL (150-450); RED BLOOD CELL COUNT(AUTO) 2.86 MIL/uL (4.50-5.90); RED CELL DISTRIBUTION WIDTH 12.8 % (11.5-14.5); WHITE BLOOD COUNT (AUTO) 2.8 K/uL (4.5-11.0)
[2023-06-17 07:58] LABS: ANION GAP 10 mmol/L (8-16); CALCIUM, TOTAL 8.9 mg/dL (8.8-10.5); CARBON DIOXIDE 23 mmol/L (22-29); CHLORIDE 97 mmol/L (98-107); CREATININE 1.36 mg/dL (0.60-1.30); GLOMERULAR FILTR. RATE CALC > 60 mL/min (>60); GLUCOSE,RANDOM 188 mg/dL (70-110); POTASSIUM 4.7 mmol/L (3.5-5.1); SODIUM SERUM 130 mmol/L (136-145); UREA NITROGEN, BLOOD 47 mg/dL (7-18); VANCOMYCIN,RANDOM 17.5 mcg/mL (25.0-50.0)
[2023-06-17] MEDS: DOCUSATE SODIUM 100 MG CAPSULE PO SCH ×2 (08:13→21:00)
[2023-06-17] MEDS: VANCOMYCIN 1GM/WATER(PEG/NADA) 200 ML IV SCH ×2 (08:13→21:19)
[2023-06-17] MEDS: CefTRIAXone 1 GM/DEXTROSE 50 ML IV SCH (08:13)
[2023-06-17] MEDS: PANTOPRAZOLE SODIUM 40 MG DR TABLET PO SCH (08:14)
[2023-06-17] MEDS: RisperiDONE 1 MG TABLET PO SCH ×2 (08:14→21:20)
[2023-06-17] MEDS: HEPARIN SODIUM,PORCINE 5,000 UNITS/ML VIAL SQ SCH ×3 (08:14→23:40)
[2023-06-17] MEDS: CLOTRIMAZOLE 1% 15 GM CREAM TP SCH ×2 (08:23→21:31)
[2023-06-17] MEDS: CITALOPRAM HYDROBROMIDE 20 MG TABLET PO SCH (08:23)
[2023-06-17 09:00] LABS: BAND NEUTROPHILS % (MANUAL) 0 % (0-5)
[2023-06-17 09:12] LABS: LYMPHOCYTES % (MANUAL) 19 % (22-44); MONOCYTES % (MANUAL) 17 % (2-9); MYELOCYTES % 1 % (0-0); SEGMENTED NEUTROPHILS % 63 % (40-70); TOTAL CELLS COUNTED 100
[2023-06-17 13:01] LABS: ALBUMIN 2.5 g/dL (3.4-5.0); BILIRUBIN,DIRECT 0.1 mg/dL (0.00-0.20); BILIRUBIN,TOTAL 0.3 mg/dL (0.1-1.0); TOTAL PROTEIN, SERUM 7.7 g/dL (6.4-8.2)
[2023-06-17] MEDS: AMPICILLIN SODIUM 2 GM/NS 100 ML IV SCH ×3 (14:27→23:39)
[2023-06-17 15:10] VITALS: BP 124/68; PULSE 77; RESP 20; TEMP 98.8
[2023-06-17] MEDS ORDERED: BARIUM SULFATE 0.1% SUSPENSION 450 ML BOTTLE ONE ×2 (16:29)
[2023-06-17] MEDS ORDERED: REMDESIVIR 200 MG in SODIUM CHLORIDE 0.9% 250 ML IV ONE (17:00)
[2023-06-17] MEDS ORDERED: CefTRIAXone 1 GM/DEXTROSE 50 ML IV SCH (20:00)
[2023-06-17] MEDS: CefTRIAXone SODIUM 2 GM in DEXTROSE 5%-WATER 50 ML IV SCH (20:12)
[2023-06-17 20:15] VITALS: BP 135/84; PULSE 88; RESP 20; TEMP 98.9
[2023-06-17] MEDS: DONEPEZIL HCL 10 MG TABLET PO SCH (21:20)
[2023-06-17] MEDS: MEMANTINE HCL 10 MG TABLET PO SCH (21:20)
[2023-06-18] MEDS: AMPICILLIN SODIUM 2 GM/NS 100 ML IV SCH ×6 (02:06→22:11)
[2023-06-18 05:38] VITALS: BP 125/80; PULSE 86; RESP 18; TEMP 98.8
[2023-06-18 08:10] LABS: ALANINE AMINOTRANSFERASE 17 U/L (12-78); ALBUMIN 2.4 g/dL (3.4-5.0); ALKALINE PHOSPHATASE 109 U/L (46-116); ANION GAP 8 mmol/L (8-16); ASPARTATE AMINOTRANSFERASE 23 U/L (15-37); BILIRUBIN,TOTAL 0.3 mg/dL (0.1-1.0); CALCIUM, TOTAL 8.7 mg/dL (8.8-10.5); CARBON DIOXIDE 24 mmol/L (22-29); CHLORIDE 101 mmol/L (98-107); CREATININE 1.36 mg/dL (0.60-1.30); GLOMERULAR FILTR. RATE CALC > 60 mL/min (>60); GLUCOSE,RANDOM 165 mg/dL (70-110); POTASSIUM 5.1 mmol/L (3.5-5.1); SODIUM SERUM 133 mmol/L (136-145); TOTAL PROTEIN, SERUM 7.5 g/dL (6.4-8.2); UREA NITROGEN, BLOOD 42 mg/dL (7-18)
[2023-06-18 08:33] VITALS: BP 113/70; PULSE 88; RESP 19; TEMP 98.6
[2023-06-18] MEDS: CefTRIAXone SODIUM 2 GM in DEXTROSE 5%-WATER 50 ML IV SCH ×2 (09:07→20:27)
[2023-06-18] MEDS: RisperiDONE 1 MG TABLET PO SCH ×2 (09:08→20:28)
[2023-06-18] MEDS: CITALOPRAM HYDROBROMIDE 20 MG TABLET PO SCH (09:08)
[2023-06-18] MEDS: PANTOPRAZOLE SODIUM 40 MG DR TABLET PO SCH (09:08)
[2023-06-18] MEDS: DOCUSATE SODIUM 100 MG CAPSULE PO SCH ×2 (09:09→20:36)
[2023-06-18] MEDS: HEPARIN SODIUM,PORCINE 5,000 UNITS/ML VIAL SQ SCH ×3 (09:09→23:02)
[2023-06-18] MEDS: CLOTRIMAZOLE 1% 15 GM CREAM TP SCH ×2 (09:14→20:28)
[2023-06-18] MEDS: VANCOMYCIN 1GM/WATER(PEG/NADA) 200 ML IV SCH (09:14)
[2023-06-18 16:00] VITALS: BP 140/79; PULSE 84; RESP 19; TEMP 98.4
[2023-06-18] MEDS: REMDESIVIR 100 MG in SODIUM CHLORIDE 0.9% 250 ML IV SCH (17:01)
[2023-06-18 19:36] VITALS: BP 135/79; PULSE 92; RESP 18; TEMP 99.4
[2023-06-18] MEDS: MEMANTINE HCL 10 MG TABLET PO SCH (20:28)
[2023-06-18] MEDS: DONEPEZIL HCL 10 MG TABLET PO SCH (20:28)
[2023-06-19] MEDS: AMPICILLIN SODIUM 2 GM/NS 100 ML IV SCH ×6 (02:15→22:43)
[2023-06-19 06:05] VITALS: BP 104/64; PULSE 70; RESP 18; TEMP 98.9
[2023-06-19 08:33] LABS: ALANINE AMINOTRANSFERASE 14 U/L (12-78); ALBUMIN 2.4 g/dL (3.4-5.0); ALKALINE PHOSPHATASE 110 U/L (46-116); ANION GAP 9 mmol/L (8-16); ASPARTATE AMINOTRANSFERASE 23 U/L (15-37); BILIRUBIN,TOTAL 0.2 mg/dL (0.1-1.0); CALCIUM, TOTAL 8.8 mg/dL (8.8-10.5); CARBON DIOXIDE 24 mmol/L (22-29); CHLORIDE 103 mmol/L (98-107); CREATININE 1.22 mg/dL (0.60-1.30); GLOMERULAR FILTR. RATE CALC > 60 mL/min (>60); GLUCOSE,RANDOM 165 mg/dL (70-110); POTASSIUM 4.6 mmol/L (3.5-5.1); SODIUM SERUM 136 mmol/L (136-145); TOTAL PROTEIN, SERUM 7.5 g/dL (6.4-8.2); UREA NITROGEN, BLOOD 39 mg/dL (7-18)
[2023-06-19] MEDS: CLOTRIMAZOLE 1% 15 GM CREAM TP SCH ×2 (09:00→09:27)
[2023-06-19] MEDS: DOCUSATE SODIUM 100 MG CAPSULE PO SCH ×2 (09:02→21:00)
[2023-06-19] MEDS: RisperiDONE 1 MG TABLET PO SCH ×2 (09:02→19:47)
[2023-06-19] MEDS: CefTRIAXone SODIUM 2 GM in DEXTROSE 5%-WATER 50 ML IV SCH ×2 (09:02→19:46)
[2023-06-19] MEDS: HEPARIN SODIUM,PORCINE 5,000 UNITS/ML VIAL SQ SCH ×3 (09:02→23:09)
[2023-06-19] MEDS: PANTOPRAZOLE SODIUM 40 MG DR TABLET PO SCH (09:02)
[2023-06-19] MEDS: CITALOPRAM HYDROBROMIDE 20 MG TABLET PO SCH (09:03)
[2023-06-19 09:28] VITALS: BP 129/76; PULSE 81; RESP 20; TEMP 98.5
[2023-06-19 15:23] VITALS: BP 134/78; PULSE 85; RESP 20; TEMP 98.4
[2023-06-19] MEDS: REMDESIVIR 100 MG in SODIUM CHLORIDE 0.9% 250 ML IV SCH (16:35)
[2023-06-19 19:45] VITALS: BP 142/78; PULSE 87; RESP 20; TEMP 99.7
[2023-06-19] MEDS: DONEPEZIL HCL 10 MG TABLET PO SCH (19:47)
[2023-06-19] MEDS: MEMANTINE HCL 10 MG TABLET PO SCH (19:47)
[2023-06-19] MEDS: ACETAMINOPHEN 325 MG TABLET PO PRN (19:50)
[2023-06-19 23:15] VITALS: BP 106/64; PULSE 75; RESP 18; TEMP 97.9
[2023-06-20] MEDS ORDERED: SODIUM CHLORIDE 0.9% 500 ML IV ONE (01:57)
[2023-06-20] MEDS: AMPICILLIN SODIUM 2 GM/NS 100 ML IV SCH ×6 (02:01→22:05)
[2023-06-20 05:00] VITALS: BP 140/69; PULSE 73; RESP 20; TEMP 98.1
[2023-06-20 07:32] VITALS: BP 134/70; PULSE 76; RESP 20; TEMP 98.4
[2023-06-20 07:40] LABS: ALBUMIN 2.3 g/dL (3.4-5.0); ALKALINE PHOSPHATASE 100 U/L (46-116); ANION GAP 9 mmol/L (8-16); ASPARTATE AMINOTRANSFERASE 24 U/L (15-37); BILIRUBIN,TOTAL 0.2 mg/dL (0.1-1.0); CALCIUM, TOTAL 8.8 mg/dL (8.8-10.5); CARBON DIOXIDE 24 mmol/L (22-29); CHLORIDE 105 mmol/L (98-107); CREATININE 1.25 mg/dL (0.60-1.30); GLOMERULAR FILTR. RATE CALC > 60 mL/min (>60); GLUCOSE,RANDOM 189 mg/dL (70-110); POTASSIUM 4.6 mmol/L (3.5-5.1); SODIUM SERUM 138 mmol/L (136-145); TOTAL PROTEIN, SERUM 7.1 g/dL (6.4-8.2); UREA NITROGEN, BLOOD 38 mg/dL (7-18)
[2023-06-20 07:42] LABS: ALANINE AMINOTRANSFERASE < 6 U/L (12-78)
[2023-06-20] MEDS: CefTRIAXone SODIUM 2 GM in DEXTROSE 5%-WATER 50 ML IV SCH ×2 (08:49→20:36)
[2023-06-20] MEDS: HEPARIN SODIUM,PORCINE 5,000 UNITS/ML VIAL SQ SCH ×3 (08:49→23:35)
[2023-06-20] MEDS: RisperiDONE 1 MG TABLET PO SCH ×2 (08:50→20:36)
[2023-06-20] MEDS: CITALOPRAM HYDROBROMIDE 20 MG TABLET PO SCH (08:50)
[2023-06-20] MEDS: DOCUSATE SODIUM 100 MG CAPSULE PO SCH ×2 (08:50→20:36)
[2023-06-20] MEDS: PANTOPRAZOLE SODIUM 40 MG DR TABLET PO SCH (08:51)
[2023-06-20] MEDS: CLOTRIMAZOLE 1% 15 GM CREAM TP SCH ×2 (08:51→20:38)
[2023-06-20 10:08] LABS: BASOPHILS % (AUTO) 0.4 % (0.0-2.0); EOSINOPHILS % (AUTO) 2.4 % (1.0-6.0); HEMATOCRIT 25.8 % (41-53); HEMOGLOBIN 8.3 g/dL (13.5-17.5); LYMPHOCYTES # (AUTO) 0.9 K/uL (1.0-4.8); LYMPHOCYTES % (AUTO) 19.8 % (22.0-44.0); MEAN CORPUSCULAR HEMOGLOBIN 29.1 pg (26.0-34.0); MEAN CORPUSCULAR VOLUME 91 fL (80-100); MONOCYTES # (AUTO) 0.7 K/uL (0.1-1.0); MONOCYTES % (AUTO) 14.7 % (2.0-9.0); NEUTROPHILS # (AUTO) 2.9 K/uL (1.8-7.7); NEUTROPHILS % (AUTO) 62.7 % (40.0-70.0); PLATELET COUNT (AUTO) 198 K/uL (150-450); RED BLOOD CELL COUNT(AUTO) 2.84 MIL/uL (4.50-5.90); RED CELL DISTRIBUTION WIDTH 12.7 % (11.5-14.5); WHITE BLOOD COUNT (AUTO) 4.6 K/uL (4.5-11.0)
[2023-06-20 15:30] VITALS: BP 128/76; PULSE 81; RESP 20; TEMP 98.7
[2023-06-20] MEDS: REMDESIVIR 100 MG in SODIUM CHLORIDE 0.9% 250 ML IV SCH (16:45)
[2023-06-20 19:37] VITALS: BP 138/80; PULSE 91; RESP 20; TEMP 99.1
[2023-06-20] MEDS: DONEPEZIL HCL 10 MG TABLET PO SCH (20:36)
[2023-06-20] MEDS: MEMANTINE HCL 10 MG TABLET PO SCH (20:36)
[2023-06-21] MEDS: AMPICILLIN SODIUM 2 GM/NS 100 ML IV SCH ×6 (01:59→21:49)
[2023-06-21 04:31] VITALS: BP 138/84; PULSE 81; RESP 20; TEMP 98.8
[2023-06-21 07:36] VITALS: BP 140/82; PULSE 80; RESP 20; TEMP 98.8
[2023-06-21 07:44] LABS: ALANINE AMINOTRANSFERASE 15 U/L (12-78); ALBUMIN 2.3 g/dL (3.4-5.0); ALKALINE PHOSPHATASE 106 U/L (46-116); ANION GAP 7 mmol/L (8-16); ASPARTATE AMINOTRANSFERASE 24 U/L (15-37); BILIRUBIN,TOTAL 0.3 mg/dL (0.1-1.0); CALCIUM, TOTAL 8.8 mg/dL (8.8-10.5); CARBON DIOXIDE 27 mmol/L (22-29); CHLORIDE 102 mmol/L (98-107); CREATININE 1.08 mg/dL (0.60-1.30); GLOMERULAR FILTR. RATE CALC > 60 mL/min (>60); GLUCOSE,RANDOM 148 mg/dL (70-110); POTASSIUM 4.5 mmol/L (3.5-5.1); SODIUM SERUM 136 mmol/L (136-145); TOTAL PROTEIN, SERUM 7.3 g/dL (6.4-8.2); UREA NITROGEN, BLOOD 27 mg/dL (7-18)
[2023-06-21] MEDS: RisperiDONE 1 MG TABLET PO SCH ×2 (08:07→20:20)
[2023-06-21] MEDS: PANTOPRAZOLE SODIUM 40 MG DR TABLET PO SCH (08:08)
[2023-06-21] MEDS: DOCUSATE SODIUM 100 MG CAPSULE PO SCH ×2 (08:08→20:20)
[2023-06-21] MEDS: CITALOPRAM HYDROBROMIDE 20 MG TABLET PO SCH (08:08)
[2023-06-21] MEDS: HEPARIN SODIUM,PORCINE 5,000 UNITS/ML VIAL SQ SCH ×3 (08:08→23:48)
[2023-06-21] MEDS: CefTRIAXone SODIUM 2 GM in DEXTROSE 5%-WATER 50 ML IV SCH ×2 (08:08→20:20)
[2023-06-21] MEDS ORDERED: GADOTERATE MEGLUMINE 10 MMOL/20 ML VIAL IVP ONE (10:15)
[2023-06-21] MEDS: CLOTRIMAZOLE 1% 15 GM CREAM TP SCH ×2 (15:32→23:50)
[2023-06-21 16:17] VITALS: BP 136/80; PULSE 91; RESP 20; TEMP 98.4
[2023-06-21] MEDS: REMDESIVIR 100 MG in SODIUM CHLORIDE 0.9% 250 ML IV SCH (16:51)
[2023-06-21 18:17] LABS: COVID AG,FIA SOURCE NASOPHARYNGEAL
[2023-06-21 19:04] LABS: SARS-COV2 (COVID) ANTIGEN,FIA Positive (Negative)
[2023-06-21 20:18] VITALS: BP 121/67; PULSE 93; RESP 20; TEMP 99.3
[2023-06-21] MEDS: MEMANTINE HCL 10 MG TABLET PO SCH (20:20)
[2023-06-21] MEDS: DONEPEZIL HCL 10 MG TABLET PO SCH (20:20)
[2023-06-22] MEDS: AMPICILLIN SODIUM 2 GM/NS 100 ML IV SCH ×6 (02:02→22:01)
[2023-06-22 05:05] VITALS: BP 146/87; PULSE 94; RESP 20; TEMP 99.3
[2023-06-22 07:26] LABS: BASOPHILS % (AUTO) 0.4 % (0.0-2.0); EOSINOPHILS % (AUTO) 1.3 % (1.0-6.0); HEMATOCRIT 25.6 % (41-53); HEMOGLOBIN 8.4 g/dL (13.5-17.5); LYMPHOCYTES # (AUTO) 0.8 K/uL (1.0-4.8); LYMPHOCYTES % (AUTO) 13.1 % (22.0-44.0); MEAN CORPUSCULAR HEMOGLOBIN 29.7 pg (26.0-34.0); MEAN CORPUSCULAR HGB CONC 32.7 G/dL (31.0-37.0); MEAN CORPUSCULAR VOLUME 91 fL (80-100); MONOCYTES # (AUTO) 0.7 K/uL (0.1-1.0); MONOCYTES % (AUTO) 11.8 % (2.0-9.0); NEUTROPHILS # (AUTO) 4.6 K/uL (1.8-7.7); NEUTROPHILS % (AUTO) 73.4 % (40.0-70.0); PLATELET COUNT (AUTO) 224 K/uL (150-450); RED BLOOD CELL COUNT(AUTO) 2.82 MIL/uL (4.50-5.90); RED CELL DISTRIBUTION WIDTH 12.7 % (11.5-14.5); WHITE BLOOD COUNT (AUTO) 6.2 K/uL (4.5-11.0)
[2023-06-22 07:41] LABS: ANION GAP 6 mmol/L (8-16); CALCIUM, TOTAL 8.9 mg/dL (8.8-10.5); CARBON DIOXIDE 29 mmol/L (22-29); CHLORIDE 102 mmol/L (98-107); CREATININE 1.18 mg/dL (0.60-1.30); GLOMERULAR FILTR. RATE CALC > 60 mL/min (>60); GLUCOSE,RANDOM 143 mg/dL (70-110); POTASSIUM 4.9 mmol/L (3.5-5.1); SODIUM SERUM 137 mmol/L (136-145); UREA NITROGEN, BLOOD 27 mg/dL (7-18)
[2023-06-22 08:00] VITALS: BP 131/80; PULSE 87; RESP 20; TEMP 98.2
[2023-06-22] MEDS: CefTRIAXone SODIUM 2 GM in DEXTROSE 5%-WATER 50 ML IV SCH ×2 (08:11→20:15)
[2023-06-22] MEDS: HEPARIN SODIUM,PORCINE 5,000 UNITS/ML VIAL SQ SCH ×3 (08:11→23:53)
[2023-06-22] MEDS: DOCUSATE SODIUM 100 MG CAPSULE PO SCH ×2 (08:14→20:15)
[2023-06-22] MEDS: PANTOPRAZOLE SODIUM 40 MG DR TABLET PO SCH (08:14)
[2023-06-22] MEDS: RisperiDONE 1 MG TABLET PO SCH ×2 (08:14→20:15)
[2023-06-22] MEDS: CITALOPRAM HYDROBROMIDE 20 MG TABLET PO SCH (08:14)
[2023-06-22] MEDS: CLOTRIMAZOLE 1% 15 GM CREAM TP SCH ×2 (08:15→20:15)
[2023-06-22 16:00] VITALS: BP 101/59; PULSE 84; RESP 20; TEMP 97.8
[2023-06-22 19:45] VITALS: BP 144/76; PULSE 101; RESP 20; TEMP 99.7
[2023-06-22] MEDS: DONEPEZIL HCL 10 MG TABLET PO SCH (20:15)
[2023-06-22] MEDS: MEMANTINE HCL 10 MG TABLET PO SCH (20:15)
[2023-06-22 20:47] VITALS: TEMP 98.5
[2023-06-23] MEDS: AMPICILLIN SODIUM 2 GM/NS 100 ML IV SCH ×6 (01:52→22:16)
[2023-06-23 04:34] VITALS: BP 145/86; PULSE 92; RESP 20; TEMP 98.7
[2023-06-23 07:31] VITALS: BP 140/82; PULSE 88; RESP 20; TEMP 99.2
[2023-06-23 07:45] LABS: BASOPHILS % (AUTO) 0.4 % (0.0-2.0); EOSINOPHILS % (AUTO) 1.7 % (1.0-6.0); HEMATOCRIT 25.6 % (41-53); HEMOGLOBIN 8.3 g/dL (13.5-17.5); LYMPHOCYTES # (AUTO) 0.9 K/uL (1.0-4.8); LYMPHOCYTES % (AUTO) 13.9 % (22.0-44.0); MEAN CORPUSCULAR HEMOGLOBIN 29.8 pg (26.0-34.0); MEAN CORPUSCULAR HGB CONC 32.4 G/dL (31.0-37.0); MEAN CORPUSCULAR VOLUME 92 fL (80-100); MONOCYTES # (AUTO) 0.6 K/uL (0.1-1.0); MONOCYTES % (AUTO) 9.7 % (2.0-9.0); NEUTROPHILS # (AUTO) 4.6 K/uL (1.8-7.7); NEUTROPHILS % (AUTO) 74.3 % (40.0-70.0); PLATELET COUNT (AUTO) 232 K/uL (150-450); RED BLOOD CELL COUNT(AUTO) 2.78 MIL/uL (4.50-5.90); RED CELL DISTRIBUTION WIDTH 12.5 % (11.5-14.5); WHITE BLOOD COUNT (AUTO) 6.1 K/uL (4.5-11.0)
[2023-06-23 08:04] LABS: ANION GAP 7 mmol/L (8-16); CALCIUM, TOTAL 8.7 mg/dL (8.8-10.5); CARBON DIOXIDE 27 mmol/L (22-29); CHLORIDE 101 mmol/L (98-107); CREATININE 1.18 mg/dL (0.60-1.30); GLOMERULAR FILTR. RATE CALC > 60 mL/min (>60); GLUCOSE,RANDOM 158 mg/dL (70-110); POTASSIUM 4.5 mmol/L (3.5-5.1); SODIUM SERUM 135 mmol/L (136-145); UREA NITROGEN, BLOOD 32 mg/dL (7-18)
[2023-06-23] MEDS: CefTRIAXone SODIUM 2 GM in DEXTROSE 5%-WATER 50 ML IV SCH ×2 (08:12→20:48)
[2023-06-23] MEDS: CITALOPRAM HYDROBROMIDE 20 MG TABLET PO SCH (08:13)
[2023-06-23] MEDS: RisperiDONE 1 MG TABLET PO SCH ×2 (08:13→20:47)
[2023-06-23] MEDS: PANTOPRAZOLE SODIUM 40 MG DR TABLET PO SCH (08:13)
[2023-06-23] MEDS: HEPARIN SODIUM,PORCINE 5,000 UNITS/ML VIAL SQ SCH ×3 (08:13→23:12)
[2023-06-23] MEDS: DOCUSATE SODIUM 100 MG CAPSULE PO SCH ×2 (08:13→20:47)
[2023-06-23] MEDS: CLOTRIMAZOLE 1% 15 GM CREAM TP SCH ×2 (09:41→20:48)
[2023-06-23 15:16] VITALS: BP 134/78; PULSE 92; RESP 20; TEMP 98.4
[2023-06-23 20:00] VITALS: BP 146/78; PULSE 87; RESP 20; TEMP 98.1
[2023-06-23] MEDS: MEMANTINE HCL 10 MG TABLET PO SCH (20:47)
[2023-06-23] MEDS: DONEPEZIL HCL 10 MG TABLET PO SCH (20:48)
[2023-06-23] MEDS ORDERED: SODIUM CHLORIDE 0.9% 500 ML IV ONE (23:08)
[2023-06-24] MEDS: AMPICILLIN SODIUM 2 GM/NS 100 ML IV SCH ×6 (02:16→22:08)
[2023-06-24 04:07] VITALS: BP 142/84; PULSE 87; RESP 20; TEMP 98.8
[2023-06-24 07:44] LABS: BASOPHILS % (AUTO) 0.4 % (0.0-2.0); EOSINOPHILS % (AUTO) 1.8 % (1.0-6.0); HEMATOCRIT 25.5 % (41-53); HEMOGLOBIN 8.3 g/dL (13.5-17.5); LYMPHOCYTES # (AUTO) 0.7 K/uL (1.0-4.8); MEAN CORPUSCULAR HEMOGLOBIN 29.9 pg (26.0-34.0); MEAN CORPUSCULAR HGB CONC 32.7 G/dL (31.0-37.0); MEAN CORPUSCULAR VOLUME 91 fL (80-100); MONOCYTES # (AUTO) 0.7 K/uL (0.1-1.0); MONOCYTES % (AUTO) 10.7 % (2.0-9.0); NEUTROPHILS # (AUTO) 4.6 K/uL (1.8-7.7); NEUTROPHILS % (AUTO) 75.1 % (40.0-70.0); PLATELET COUNT (AUTO) 249 K/uL (150-450); RED BLOOD CELL COUNT(AUTO) 2.78 MIL/uL (4.50-5.90); RED CELL DISTRIBUTION WIDTH 12.4 % (11.5-14.5); WHITE BLOOD COUNT (AUTO) 6.1 K/uL (4.5-11.0)
[2023-06-24 07:52] LABS: ANION GAP 7 mmol/L (8-16); CARBON DIOXIDE 29 mmol/L (22-29); CHLORIDE 100 mmol/L (98-107); CREATININE 1.18 mg/dL (0.60-1.30); GLOMERULAR FILTR. RATE CALC > 60 mL/min (>60); GLUCOSE,RANDOM 179 mg/dL (70-110); POTASSIUM 4.2 mmol/L (3.5-5.1); SODIUM SERUM 136 mmol/L (136-145); UREA NITROGEN, BLOOD 29 mg/dL (7-18)
[2023-06-24 08:08] VITALS: BP 132/75; PULSE 80; RESP 19; TEMP 98.7
[2023-06-24] MEDS: CefTRIAXone SODIUM 2 GM in DEXTROSE 5%-WATER 50 ML IV SCH ×2 (08:26→20:13)
[2023-06-24] MEDS: RisperiDONE 1 MG TABLET PO SCH ×2 (08:27→20:11)
[2023-06-24] MEDS: DOCUSATE SODIUM 100 MG CAPSULE PO SCH ×2 (08:27→20:48)
[2023-06-24] MEDS: HEPARIN SODIUM,PORCINE 5,000 UNITS/ML VIAL SQ SCH ×2 (08:27→16:38)
[2023-06-24] MEDS: CLOTRIMAZOLE 1% 15 GM CREAM TP SCH ×2 (08:27→20:11)
[2023-06-24] MEDS: PANTOPRAZOLE SODIUM 40 MG DR TABLET PO SCH (08:27)
[2023-06-24] MEDS: CITALOPRAM HYDROBROMIDE 20 MG TABLET PO SCH (08:27)
[2023-06-24 15:27] VITALS: BP 154/93; PULSE 87; RESP 19; TEMP 98.4
[2023-06-24 19:58] VITALS: BP 135/80; PULSE 89; RESP 20; TEMP 98.9
[2023-06-24] MEDS: MEMANTINE HCL 10 MG TABLET PO SCH (20:11)
[2023-06-24] MEDS: DONEPEZIL HCL 10 MG TABLET PO SCH (20:11)
[2023-06-25] MEDS: HEPARIN SODIUM,PORCINE 5,000 UNITS/ML VIAL SQ SCH ×4 (00:25→23:32)
[2023-06-25] MEDS: AMPICILLIN SODIUM 2 GM/NS 100 ML IV SCH ×6 (01:36→22:07)
[2023-06-25 04:20] VITALS: BP 140/70; PULSE 68; RESP 20; TEMP 98.6
[2023-06-25] MEDS: CefTRIAXone SODIUM 2 GM in DEXTROSE 5%-WATER 50 ML IV SCH ×2 (08:20→19:57)
[2023-06-25] MEDS: PANTOPRAZOLE SODIUM 40 MG DR TABLET PO SCH (08:20)
[2023-06-25] MEDS: CITALOPRAM HYDROBROMIDE 20 MG TABLET PO SCH (08:21)
[2023-06-25] MEDS: DOCUSATE SODIUM 100 MG CAPSULE PO SCH ×2 (08:21→20:02)
[2023-06-25] MEDS: RisperiDONE 1 MG TABLET PO SCH ×2 (08:22→20:02)
[2023-06-25] MEDS: CLOTRIMAZOLE 1% 15 GM CREAM TP SCH ×2 (08:22→20:02)
[2023-06-25 15:00] VITALS: BP 137/80; PULSE 74; RESP 19; TEMP 98.8
[2023-06-25 19:30] VITALS: BP 114/74; PULSE 78; RESP 16; TEMP 98.8
[2023-06-25] MEDS: DONEPEZIL HCL 10 MG TABLET PO SCH (20:02)
[2023-06-25] MEDS: MEMANTINE HCL 10 MG TABLET PO SCH (20:02)
[2023-06-26] MEDS: AMPICILLIN SODIUM 2 GM/NS 100 ML IV SCH ×6 (01:59→21:56)
[2023-06-26 04:00] VITALS: BP 148/91; PULSE 79; RESP 16; TEMP 98.7
[2023-06-26] MEDS ORDERED: SODIUM CHLORIDE 0.9% 250 ML IV ONE (06:44)
[2023-06-26] MEDS: RisperiDONE 1 MG TABLET PO SCH ×2 (08:24→20:18)
[2023-06-26] MEDS: HEPARIN SODIUM,PORCINE 5,000 UNITS/ML VIAL SQ SCH ×2 (08:24→17:15)
[2023-06-26] MEDS: CefTRIAXone SODIUM 2 GM in DEXTROSE 5%-WATER 50 ML IV SCH ×2 (08:24→20:18)
[2023-06-26] MEDS: CITALOPRAM HYDROBROMIDE 20 MG TABLET PO SCH (08:25)
[2023-06-26] MEDS: DOCUSATE SODIUM 100 MG CAPSULE PO SCH ×2 (08:25→20:28)
[2023-06-26] MEDS: CLOTRIMAZOLE 1% 15 GM CREAM TP SCH ×2 (08:25→20:18)
[2023-06-26] MEDS: PANTOPRAZOLE SODIUM 40 MG DR TABLET PO SCH (08:25)
[2023-06-26 08:35] VITALS: BP 137/67; PULSE 70; RESP 18; TEMP 98.4
[2023-06-26 19:35] VITALS: BP 139/84; PULSE 78; RESP 18; TEMP 97.9
[2023-06-26] MEDS: MEMANTINE HCL 10 MG TABLET PO SCH (20:18)
[2023-06-26] MEDS: DONEPEZIL HCL 10 MG TABLET PO SCH (20:18)
[2023-06-27] MEDS: HEPARIN SODIUM,PORCINE 5,000 UNITS/ML VIAL SQ SCH ×4 (00:09→23:16)
[2023-06-27] MEDS: AMPICILLIN SODIUM 2 GM/NS 100 ML IV SCH ×3 (01:55→10:46)
[2023-06-27 04:05] VITALS: BP 138/89; PULSE 73; RESP 20; TEMP 97.5
[2023-06-27] MEDS ORDERED: SODIUM CHLORIDE 0.9% 250 ML IV ONE (04:29)
[2023-06-27 07:27] VITALS: BP 140/84; PULSE 74; RESP 20; TEMP 97.8
[2023-06-27] MEDS: CefTRIAXone SODIUM 2 GM in DEXTROSE 5%-WATER 50 ML IV SCH (07:48)
[2023-06-27] MEDS: RisperiDONE 1 MG TABLET PO SCH ×2 (07:48→19:43)
[2023-06-27] MEDS: PANTOPRAZOLE SODIUM 40 MG DR TABLET PO SCH (07:48)
[2023-06-27] MEDS: DOCUSATE SODIUM 100 MG CAPSULE PO SCH ×2 (07:48→19:45)
[2023-06-27] MEDS: CITALOPRAM HYDROBROMIDE 20 MG TABLET PO SCH (07:48)
[2023-06-27] MEDS: CLOTRIMAZOLE 1% 15 GM CREAM TP SCH ×2 (07:49→19:46)
[2023-06-27 15:31] VITALS: BP 138/82; PULSE 79; RESP 20; TEMP 98.2
[2023-06-27] MEDS ORDERED: VANCOMYCIN 1GM/WATER(PEG/NADA) 200 ML IV ONE (16:15)
[2023-06-27] MEDS: MEMANTINE HCL 10 MG TABLET PO SCH (19:43)
[2023-06-27] MEDS: VANCOMYCIN 1GM/WATER(PEG/NADA) 200 ML IV SCH (19:43)
[2023-06-27] MEDS: DONEPEZIL HCL 10 MG TABLET PO SCH (19:45)
[2023-06-27 20:14] VITALS: BP 149/85; PULSE 79; RESP 18; TEMP 98.5
[2023-06-28 04:59] VITALS: BP 146/81; PULSE 73; RESP 18; TEMP 97.7
[2023-06-28 06:55] LABS: CALCIUM, TOTAL 9.9 mg/dL (8.8-10.5); CARBON DIOXIDE 28 mmol/L (22-29); CHLORIDE 95 mmol/L (98-107); CREATININE 1.05 mg/dL (0.60-1.30); GLOMERULAR FILTR. RATE CALC > 60 mL/min (>60); GLUCOSE,RANDOM 189 mg/dL (70-110); POTASSIUM 4.6 mmol/L (3.5-5.1); UREA NITROGEN, BLOOD 21 mg/dL (7-18)
[2023-06-28 07:04] LABS: ANION GAP 5 mmol/L (8-16); SODIUM SERUM 128 mmol/L (136-145)
[2023-06-28 07:24] VITALS: BP 138/82; PULSE 74; RESP 20; TEMP 98.2
[2023-06-28] MEDS: CITALOPRAM HYDROBROMIDE 20 MG TABLET PO SCH (07:59)
[2023-06-28] MEDS: PANTOPRAZOLE SODIUM 40 MG DR TABLET PO SCH (07:59)
[2023-06-28] MEDS: RisperiDONE 1 MG TABLET PO SCH ×2 (07:59→19:39)
[2023-06-28] MEDS: HEPARIN SODIUM,PORCINE 5,000 UNITS/ML VIAL SQ SCH ×3 (08:00→23:15)
[2023-06-28] MEDS: VANCOMYCIN 1GM/WATER(PEG/NADA) 200 ML IV SCH ×2 (08:00→19:39)
[2023-06-28] MEDS: DOCUSATE SODIUM 100 MG CAPSULE PO SCH ×2 (08:00→19:39)
[2023-06-28] MEDS: CLOTRIMAZOLE 1% 15 GM CREAM TP SCH ×2 (08:01→19:47)
[2023-06-28 15:39] VITALS: BP 140/82; PULSE 76; RESP 20; TEMP 97.8
[2023-06-28 19:17] VITALS: BP 130/79; PULSE 80; RESP 18; TEMP 98
[2023-06-28] MEDS ORDERED: SODIUM CHLORIDE 0.9% 250 ML IV ONE (19:37)
[2023-06-28] MEDS: MEMANTINE HCL 10 MG TABLET PO SCH (19:39)
[2023-06-28] MEDS: DONEPEZIL HCL 10 MG TABLET PO SCH (19:39)
[2023-06-29 04:26] VITALS: BP 141/89; PULSE 79; RESP 18; TEMP 98.4
[2023-06-29 07:18] LABS: ANION GAP 6 mmol/L (8-16); CALCIUM, TOTAL 9.9 mg/dL (8.8-10.5); CARBON DIOXIDE 26 mmol/L (22-29); CHLORIDE 97 mmol/L (98-107); CREATININE 1.07 mg/dL (0.60-1.30); GLOMERULAR FILTR. RATE CALC > 60 mL/min (>60); GLUCOSE,RANDOM 161 mg/dL (70-110); POTASSIUM 4.4 mmol/L (3.5-5.1); SODIUM SERUM 129 mmol/L (136-145); UREA NITROGEN, BLOOD 25 mg/dL (7-18); VANCOMYCIN,RANDOM 19.4 mcg/mL (25.0-50.0)
[2023-06-29 08:13] VITALS: BP 133/75; PULSE 89; RESP 19; TEMP 98.6
[2023-06-29] MEDS: DOCUSATE SODIUM 100 MG CAPSULE PO SCH ×2 (08:16→20:38)
[2023-06-29] MEDS: RisperiDONE 1 MG TABLET PO SCH ×2 (08:16→20:38)
[2023-06-29] MEDS: HEPARIN SODIUM,PORCINE 5,000 UNITS/ML VIAL SQ SCH ×2 (08:16→16:38)
[2023-06-29] MEDS: PANTOPRAZOLE SODIUM 40 MG DR TABLET PO SCH (08:16)
[2023-06-29] MEDS: VANCOMYCIN 1GM/WATER(PEG/NADA) 200 ML IV SCH ×2 (08:16→20:25)
[2023-06-29] MEDS: CITALOPRAM HYDROBROMIDE 20 MG TABLET PO SCH (08:16)
[2023-06-29] MEDS: CLOTRIMAZOLE 1% 15 GM CREAM TP SCH ×2 (08:25→21:33)
[2023-06-29 16:00] VITALS: BP 143/89; PULSE 80; RESP 19; TEMP 98.1
[2023-06-29 19:40] VITALS: BP 148/81; PULSE 83; RESP 18; TEMP 98.4
[2023-06-29] MEDS: DONEPEZIL HCL 10 MG TABLET PO SCH (20:38)
[2023-06-29] MEDS: MEMANTINE HCL 10 MG TABLET PO SCH (20:38)
[2023-06-30] MEDS: HEPARIN SODIUM,PORCINE 5,000 UNITS/ML VIAL SQ SCH ×3 (00:52→16:41)
[2023-06-30 04:44] VITALS: BP 125/76; PULSE 80; RESP 18; TEMP 98.2
[2023-06-30 07:27] VITALS: BP 124/78; PULSE 82; RESP 18; TEMP 98.6
[2023-06-30 07:29] LABS: CALCIUM, TOTAL 9.4 mg/dL (8.8-10.5); CARBON DIOXIDE 26 mmol/L (22-29); CHLORIDE 98 mmol/L (98-107); CREATININE 1.24 mg/dL (0.60-1.30); GLOMERULAR FILTR. RATE CALC > 60 mL/min (>60); GLUCOSE,RANDOM 166 mg/dL (70-110); POTASSIUM 4.6 mmol/L (3.5-5.1); UREA NITROGEN, BLOOD 31 mg/dL (7-18)
[2023-06-30 07:34] LABS: ANION GAP 11 mmol/L (8-16); SODIUM SERUM 135 mmol/L (136-145)
[2023-06-30] MEDS: VANCOMYCIN 1GM/WATER(PEG/NADA) 200 ML IV SCH (07:42)
[2023-06-30] MEDS: DOCUSATE SODIUM 100 MG CAPSULE PO SCH ×2 (07:43→21:34)
[2023-06-30] MEDS: RisperiDONE 1 MG TABLET PO SCH ×2 (07:43→21:36)
[2023-06-30] MEDS: CITALOPRAM HYDROBROMIDE 20 MG TABLET PO SCH (07:43)
[2023-06-30] MEDS: PANTOPRAZOLE SODIUM 40 MG DR TABLET PO SCH (07:43)
[2023-06-30] MEDS: CLOTRIMAZOLE 1% 15 GM CREAM TP SCH ×2 (07:54→21:37)
[2023-06-30] MEDS ORDERED: CLOT15CR29 TP (12:03)
[2023-06-30] MEDS ORDERED: DOCU-385 PO (12:03)
[2023-06-30] MEDS ORDERED: HEPA500018 SQ (12:04)
[2023-06-30] MEDS ORDERED: MEMA10TA11 PO (12:04)
[2023-06-30] MEDS ORDERED: DONE-51 PO (12:04)
[2023-06-30] MEDS ORDERED: RISP1TAB98 PO (12:05)
[2023-06-30] MEDS ORDERED: PANT-31 PO (12:05)
[2023-06-30] MEDS ORDERED: CITA-144 PO (12:06)
[2023-06-30] MEDS ORDERED: VANC1PIG IVPB (12:08)
[2023-06-30] MEDS ORDERED: ACET650S24 PR (12:09)
[2023-06-30] MEDS ORDERED: BISA10SU11 PR (12:11)
[2023-06-30] MEDS ORDERED: CODE10LI PO (12:15)
[2023-06-30] MEDS ORDERED: HYDR-4723 PO (12:16)
[2023-06-30] MEDS ORDERED: MAGN-169 PO (12:17)
[2023-06-30 15:11] VITALS: BP 134/81; PULSE 78; RESP 20; TEMP 98.2
[2023-06-30] MEDS: AMPICILLIN SODIUM 2 GM in SODIUM CHLORIDE 0.9% 100 ML IV SCH ×2 (16:38→22:00)
[2023-06-30] MEDS: CefTRIAXone SODIUM 2 GM in DEXTROSE 5%-WATER 50 ML IV SCH (18:10)
[2023-06-30 19:25] VITALS: BP 141/74; PULSE 80; RESP 18; TEMP 98
[2023-06-30] MEDS: DONEPEZIL HCL 10 MG TABLET PO SCH (21:36)
[2023-06-30] MEDS: MEMANTINE HCL 10 MG TABLET PO SCH (21:36)
[2023-07-01] MEDS: AMPICILLIN SODIUM 2 GM in SODIUM CHLORIDE 0.9% 100 ML IV SCH ×5 (00:36→16:52)
[2023-07-01] MEDS: HEPARIN SODIUM,PORCINE 5,000 UNITS/ML VIAL SQ SCH ×3 (00:40→16:53)
[2023-07-01 04:06] VITALS: BP 141/82; PULSE 76; RESP 18; TEMP 98
[2023-07-01] MEDS: CefTRIAXone SODIUM 2 GM in DEXTROSE 5%-WATER 50 ML IV SCH ×2 (05:47→18:05)
[2023-07-01] MEDS ORDERED: SODIUM CHLORIDE 0.9% 500 ML IV ONE (06:10)
[2023-07-01 08:04] LABS: ANION GAP 10 mmol/L (8-16); CALCIUM, TOTAL 9.7 mg/dL (8.8-10.5); CARBON DIOXIDE 25 mmol/L (22-29); CHLORIDE 97 mmol/L (98-107); CREATININE 1.09 mg/dL (0.60-1.30); GLOMERULAR FILTR. RATE CALC > 60 mL/min (>60); GLUCOSE,RANDOM 144 mg/dL (70-110); POTASSIUM 4.5 mmol/L (3.5-5.1); SODIUM SERUM 132 mmol/L (136-145); UREA NITROGEN, BLOOD 30 mg/dL (7-18)
[2023-07-01 08:20] VITALS: BP 139/80; PULSE 83; RESP 19; TEMP 98
[2023-07-01] MEDS: RisperiDONE 1 MG TABLET PO SCH (10:13)
[2023-07-01] MEDS: CITALOPRAM HYDROBROMIDE 20 MG TABLET PO SCH (10:13)
[2023-07-01] MEDS: CLOTRIMAZOLE 1% 15 GM CREAM TP SCH (10:14)
[2023-07-01] MEDS: PANTOPRAZOLE SODIUM 40 MG DR TABLET PO SCH (10:14)
[2023-07-01] MEDS: DOCUSATE SODIUM 100 MG CAPSULE PO SCH (10:14)
[2023-07-01 16:30] LABS: COVID AG,FIA SOURCE NASOPHARYNGEAL
[2023-07-01 16:53] LABS: SARS-COV2 (COVID) ANTIGEN,FIA Negative (Negative)
== END 2023-07-01 20:10 | DRG 871 ==
LOC: 6N 11:47
PROVIDERS: ADMIT Internal Medicine; ATTEND Internal Medicine
PROC: XW033E5 Introduction of Remdesivir Anti-infective into Peripheral Vein, Percutaneous Approach, New Technology Group 5 (ICD-10-PCS; principal; 2023-06-17)
PROC: 05HA33Z Insertion of Infusion Device into Left Brachial Vein, Percutaneous Approach (ICD-10-PCS; 2023-06-21)
PROC: 05H933Z Insertion of Infusion Device into Right Brachial Vein, Percutaneous Approach (ICD-10-PCS; 2023-06-25)
DX: A41.9 Sepsis, unspecified organism (principal); G93.41 Metabolic encephalopathy; U07.1 COVID-19; N17.0 Acute kidney failure with tubular necrosis; E87.1 Hypo-osmolality and hyponatremia; E87.5 Hyperkalemia; E87.6 Hypokalemia; F20.9 Schizophrenia, unspecified; B35.3 Tinea pedis; D64.9 Anemia, unspecified; L97.519 Non-pressure chronic ulcer of other part of right foot with unspecified severity; L97.529 Non-pressure chronic ulcer of other part of left foot with unspecified severity; K59.00 Constipation, unspecified
CPT/HCPCS: 36245; 36569; 70250; 71045; 72158; 74176; 76937; 80048; 80053; 80076; 80202; 85025; 87040; 87077; 87205; 93306; J0290; J0456; J0696; J1644; J3370; J7030; J7040; J7050; J7060; Q9967; 36415-L1; 36415-TC